=== PATIENT | female | born 1975 | race Caucasian/White ===

== ENCOUNTER 2018-11-11 12:19 | Outpatient (CLI) | payer MEDICARE, MEDICAID ==
[~2018-11-11] VITALS: Ht 170.2 cm; Wt 133.4 kg
[~2018-11-11 12:19] MED LIST: diphenhydrAMINE 25 MG CAP PO SCH
[2018-11-11 12:33] VITALS: BP 140/76
[2018-11-11 14:00] VITALS: BP 136/59
[2018-11-11] MEDS ORDERED: ACETAMINOPHEN 325 MG TAB PO ONE (14:00)
[2018-11-11 23:43] VITALS: BP 198/90
[2018-11-11] MEDS ORDERED: amLODIPine 5 MG TAB PO ONE (23:45)
== END 2018-11-12 00:10 | disposition home or self-care (01) ==
LOC: M OPCLI4PV 12:19 → M MSPAV 12:22 → M OPCLI4PV 11-12 00:10
PROVIDERS: ATTEND Internal Medicine Nephrology
DX: N18.6 End stage renal disease (principal); D63.1 Anemia in chronic kidney disease; Z88.3 Allergy status to other anti-infective agents; Z88.8 Allergy status to other drugs, medicaments and biological substances; Z91.048 Other nonmedicinal substance allergy status; Z91.018 Allergy to other foods
CPT/HCPCS: 36415; 36430; 86850; 86900; 86901; 86920; P9016

== ENCOUNTER → 2019-01-11 | Outpatient (REF) | payer MEDICARE, MEDICAID ==
[~2019-01-11] MED LIST changes: +CINA60TA3; +MELA3TAB; +PANT40TA3; +RENV2.4P; +RENV2TAB; +TRAZ-252; +VITA500045; +[UNRECOGNIZED DRUG - CODE]; -diphenhydrAMINE 25 MG CAP PO SCH
[2019-01-11 17:55] LABS: BASO # 0.1 10^3/uL (0.0-0.2); BASO % 0.8 % (0.0-1.0); EOS # 1.1 10^3/uL (0.0-0.50); EOS % 14.1 % (0.0-3.0); HEMATOCRIT 29.2 % (36.0-47.0); HEMOGLOBIN 9.2 g/dl (12.0-15.5); LYMPH # 2.5 10^3/uL (1.5-4.5); LYMPH % 31.1 % (24.0-44.0); MEAN CORPUSCULAR HEMOGLOBIN 30.4 pg (27.0-33.0); MEAN CORPUSCULAR HGB CONC 31.5 g/dl (32.0-36.5); MEAN CORPUSCULAR VOLUME 96.4 fl (80.0-96.0); MONO # 0.7 10^3/uL (0.0-0.8); MONO % 9.2 % (0.0-5.0); NEUTROPHILS # 3.6 10^3/uL (1.8-7.7); NEUTROPHILS % 44.5 % (36.0-66.0); PLATELET COUNT, AUTOMATED 318 10^3/uL (150-450); RED BLOOD COUNT 3.03 10^6/uL (4.00-5.40)
[2019-01-11 18:17] LABS: ALBUMIN 3.3 GM/DL (3.2-5.2); BILIRUBIN,TOTAL 0.3 MG/DL (0.2-1.0); CALCIUM LEVEL 8.7 MG/DL (8.5-10.1); CHOLESTEROL RISK RATIO 4.974 (<5); CREATININE FOR GFR 7.2 MG/DL (0.55-1.30); FREE T4 0.83 NG/DL (0.76-1.46); GLOMERULAR FILTRATION RATE 6.7 (>58); POTASSIUM SERUM 4.2 MEQ/L (3.5-5.1); THYROID STIMULATING HORMONE 2.57 uIU/ML (0.358-3.740); TOTAL PROTEIN 6.8 GM/DL (6.4-8.2)
[2019-01-11 18:19] LABS: TOTAL 25(OH) VITAMIN D 16.5 NG/ML (30.0-100.0)
[2019-01-11 19:30] LABS: HEMOGLOBIN A1c 4.9 %
[2019-01-15 00:07] LABS: Lyme Disease IgG/IgM Antibodie <0.91 ISR (0.00-0.90); Lyme Disease IgM Ab Quantitati <0.80 index (0.00-0.79)
== END ==
LOC: M LAB REF 17:05
PROVIDERS: ATTEND Family Medicine
DX: Z13.228 Encounter for screening for other metabolic disorders (principal); E07.9 Disorder of thyroid, unspecified; E78.00 Pure hypercholesterolemia, unspecified

== ENCOUNTER → 2019-01-22 | Outpatient (CLI) | payer MEDICARE, MEDICAID ==
[~2019-01-22] MED LIST changes: +BUPIVACAINE HCL 0.5% 10 ML VIAL As Ordered ONE; +ISOVUE-300 61% 50ML VIAL (Q9967) As Ordered ONE; +LIDOCAINE 2% MDV 20 ML VIAL As Ordered ONE; +MIDAZOLAM INJ 2 MG/2 ML VIAL (J2250) As Ordered ONE; +diphenhydrAMINE INJ 50MG/ML VIAL (J1200) As Ordered ONE; +fentaNYL 100 MCG/2 ML INJECTION (J3010) As Ordered ONE
[2019-01-22 10:07] VITALS: BP 118/60
--- NOTE | 2019-01-24 08:16 | REPIR ---
DATE OF PROCEDURE: 01/22/2019 PREOPERATIVE DIAGNOSES: End-stage renal disease. Dysfunctional left basilic vein transposition arteriovenous fistula with aneurysmal degeneration and increased venous pressure. POSTOPERATIVE DIAGNOSES: End-stage renal disease. Dysfunctional left basilic vein transposition arteriovenous fistula with aneurysmal degeneration and increased venous pressure. PROCEDURE: Left basilic transposition arteriovenous fistulogram. Retrograde left brachial artery angiogram. SURGEON: Dr. Kilo Headley. TEST DESK TROUBLE LOCATOR: Jayna Britt. ANESTHESIA: Local with 2 mL of 2% lidocaine mixed with 0.5% Marcaine. FLUORO TIME: 0.1 minutes. CONTRAST: 4 mL of Isovue-300 HEPARIN: None. COMPLICATION: None. DRAINS: None. SPECIMEN: None. IMPLANT: None. INDICATION: The patient is a 43-year-old female with end-stage renal disease who dialyzes through a left basilic vein transposition arteriovenous fistula who has had difficulty with cannulation aneurysmal generation and high venous pressures during hemodialysis. The patient will undergo a fistulogram with possible angioplasty stent and/or atherectomy. DESCRIPTION OF PROCEDURE: The patient was taken to the angiography suite, placed supine on the angiography table and then prepped and draped in a standard surgical fashion. The fistula was cannulated with a micropuncture needle after anesthetizing the overlying skin with lidocaine mixed with 0.5% Marcaine. Micropuncture wire was advanced to through the micropuncture needle which was upsized to a micropuncture sheath. A fistulogram and retrograde left brachial artery angiogram were performed showing no intervention was required. T he micropuncture sheath was removed and manual compression applied at the puncture site for hemostasis. Dressings were then applied. The patient tolerated the procedure well. All instrument, sponge, needle counts were correct at the case. There were no complications. Dr. Headley was present for and directed the entire case. The patient was transferred to the holding area and subsequently discharged in stable condition. RADIOLOGY SUPERVISION INTERPRETATION: The fistulogram showed the basilic vein to be widely patent over the puncture site to the axillary vein. The axillary vein, subclavian vein and innominate vein and superior vena cava are all widely patent and dilated. The retrograde left brachial artery angiogram showed the remainder of the basilic vein to be widely patent to the brachial artery. There was no stenosis at the arteriovenous anastomosis and a good flow of the brachial artery proximal and distal to the arteriovenous anastomosis. FINAL CONCLUSIONS: The patient underwent a fistulogram and retrograde left brachial artery angiogram showing no stenosis occlusion or intervention required. The basilic vein enlarged and aneurysmal and this may be contributing to the difficulty with hemodialysis and if the patient continues to have difficulty, there is no interventional procedures that would be available and the patient would require surgical revision of the fistula in order to make the fistula smaller with more rapid flow to the aneurysmal fistula.
== END ==
LOC: M IRPRO 08:53
PROVIDERS: ATTEND Surgery Vascular Surgery
DX: N18.6 End stage renal disease (principal); G43.909 Migraine, unspecified, not intractable, without status migrainosus; F32.9 Major depressive disorder, single episode, unspecified
CPT/HCPCS: 36901; C1894; Q9967

== ENCOUNTER → 2019-04-04 | Outpatient (CLI) | payer MEDICARE, MEDICAID ==
[~2019-04-04] MED LIST changes: -BUPIVACAINE HCL 0.5% 10 ML VIAL As Ordered ONE; -ISOVUE-300 61% 50ML VIAL (Q9967) As Ordered ONE; -LIDOCAINE 2% MDV 20 ML VIAL As Ordered ONE; -MELA3TAB; +MELA3TAB63; -MIDAZOLAM INJ 2 MG/2 ML VIAL (J2250) As Ordered ONE; +VELP5CHW PO; -diphenhydrAMINE INJ 50MG/ML VIAL (J1200) As Ordered ONE; -fentaNYL 100 MCG/2 ML INJECTION (J3010) As Ordered ONE
--- NOTE | 2019-04-04 17:23 | REP ---
BILATERAL UPPER EXTREMITY DUPLEX DOPPLER ARTERIAL AND VENOUS ULTRASOUND FOR AV FISTULA MAPPING: Real-time ultrasound evaluation and duplex Doppler interrogation of bilateral upper extremity arterial and venous systems performed to evaluate for possible AV fistula placement. On the right at the level of the distal humerus at the level of the brachial artery, there is an occluded nonfunctioning AV fistula. An occluded graft is seen at the level of the proximal right radial artery. At the level of the distal humerus an occluded graft is seen along the right cephalic vein. There may be some thrombus in the proximal to mid right cephalic vein. The right basilic vein at the upper humerus measures 6 mm and at the lower humerus 5 mm. The more distal basilic vein is below the level of the AV fistula. The right cephalic vein measures 4 mm at the upper humerus and 2 mm at the lower humerus with the remainder below the level of the AV fistula. Median cubital vein measures 2 mm. Right upper extremity arterial structures demonstrate normal flow velocities with triphasic waveforms. Right axillary artery measures 5 mm as does the brachial artery. The radial and ulnar arteries measure 3 mm. On the left, there is thrombus in the jugular vein. At the level of the distal humerus an occluded graft is seen along the cephalic vein. At the level of the distal left brachial artery distal to the patent AV fistula, there is an old occluded AV fistula. The AV fistula connecting the distal left brachial artery to the basilic vein is patent. There is significantly increased velocity at the anastomosis suggesting significant stenosis, with peak systolic velocity over 400 cm/s. Complex fluid collection surrounds the mid basilic vein, measuring 5.3 x 1.7 x 3.2 cm. Left cephalic vein measures 4 mm at the upper humerus and 5 mm at the lower humerus. The more distal aspect is below the failed AV fistula. Left upper extremity arterial structures demonstrate somewhat increased velocity in the axillary artery at 176 cm/s and in the brachial artery at 261 cm/s, with monophasic waveforms in both of these vessels. The left radial artery demonstrates monophasic waveform with diameter 3 mm, and the ulnar artery biphasic waveform with diameter 4 mm. Electronically Signed by Julito Newby MD 04/06/2019 11:01 A
== END ==
LOC: M RAD 08:40
PROVIDERS: ATTEND Physician Assistant
DX: N18.9 Chronic kidney disease, unspecified (principal)

== ENCOUNTER → 2019-04-09 | Outpatient (CLI) | payer MEDICARE, MEDICAID ==
[~2019-04-09] MED LIST changes: +ISOVUE-300 61% 50ML VIAL (Q9967) As Ordered ONE; +LIDOCAINE 1% MDV 20ML VIAL As Ordered ONE; +MIDAZOLAM INJ 2 MG/2 ML VIAL (J2250) As Ordered ONE; +fentaNYL 100 MCG/2 ML INJECTION (J3010) As Ordered ONE
[2019-04-09 16:30] VITALS: BP 111/56
--- NOTE | 2019-04-09 20:29 | ROOPDOC ---
[facility] Report Of Operation Report of Operation DATE OF PROCEDURE: 04/09/19 PREPROCEDURE DIAGNOSES: End-stage renal disease on hemodialysis with poorly functioning left upper extremity AV fistula with infiltrations and high venous pressures. POSTPROCEDURE DIAGNOSES: Same PROCEDURE: 1. Left upper extremity fistulogram and central venogram 2. Angioplasty left cephalic vein, subclavian vein, innominate vein with a 14 x 40 atlas balloon 3. Completion venograms SURGEON: Aiden Hallman MD ANESTHESIA: Local anesthesia lidocaine and 4 mL. Moderate intravenous conscious sedation was supervised by Dr. Hallman. The patient was independently monitored by a registered nurse assigned to the Department of radiology using automated blood pressure, EKG, pulse oximetry. The detailed sedation record is house permanently in the hospital information system. The following is a brief sedation record: Start time 13:54, stop time 14:45, fentanyl 75 g IV, Versed 1 mg IV. INDICATION FOR PROCEDURE: This is a very pleasant 43-year-old patient with end- stage renal disease currently dialyzing with the left upper extremity brachiocephalic AV fistula that is having increased venous pressures, frequent infiltrations, pain with cannulation, and increased bleeding times after dialysis. We discussed the risks benefits and alternatives to a fistulogram and central venogram with potential intervention. I did review Dr. Headley's previous imaging, and it appeared that the entire length of the cephalic vein and outflow were well matured with no focal areas of stenosis. We will see what we find on fistulogram today. Risks benefits and alternatives were explained and the patient was agreeable to proceed. Informed consent was obtained. INTERPRETATION: 1. There is excellent inflow into the AV fistula with a large aneurysmal segment proximal to the AV anastomosis. On initial fistulogram and central venogram, it appears that the fistula is between 12-16 mm throughout its extent with widely patent outflow to the central veins in the heart. 2. Despite initial imaging at multiple angles showing widely patent flow, due to the patient's complaints and recently experiences that dialysis, we felt it was worthwhile to try and see if angioplasty would be beneficial anywhere along the length of the fistula. We found multiple areas of 50-70% stenosis that were not visible on initial fistulogram. We angioplastied all along the innominate, subclavian, and cephalic vein with a 14 x 40 atlas balloon and completion venogram showed widely patent vessels post angioplasty without spasm, extravasation, or other complication. REPORT OF OPERATION: The patient was brought to the angiographic suite in stable condition. Her left upper extremities prepped and draped in a sterile fashion. A timeout was performed. Local anesthesia was administered to skin and subcutaneous tissue over the left brachiocephalic AV fistula. A microneedle was used to access the vein and a wire was passed through this access and the needle was removed. A micro-sheath was placed under fluoroscopic guidance using a Seldinger technique in the inner cannula and wire were removed. A guidewire was advanced through this access into the central system under fluoroscopic guidance. We then removed the micro-sheath and placed a 6 [place] sheath and flushed the sheath with saline. A fistulogram and central venogram were performed. Please see interpretation above. It was initially hard to tell that there was any outflow obstruction at all, as contrast seemed to move quickly and no obvious signs of stenosis were noted. However, given the patient's complaints of poor venous flows, inadequate circulation for dialysis, pulsatility, and difficulty with cannulation and infiltrations, we felt it was worthwhile to test the entire length of the fistula back to the central system with a large balloon. The patient's fistula appeared to be between 14 and 60 mm throughout its length, and therefore we selected a 14 mm atlas balloon and began in the innominate vein with serial angioplasties back to the aneurysmal segment near the AV anastomosis. Surprisingly, we found multiple areas of 50-70% stenosis, some of which were very resistant angioplasty but eventually with persistent repeat angioplasties with the atlas balloon we were able to release the stenoses sequentially. There is 1 at the innominate IVC junction, 1 at the subclavian innominate junction, one in the subclavian vein near the thoracic outlet, 1 at the cephalic subclavian junction, and several in the cephalic vein more distally. Each area was angioplastied 2-3 times for 2 minute inflations until we had widely patent flow from the arm to the central system. Before and after the case, there was an excellent thrill over the aneurysmal part of the fistula near the AV anastomosis, but it was more pulsatile more proximally up the arm, but after the procedure the entire fistula had an excellent thrill and the pulsatility was resolved. There was no extravasation spasm or other complications with angioplasty and completion venograms. We placed a Prolene suture at the access site and secured this with Steri-Strips. Sterile dressings were applied and the patient was taken to recovery in stable condition. ESTIMATED BLOOD LOSS: Approximately 5 mL. COMPLICATIONS: None. PLAN: It is okay to use the fistula for dialysis. We will need to see the patient back in a week to see how she is doing, and then again in 4-6 weeks to check her fistula. At that point, she may need a repeat angioplasty to improve her outflow she is having issues. We will see how she is doing. AIDEN HALLMAN MD Apr 09, 2019 14:55
== END ==
LOC: M IRPRO 09:00
PROVIDERS: ATTEND Surgery Vascular Surgery
DX: T82.898A Other specified complication of vascular prosthetic devices, implants and grafts, initial encounter (principal); N18.6 End stage renal disease; X58.XXXA Exposure to other specified factors, initial encounter; Y93.9 Activity, unspecified; Y92.9 Unspecified place or not applicable; Y99.9 Unspecified external cause status
CPT/HCPCS: 36902; 36907; 99152; 99153; C1725; C1769; C1894; J2250; J3010; Q9967

== ENCOUNTER → 2019-04-30 | Outpatient (CLI) | payer MEDICARE, MEDICAID ==
[~2019-04-30] MED LIST changes: -ISOVUE-300 61% 50ML VIAL (Q9967) As Ordered ONE; -LIDOCAINE 1% MDV 20ML VIAL As Ordered ONE; -MIDAZOLAM INJ 2 MG/2 ML VIAL (J2250) As Ordered ONE; -fentaNYL 100 MCG/2 ML INJECTION (J3010) As Ordered ONE
--- NOTE | 2019-04-30 09:47 | REP ---
MRI lumbar spine: New 04/30/2019. Indication: Low back pain. Comparison: None. Technique: New multiplanar short and long TR sequences of the lumbar spine were obtained without IV Gadolinium. Findings: Minimal anterolisthesis of L4-L5 is present. No worrisome marrow signal is present. New the visualized cord is normal. Disc desiccation and disc space narrowing are present at L3/L4, L4/L5 and L5/S1. No significant paraspinal soft tissue abnormalities are present. L1/L2 and L2/L3: Unremarkable. L3/L4: Mild diffuse disc bulge and bilateral facet arthropathy are present without significant spinal canal or neural foraminal narrowing. L4/L5: Significant bilateral facet arthropathy is present. Mild diffuse disc uncovering/bulge is present. Mild recess and neural foraminal narrowing is present bilaterally. L5/S1: There is a small left lateral disc protrusion and associated tiny annular fissure. Mild left recess / neural foraminal narrowing is present. Impression: Lower lumbar degenerative sequelae as described most pronounced on the left at L5/S1. Electronically Signed by Jose J Aj DO 04/30/2019 09:38 A
== END ==
LOC: M RAD 06:52
PROVIDERS: ATTEND Family Medicine
DX: M54.5 Low back pain (principal)

== ENCOUNTER → 2019-07-30 | Outpatient (CLI) | payer MEDICARE, MEDICAID ==
[~2019-07-30] MED LIST changes: +HEPARIN 1,000 UNITS/ML 10ML VIAL (FOR RADIOLOGY& DIALYSIS ONLY)(J1644-10) As Ordered ONE; +ISOVUE-300 61% 50ML VIAL (Q9967) As Ordered ONE; +LIDOCAINE 1% MDV 20ML VIAL As Ordered ONE; +MIDAZOLAM INJ 2 MG/2 ML VIAL (J2250) As Ordered ONE; +PAME25CA PO; +fentaNYL 100 MCG/2 ML INJECTION (J3010) As Ordered ONE
--- NOTE | 2019-07-30 17:26 | ROOPDOC ---
[facility] Report Of Operation Report of Operation DATE OF PROCEDURE: 07/30/19 PREPROCEDURE DIAGNOSES: End-stage renal disease with poor flow is left upper extremity AV fistula difficulty with cannulation POSTPROCEDURE DIAGNOSES: Same PROCEDURE: 1. Ultrasound-guided access left AV fistula 2. Left upper extremity fistulogram and central venogram 3. Angioplasty of the left axillary vein, subclavian vein with 12 x 80 [place] balloon 4. Completion venograms SURGEON: Aiden Hallman MD ANESTHESIA: Local anesthesia 5 mL lidocaine. Moderate intravenous conscious sedation was administered by Dr. Hallman. The patient was independently monitored by registered nurse assigned to the Department of radiology using automated blood pressure, EKG, and pulse oximetry. The detailed sedation record is primally stored in the hospital information system. The following is a brief sedation record: Start time 16:31, stop time 16:57, fentanyl 50 g IV, Versed 1 mg IV. INDICATION FOR PROCEDURE: This is a very pleasant 43-year-old patient who has had increased difficulty with cannulation dialysis and poor flows, and we dis cussed the risks benefits and alternatives to fistulogram potential intervention. The patient is agreeable to proceed. Informed consent was obtained. INTERPRETATION: 1. The AV anastomosis is widely patent with wide open flow into a largely aneurysmal vein in the upper forearm. There is a mild stenosis in the axillary vein, about 40%, and a moderate stenosis in the subclavian vein, about 60%. Both areas of stenosis are widely patent with no significant residual stenosis after angioplasty with a 12 x 40 [place] balloon with no extravasation noted. The central veins otherwise are widely patent. REPORT OF OPERATION: The patient was brought to the angiographic suite in stable condition and lay supine on the fluoroscopic table. Her left upper extremity was prepped and draped in a sterile fashion. A timeout was performed. Local anesthesia was administered to the skin and subcutaneous tissue and a microneedle was used to access the fistula under ultrasound guidance. A wire was passed through this access under ultrasound guidance to navigated through the aneurysmal segments of the fistula. The needle was removed and a micro-sheath was placed over the wire using a Seldinger technique. Through this access, Glidewire was advanced into the central system and the sheath was removed and a 6 Russian sheath was placed and flushed with saline. A fistulogram and central venogram were performed. Please see interpretation above. We then exchange the sheath for a 7 Russian sheath and flushed the sheath with saline. We advanced a 12 x 80 [place] balloon across the axillary vein stenosis and a three-minute inflations at high atmospheres was performed with good resolution of the stenosis and no significant residual stenosis. No extravasation was noted. We advanced the balloon sequentially through the proximal axillary and the subclavian artery and a 60% stenosis was noted in the subclavian artery and a three-minute inflations was done at this location with high atmospheres and following this there was no extravasation and good resolution of the stenosis with no significant residual stenosis. There was excellent flow from the AV anastomosis all the way through to the central system and an excellent thrill in the fistula. This concluded the procedure. A Prolene suture was placed in a [id number] pattern at the sheath site in the sheath was removed. The suture was secured with Steri-Strips and pressure was held for 5 minutes for good hemostasis sterile dressings were applied. The stitch will be removed before the patient leaves today. ESTIMATED BLOOD LOSS: Approximately 2 mL. COMPLICATIONS: None. PLAN: Our plan will be to see the patient back on an as-needed basis. It is okay to use the fistula for dialysis. We appreciate the opportunity to participate in the care of this patient. AIDEN HALLMAN MD Jul 30, 2019 17:26
[2019-07-30 17:35] VITALS: BP 138/69
== END ==
LOC: M IRPRO 14:15
PROVIDERS: ATTEND Surgery Vascular Surgery
DX: T82.590A Other mechanical complication of surgically created arteriovenous fistula, initial encounter (principal); N18.6 End stage renal disease; X58.XXXA Exposure to other specified factors, initial encounter; Y93.9 Activity, unspecified; Y92.9 Unspecified place or not applicable; Y99.9 Unspecified external cause status; Z99.2 Dependence on renal dialysis
CPT/HCPCS: 36902; 99152; 99153; C1725; C1769; C1894; J1644; J2250; J3010; Q9967

== ENCOUNTER → 2019-08-29 | Outpatient (CLI) | payer MEDICARE, MEDICAID ==
[~2019-08-29] MED LIST changes: -HEPARIN 1,000 UNITS/ML 10ML VIAL (FOR RADIOLOGY& DIALYSIS ONLY)(J1644-10) As Ordered ONE; -ISOVUE-300 61% 50ML VIAL (Q9967) As Ordered ONE; -LIDOCAINE 1% MDV 20ML VIAL As Ordered ONE; +METHACHOLINE KIT (J7674) INH ONE; -MIDAZOLAM INJ 2 MG/2 ML VIAL (J2250) As Ordered ONE; -fentaNYL 100 MCG/2 ML INJECTION (J3010) As Ordered ONE
--- NOTE | 2019-08-29 08:19 | PFTRPT ---
Site: [facility], [address] [place], [address] ID: [id number] Name: ENIO HARRINGTON Visit Date: 08/29/2019 Second ID: [id number] Referring Doctor: Niecy CARIAS, Juanita Alatorre Reviewing Doctor: Elijah Caceres MD Department Chairperson: Nasir BOLIVAR RRT Age: 43 : 1975 Sex: Female Race: Height: 65.50 Inches Weight: 303.00 Lbs BSA: 2.37 Order IDs: [id number] Requested Test(s): <RESP-PFT.METH CHAL> Diagnosis: R06.00 of albuterol for postbronchodilator. Review Status: Not Reviewed Pre-Bronch Post-Bronch Pred Actual %Pred Actual %Chng SPIROMETRY FVC (L) 3.86 3.40 88 3.22 -5 FEV1 (L) 3.13 2.89 92 2.80 -3 FEV1/FVC (%) 82 85 103 87 2 FEF 25% (L/sec) 5.58 7.06 126 6.06 -14 FEF 50% (L/sec) 4.16 5.21 125 4.53 -13 FEF 75% (L/sec) 1.63 1.33 81 1.09 -18 FEF 25-75% (L/sec) 3.16 3.79 119 3.32 -12 FEF Max (L/sec) 7.18 7.10 98 6.20 -12 FIVC (L) 3.28 3.04 -7 FIF 50% (L/sec) 4.48 3.95 88 3.15 -20 FIF Max (L/sec) 4.18 3.54 -15 Expiratory Time (sec) 6.97 7.12 2 Back Extrap Vol (L) 0.15 0.13 -10 Time To FEFmax (sec) 0.111 0.106 -4
== END ==
LOC: M CARPUL 07:24
PROVIDERS: ATTEND Internal Medicine Pulmonary Disease
DX: R06.00 Dyspnea, unspecified (principal)
CPT/HCPCS: 94070; 95070; J7674

== ENCOUNTER → 2019-10-01 | Outpatient (CLI) | payer MEDICARE, MEDICAID ==
[~2019-10-01] MED LIST changes: -METHACHOLINE KIT (J7674) INH ONE
== END ==
LOC: M LABSMTC 12:12
PROVIDERS: ATTEND Family Medicine
DX: Z11.59 Encounter for screening for other viral diseases (principal); Z20.828 Contact with and (suspected) exposure to other viral communicable diseases

== ENCOUNTER 2019-10-12 18:25 | Emergency (ER) | payer MEDICARE, MEDICAID ==
[~2019-10-12 18:25] MED LIST changes: -CINA60TA3; +CINA60TA3 PO
[2019-10-12] MEDS ORDERED: GABA-1171 (18:42)
[2019-10-12] MEDS ORDERED: CYCL5TAB (18:42)
[2019-10-12 19:11] LABS: HEMATOCRIT 37.4 % (36.0-47.0); HEMOGLOBIN 12.1 g/dl (12.0-15.5); MEAN CORPUSCULAR HEMOGLOBIN 31.8 pg (27.0-33.0); MEAN CORPUSCULAR HGB CONC 32.4 g/dl (32.0-36.5); MEAN CORPUSCULAR VOLUME 98.4 fl (80.0-96.0); PLATELET COUNT, AUTOMATED 465 10^3/uL (150-450); WHITE BLOOD COUNT 10.9 10^3/uL (4.0-10.0)
[2019-10-12 19:44] LABS: CALCIUM LEVEL 7.9 MG/DL (8.5-10.1); CREATININE FOR GFR 10.5 MG/DL (0.55-1.30); GLOMERULAR FILTRATION RATE 4.3 (>58); POTASSIUM SERUM 4.5 MEQ/L (3.5-5.1)
--- NOTE | 2019-10-12 19:45 | ECGEPIP ---
[facility] - ED Test Date: 2019-10-12 Pat Name: ENIO HARRINGTON Department: Room: - Gender: Female X Ray Technician: myla : 1975 Requested By: Ricky Zaidi Order Number: [id number] Reading MD: Ricky Zaidi Measurements Intervals [place] Rate: 66 P: 17 NE: 157 QRS: 12 QRSD: 110 T: 7 QT: 447 QTc: 472 Interpretive Statements SINUS RHYTHM INFERIOR MYOCARDIAL INFARCTION, PROBABLY OLD NONSPECIFIC ST T WAVE CHANGES NO PRIOR ECG FOR COMPARISON Electronically Signed on 10-12-2019 19:45:25 EDT by Ricky Zaidi
--- NOTE | 2019-10-12 20:17 | REP ---
Clinical: End-stage renal disease and hypotension . Comparison: None . Technique: PA and lateral. Findings: The mediastinum and cardiac silhouette are normal. The lung shepard are clear and without acute consolidation, effusion, or pneumothorax. The skeletal structures are intact and normal. Impression: 1. No acute cardiopulmonary process. Electronically Signed by Leonel Ortiz MD 10/12/2019 08:08 P
[2019-10-12 21:53] VITALS: BP 128/59
== END 2019-10-12 22:30 | disposition home or self-care (01) ==
LOC: EDBD 18:25 → M ED 18:25
DX: I95.1 Orthostatic hypotension (principal); N18.6 End stage renal disease; Z99.2 Dependence on renal dialysis; N80.9 Endometriosis, unspecified; D25.9 Leiomyoma of uterus, unspecified; F43.10 Post-traumatic stress disorder, unspecified; K52.9 Noninfective gastroenteritis and colitis, unspecified; Z98.84 Bariatric surgery status; Z90.5 Acquired absence of kidney; Z90.81 Acquired absence of spleen; Z90.49 Acquired absence of other specified parts of digestive tract; Z88.1 Allergy status to other antibiotic agents; Z88.8 Allergy status to other drugs, medicaments and biological substances; Z79.899 Other long term (current) drug therapy

== ENCOUNTER → 2019-10-24 | Outpatient (REF) | payer MEDICARE, MEDICAID ==
[~2019-10-24] MED LIST changes: +CYCL5TAB; +GABA-1171
[2019-10-24 13:40] LABS: BASO # 0.1 10^3/uL (0.0-0.2); BASO % 1.4 % (0.0-1.0); EOS % 9.9 % (0.0-3.0); HEMATOCRIT 43.3 % (36.0-47.0); HEMOGLOBIN 13.6 g/dl (12.0-15.5); LYMPH # 3.9 10^3/uL (1.5-5.0); LYMPH % 37.9 % (24.0-44.0); MEAN CORPUSCULAR HEMOGLOBIN 31.3 pg (27.0-33.0); MEAN CORPUSCULAR HGB CONC 31.4 g/dl (32.0-36.5); MEAN CORPUSCULAR VOLUME 99.5 fl (80.0-96.0); MONO # 0.9 10^3/uL (0.0-0.8); MONO % 8.4 % (0.0-5.0); NEUTROPHILS # 4.3 10^3/uL (1.5-8.5); NEUTROPHILS % 42.1 % (36.0-66.0); PLATELET COUNT, AUTOMATED 419 10^3/uL (150-450); RED BLOOD COUNT 4.35 10^6/uL (4.00-5.40); WHITE BLOOD COUNT 10.3 10^3/uL (4.0-10.0)
[2019-10-24 13:47] LABS: ALBUMIN 3.3 GM/DL (3.2-5.2); BILIRUBIN,TOTAL 0.3 MG/DL (0.2-1.0); CALCIUM LEVEL 8.6 MG/DL (8.5-10.1); CHOLESTEROL RISK RATIO 6.119 (<5); CREATININE FOR GFR 7.28 MG/DL (0.55-1.30); FREE T4 0.93 NG/DL (0.76-1.46); GLOMERULAR FILTRATION RATE 6.6 (>58); POTASSIUM SERUM 4.7 MEQ/L (3.5-5.1); THYROID STIMULATING HORMONE 2.23 uIU/ML (0.358-3.740); TOTAL PROTEIN 7.5 GM/DL (6.4-8.2)
[2019-10-24 13:50] LABS: TOTAL 25(OH) VITAMIN D 14.8 NG/ML (30.0-100.0)
== END ==
LOC: M LAB REF 12:01
PROVIDERS: ATTEND Nurse Practitioner Family
DX: M25.551 Pain in right hip (principal); E78.5 Hyperlipidemia, unspecified; M54.5 Low back pain; R06.00 Dyspnea, unspecified

== ENCOUNTER 2019-11-15 15:18 | Emergency (ER) | payer MEDICARE, MEDICAID ==
[~2019-11-15] VITALS: Ht 165.1 cm; Wt 137.1 kg
[~2019-11-15 15:18] MED LIST changes: -CYCL5TAB; +CYCL5TAB PO; -GABA-1171; +GABA-1171 PO; -MELA3TAB63; +MELA3TAB70; +PANT40TA29; -PANT40TA3
[2019-11-15] MEDS ORDERED: ATOR1TAB19 PO (16:24)
[2019-11-15] MEDS ORDERED: VITA50005 IV (16:24)
[2019-11-15 18:09] LABS: BASO # 0.1 10^3/uL (0.0-0.2); EOS # 0.8 10^3/uL (0.0-0.5); EOS % 8.6 % (0.0-3.0); HEMOGLOBIN 11.5 g/dl (12.0-15.5); LYMPH # 3.1 10^3/uL (1.5-5.0); LYMPH % 31.5 % (24.0-44.0); MEAN CORPUSCULAR HEMOGLOBIN 31.2 pg (27.0-33.0); MEAN CORPUSCULAR HGB CONC 31.9 g/dl (32.0-36.5); MEAN CORPUSCULAR VOLUME 97.6 fl (80.0-96.0); NEUTROPHILS # 4.7 10^3/uL (1.5-8.5); NEUTROPHILS % 48.6 % (36.0-66.0); PLATELET COUNT, AUTOMATED 292 10^3/uL (150-450); RED BLOOD COUNT 3.69 10^6/uL (4.00-5.40); WHITE BLOOD COUNT 9.7 10^3/uL (4.0-10.0)
[2019-11-15 18:22] VITALS: BP 106/56
--- NOTE | 2019-11-18 09:59 | REP ---
CHEST: REASON FOR EXAM: Hypotension. COMPARISON EXAM: 10/12/[address] Preliminary report given by Dr. Ortiz. The technique utilized in obtaining the radiograph has magnified the cardiac silhouette and accentuated the interstitial markings. FINDINGS: The superior mediastinal structures are midline. The cardiac silhouette is unremarkable in size, shape, and position. The diaphragmatic surfaces of the lungs are regular, and the costophrenic angles are clear. The pulmonary shepard are clear. The imaged osseous structures are intact. IMPRESSION: There is no acute cardiopulmonary disease. No change from the prior exam. Electronically Signed by Philippe Olguin DO 11/18/2019 10:56 A
[2019-12-12] MEDS ORDERED: TOPA50TA8 PO (11:48)
== END 2019-11-15 18:30 | disposition home or self-care (01) ==
LOC: M ED 15:18
DX: I95.1 Orthostatic hypotension (principal); K52.9 Noninfective gastroenteritis and colitis, unspecified; N18.6 End stage renal disease; Z79.899 Other long term (current) drug therapy; Z88.8 Allergy status to other drugs, medicaments and biological substances; Z99.2 Dependence on renal dialysis

== ENCOUNTER 2019-12-12 15:41 | Emergency (ER) | payer MEDICARE, MEDICAID ==
[~2019-12-12] VITALS: Ht 165.1 cm; Wt 132.0 kg
[~2019-12-12 15:41] MED LIST changes: +ATOR1TAB19 PO; +MELA3TAB63; -MELA3TAB70; +TOPA50TA8 PO; +VITA50005 IV
[2019-12-12 16:45] LABS: BASO # 0.1 10^3/uL (0.0-0.2); BASO % 0.9 % (0.0-1.0); EOS # 0.5 10^3/uL (0.0-0.5); EOS % 4.1 % (0.0-3.0); HEMATOCRIT 39.5 % (36.0-47.0); HEMOGLOBIN 12.3 g/dl (12.0-15.5); LYMPH # 2.8 10^3/uL (1.5-5.0); MEAN CORPUSCULAR HEMOGLOBIN 31.3 pg (27.0-33.0); MEAN CORPUSCULAR HGB CONC 31.1 g/dl (32.0-36.5); MEAN CORPUSCULAR VOLUME 100.5 fl (80.0-96.0); MONO # 1.3 10^3/uL (0.0-0.8); MONO % 11.1 % (0.0-5.0); NEUTROPHILS # 6.6 10^3/uL (1.5-8.5); NEUTROPHILS % 58.5 % (36.0-66.0); PLATELET COUNT, AUTOMATED 383 10^3/uL (150-450); RED BLOOD COUNT 3.93 10^6/uL (4.00-5.40); WHITE BLOOD COUNT 11.3 10^3/uL (4.0-10.0)
[2019-12-12] MEDS ORDERED: NS 500 ML IV ONE (16:45)
[2019-12-12 17:14] LABS: INR 1.18; PARTIAL THROMBOPLASTIN TIME 29.1 SECONDS (25.0-38.4); PROTHROMBIN TIME 14.7 SECONDS (11.8-14.0)
[2019-12-12 17:18] LABS: ALBUMIN 3.2 GM/DL (3.2-5.2); ALT/SGPT 14 U/L (12-78); BILIRUBIN,DIRECT 0.1 MG/DL (0.0-0.2); BILIRUBIN,TOTAL 0.4 MG/DL (0.2-1.0); BLOOD UREA NITROGEN 24 MG/DL (7-18); CALCIUM LEVEL 8.5 MG/DL (8.5-10.1); CARBON DIOXIDE LEVEL 30 MEQ/L (21-32); CHLORIDE LEVEL 100 MEQ/L (98-107); CK-MB VALUE MASS < 1.0 NG/ML (<3.6); CPK CREATINE PHOSPHOKINASE 65 U/L (26-192); CREATININE FOR GFR 7.29 MG/DL (0.55-1.30); FREE T4 1.15 NG/DL (0.76-1.46); GLOMERULAR FILTRATION RATE 6.6 (>58); GLUCOSE, FASTING 79 MG/DL (70-100); LIPASE 102 U/L (73-393); MAGNESIUM LEVEL 1.9 MG/DL (1.8-2.4); MB/CK RELATIVE INDEX 1.54 (< OR =4); POTASSIUM SERUM 3.8 MEQ/L (3.5-5.1); SODIUM LEVEL 139 MEQ/L (136-145); TOTAL PROTEIN 7.1 GM/DL (6.4-8.2); TROPONIN I < 0.02 NG/ML (< 0.10)
[2019-12-12 17:32] LABS: HCG, SERUM QUALITATIVE NEGATIVE (NEGATIVE)
--- NOTE | 2019-12-12 18:15 | REP ---
clinical: Near-syncopal episode . Comparison: 11/15/2019 . Findings: The mediastinum and cardiac silhouette are stable and within normal limits for portable technique. The lung shepard are clear without acute consolidation, effusion, or pneumothorax. Skeletal structures are intact. Impression: No acute cardiopulmonary process appreciated. Electronically Signed by Leonel Ortiz MD 12/12/2019 06:07 P
[2019-12-12 18:41] VITALS: BP 110/69
--- NOTE | 2019-12-12 19:02 | REPVR ---
PROCEDURE INFORMATION: Exam: CT Abdomen And Pelvis Without Contrast Exam date and time: 12/12/2019 6:15 PM Age: 43 years old Clinical indication: Abdominal pain; Generalized; Additional info: Gen abd pain TECHNIQUE: Imaging protocol: Computed tomography of the abdomen and pelvis without contrast. Radiation optimization: All CT scans at this facility use at least one of these dose optimization techniques: automated exposure control; mA and/or kV adjustment per patient size (includes targeted exams where dose is matched to clinical indication); or iterative reconstruction. COMPARISON: No relevant prior studies available. FINDINGS: Lungs: The lung bases are unremarkable. Mediastinal space: There is a hiatal hernia. Liver: There are no focal liver lesions present. Gallbladder and bile ducts: Probable cholecystectomy. Pancreas: The pancreas is normal. Spleen: Splenectomy. Adrenals: The adrenal glands are unremarkable. Kidneys and ureters: Neither of the kidneys are identified. Stomach and bowel: Evidence of gastric surgery. There is no evidence of intestinal obstruction. Appendix: No evidence of appendicitis. Intraperitoneal space: Unremarkable. No free air. No significant fluid collection. Vasculature: The aorta is unremarkable. Lymph nodes: Unremarkable. No enlarged lymph nodes. Bladder: The urinary bladder is empty and therefore not assessed. Reproductive: There is a lobulated margin of the uterus likely due to leiomyomata. Bones/joints: No significant skeletal findings. Soft tissues: There is a 1.1 cm nodular density in the subcutaneous soft tissues of the anterior abdominal wall to the left of midline series 201, image 64 and at this same level there is a similar appearing nodular density superficial to the peritoneum in the midline likely postsurgical. Just below this level there is an anterior abdominal wall hernia which contains adipose tissue. IMPRESSION: There appears to have been multiple prior surgical procedures without evidence of bowel obstruction or inflammation. The lobulated appearance of the uterus may be due to leiomyomata however there could also be an adjacent pelvic renal transplant since the [place] kidneys are not visualized. Evaluation is limited on this noncontrast study. Electronically signed by: Elza Hallman On 12/12/2019 19:02:08 PM
--- NOTE | 2019-12-13 00:49 | ECGEPIP ---
[facility] - ED Test Date: 2019-12-12 Pat Name: ENIO HARRINGTON Department: Room: - Gender: Female [place] Operator: Donavan AIKEN : 1975 Requested By: MAY Gunn Order Number: [id number] Reading MD: Jose Sandhu Measurements Intervals [place] Rate: 75 P: 12 NC: 154 QRS: 10 QRSD: 104 T: 6 QT: 433 QTc: 486 Interpretive Statements SINUS RHYTHM INFERIOR MYOCARDIAL INFARCTION, PROBABLY OLD Nonspecific ST-T wave abnormalities Baseline artifact Similar to tracing done 10-12-19 Electronically Signed on 12-13-2019 0:49:28 EDT by Jose Sandhu
== END 2019-12-12 19:43 | disposition home or self-care (01) ==
LOC: EDBD 15:41 → M ED 15:41
DX: R55 Syncope and collapse (principal); N18.6 End stage renal disease; F43.10 Post-traumatic stress disorder, unspecified; K52.9 Noninfective gastroenteritis and colitis, unspecified; Z99.2 Dependence on renal dialysis; Z88.1 Allergy status to other antibiotic agents; Z88.8 Allergy status to other drugs, medicaments and biological substances; Z91.048 Other nonmedicinal substance allergy status; Z98.84 Bariatric surgery status

== ENCOUNTER → 2019-12-17 | Outpatient (CLI) | payer MEDICARE, MEDICAID ==
[~2019-12-17] MED LIST changes: +ISOVUE-300 61% 50ML VIAL As Ordered ONE; +LIDOCAINE 1% MDV 20ML VIAL As Ordered ONE; +MIDAZOLAM INJ 2MG/2ML VIAL (J2250 PER 1MG) As Ordered ONE; -PANT40TA29; +PANT40TA3; +fentaNYL 100 MCG/2 ML INJECTION (J3010) As Ordered ONE
--- NOTE | 2019-12-17 12:57 | ROOPDOC ---
[facility] Report Of Operation Report of Operation DATE OF PROCEDURE: 12/17/19 PREPROCEDURE DIAGNOSES: End-stage renal disease on dialysis with poor flows left brachial basilic AV fistula POSTPROCEDURE DIAGNOSES: Same PROCEDURE: 1. Ultrasound examination of left arteriovenous anastomosis and ultrasound- guided access left brachial basilic fistula 2. Left upper extremity fistulogram and central venogram 3. Angioplasty of left basilic vein, axillary vein, and subclavian vein with 12 x 80 [place] balloon 4. Completion venograms SURGEON: Aiden Hallman MD ANESTHESIA: Local anesthesia 3 mL lidocaine. Moderate intravenous conscious sedation was administered by Dr. Hallman. The patient was independently monitored by a registered nurse assigned to the Department of radiology using automated blood pressure, EKG, and pulse oximetry. The detailed sedation record is permanently stored in the hospital information system. The following is a brief sedation record: Start time 11:57, stop time 12:29, Versed 0.5 mg IV, fentanyl 25 g IV. CONTRAST: 25 mL Isovue-300 INDICATION FOR PROCEDURE: This is a very pleasant 43-year-old patient with end- stage renal disease currently dialyzing with a left upper extremity brachial basilic AV fistula. She has very limited options for further access due to a long-standing history of failed access is in the bilateral upper extremities. We are trying to maintain patency in her existing access as long as possible. Recently, the patient has had poor flows and increased venous pressures with dialysis. Risks benefits and alternatives to a fistulogram potential intervention were explained to the patient and she is agreeable to proceed. Informed consent was obtained. INTERPRETATION: 1. Examination of the arteriovenous anastomosis with ultrasound reveals widely patent flow and a color flow image of this was saved, along with an image of the ultrasound-guided venous access. 2. On fistulogram, the AV anastomosis is also shown to be widely patent with no signs of obstruction in the inflow. There is also good arterial flow as well proximal and distal to the anastomosis. The basilic vein is aneurysmal in the areas of frequent access just proximal to the AV anastomosis, and then is fairly large throughout the outflow back to the heart. There is approximately 30% stenosis at the junction between the transposed basilic vein and its original anatomy, a 30% stenosis in the axillary vein, and a 30-40% stenosis in the subclavian vein. All of these are focal stenoses. 3. After angioplasty in the basilic vein, the axillary vein, and the subclavian vein, there is widely patent flow back to the heart with no signs of extravasation and no significant residual stenosis. There is an excellent thrill and the fistula. REPORT OF OPERATION: The patient was brought to the angiographic suite in stable condition. Her left upper extremity was prepped and draped in a sterile fashion. A timeout was performed. Local anesthesia was administered to skin and subcutaneous tissue over the basilic vein near the AV anastomosis. Ultrasound was first used to examine the AV anastomosis with color flow. The AV anastomosis was seen to be widely patent with no signs of inflow obstruction. We then utilized ultrasound to gain access to the basilic vein with a microneedle. A wire was passed through this access under fluoroscopic guidance and the needle was removed and a 4 [place] sheath was placed and flushed with saline. A fistulogram and central venogram were performed. Please see interpretation above. We then exchange the sheath over a Glidewire for a 7 [place] sheath and flushed the sheath was saline. We then angioplasty first the subclavian stenoses for three-minute inflations, and there was quite a waist on the balloon indicating this may have been a more significant stenosis then originally assessed. We then did a three-minute inflations across the stenoses in the axillary vein, and this also was a significant waist on the balloon, indicating there may have been a titer stenosis than we initially appreciated. Following this, we did a three-minute inflations across the proximal basilic vein and then did completion fistulogram. There was widely patent inflow through the basilic vein, through the axillary vein, and through the subclavian vein back to the central system. Flow was brisk. No significant residual stenosis was noted, and no embolization or extravasation were noted. There was an excellent thrill and the fistula. Local anesthesia was administered around the sheath. We then used a Prolene suture in a owdesi-mu-ayefa pattern to close the access site upon removal of the sheath. Steri-Strips and sterile dressings were applied and the patient was then allowed to awaken and taken to recovery in stable condition. She tolerated the procedure and the sedation well. ESTIMATED BLOOD LOSS: Approximately 2 mL. COMPLICATIONS: None. PLAN: It is okay to use the fistula for dialysis. It is okay to resume home diet medications. We will remove the suture at the access site prior to discharge. I discussed with the patient that some of her problems with flows may be related to needle positioning, and she agrees with this, saying that there are times where the nurses access her and everything flows very well for her entire treatment. Although she did have stenoses today, none of them were significant enough to cause flow limitations, so I believe some of the problem may just simply be due to how the needle slightly within her access. We will see her back on an as-needed basis. Nevertheless, after angioplasty today, we're hoping she will get better venous clearances. We appreciate the opportunity to participate in the care of this patient. AIDEN HALLMAN MD Dec 17, 2019 12:57
[2019-12-17 13:05] VITALS: BP 80/50
== END ==
LOC: M IRPRO 11:15
PROVIDERS: ATTEND Surgery Vascular Surgery
DX: T82.590A Other mechanical complication of surgically created arteriovenous fistula, initial encounter (principal); X58.XXXA Exposure to other specified factors, initial encounter; N18.6 End stage renal disease; Z99.2 Dependence on renal dialysis
CPT/HCPCS: 36902; 99152; 99153; C1725; C1769; C1894; J1644; J2250; J3010; Q9967

== ENCOUNTER → 2020-02-04 | Outpatient (CLI) | payer MEDICARE, MEDICAID ==
[~2020-02-04] MED LIST changes: -ISOVUE-300 61% 50ML VIAL As Ordered ONE; -LIDOCAINE 1% MDV 20ML VIAL As Ordered ONE; -MIDAZOLAM INJ 2MG/2ML VIAL (J2250 PER 1MG) As Ordered ONE; +PANT40TA29; -PANT40TA3; -fentaNYL 100 MCG/2 ML INJECTION (J3010) As Ordered ONE
--- NOTE | 2020-03-06 07:34 | REP ---
SESTAMIBI RADIONUCLIDE PARATHYROID SCINTIGRAPHY HISTORY: Benign neoplasm of the parathyroid. Patient has a history of parathyroidectomy in 2002, with transfer of a parathyroid gland to the soft tissues of the left forearm. TECHNIQUE: 27.5 mCi of Technetium-99m sestamibi is injected and 15 three hour delayed images of the neck and thorax are acquired. SPECT imaging could not be acquired due to patients size. A planar acquisition of the forearms was acquired with anterior and posterior images. FINDINGS: There was no abnormal soft tissue uptake in the soft tissues of the left forearm. Increased vascular uptake is seen on the right suggesting dialysis access grafts. 15-minute delayed images of the head, neck, and chest demonstrate uptake in the salivary glands. There is some uptake in the thyroid gland as well. At three hour delay, uptake shows no area of increased uptake to suggest parathyroid adenoma. Thyroid uptake has faded. IMPRESSION: Negative parathyroid nuclear scintigraphy. MTDD
== END ==
LOC: M RAD 09:26
PROVIDERS: ATTEND Internal Medicine Nephrology
DX: D35.1 Benign neoplasm of parathyroid gland (principal)
CPT/HCPCS: 78070; A9500

== ENCOUNTER → 2020-04-30 | Outpatient (REF) | payer MEDICARE, MEDICAID ==
[2020-04-30 13:01] LABS: BASO # 0.1 10^3/uL (0.0-0.2); BASO % 1.1 % (0.0-1.0); EOS # 0.7 10^3/uL (0.0-0.5); EOS % 8.9 % (0.0-3.0); HEMATOCRIT 36.6 % (36.0-47.0); HEMOGLOBIN 11.2 g/dl (12.0-15.5); LYMPH # 2.8 10^3/uL (1.5-5.0); LYMPH % 36.4 % (24.0-44.0); MEAN CORPUSCULAR HEMOGLOBIN 30.7 pg (27.0-33.0); MEAN CORPUSCULAR HGB CONC 30.6 g/dl (32.0-36.5); MEAN CORPUSCULAR VOLUME 100.3 fl (80.0-96.0); MONO # 0.9 10^3/uL (0.0-0.8); MONO % 11.6 % (0.0-5.0); NEUTROPHILS # 3.2 10^3/uL (1.5-8.5); NEUTROPHILS % 41.7 % (36.0-66.0); PLATELET COUNT, AUTOMATED 290 10^3/uL (150-450); RED BLOOD COUNT 3.65 10^6/uL (4.00-5.40); WHITE BLOOD COUNT 7.6 10^3/uL (4.0-10.0)
[2020-04-30 13:30] LABS: ALBUMIN 2.9 GM/DL (3.2-5.2); BILIRUBIN,TOTAL 0.3 MG/DL (0.2-1.0); CALCIUM LEVEL 9.1 MG/DL (8.5-10.1); CREATININE FOR GFR 6.17 MG/DL (0.55-1.30); FREE T4 0.99 NG/DL (0.76-1.46); GLOMERULAR FILTRATION RATE 7.9 (>58); POTASSIUM SERUM 4.3 MEQ/L (3.5-5.1); THYROID STIMULATING HORMONE 2.93 uIU/ML (0.358-3.740); TOTAL PROTEIN 6.5 GM/DL (6.4-8.2)
[2020-04-30 13:34] LABS: TOTAL 25(OH) VITAMIN D 14.9 NG/ML (30.0-100.0)
== END ==
LOC: M LAB REF 12:25
PROVIDERS: ATTEND Nurse Practitioner Family
DX: M54.5 Low back pain (principal); F41.8 Other specified anxiety disorders; I95.89 Other hypotension; Z13.9 Encounter for screening, unspecified; E78.5 Hyperlipidemia, unspecified; E66.9 Obesity, unspecified; Z78.9 Other specified health status; Z79.899 Other long term (current) drug therapy

== ENCOUNTER 2020-05-05 12:29 | Outpatient (CLI) | payer MEDICARE, MEDICAID ==
[~2020-05-05] VITALS: Ht 170.2 cm; Wt 137.4 kg
[2020-05-05] MEDS ORDERED: diphenhydrAMINE 50MG/ML VIAL (J1200) IV ONE (13:00)
[2020-05-05] MEDS ORDERED: NS 1,000 ML IV SCH (13:00)
[2020-05-05] MEDS ORDERED: diphenhydrAMINE 50MG/ML VIAL (J1200) IV PRN (13:00)
[2020-05-05] MEDS ORDERED: methylPREDNISolone 125MG 2ML VIAL IV PRN (13:00)
[2020-05-05] MEDS ORDERED: EPINEPHrine INJ 1 MG/ML 1ML AMP IM PRN (13:00)
[2020-05-05] MEDS ORDERED: FERRIC CARBOXYMALTOSE INJ 750 MG in NS 250 ML IV ONE (13:00)
[2020-05-05] MEDS ORDERED: ALBUTEROL SULFATE 2.5 MG/0.5 ML INH NEB SOLN INH PRN (13:00)
[2020-05-05 13:18] VITALS: BP 99/49
[2020-05-05 14:55] VITALS: BP 107/49
== END 2020-05-05 15:05 | disposition home or self-care (01) ==
LOC: M INFU 12:29
PROVIDERS: ATTEND Internal Medicine Nephrology
DX: D64.9 Anemia, unspecified (principal); N18.9 Chronic kidney disease, unspecified
CPT/HCPCS: 96365; 96375; J1200; J1439

== ENCOUNTER 2020-05-13 00:22 | Emergency (ER) | payer MEDICARE, MEDICAID ==
[~2020-05-13] VITALS: Ht 165.1 cm; Wt 140.4 kg
[~2020-05-13 00:22] MED LIST changes: -MELA3TAB63; +MELA3TAB70
--- NOTE | 2020-05-13 01:30 | REPVR ---
PROCEDURE INFORMATION: Exam: US Duplex Right Upper Extremity Veins, Limited Exam date and time: 05/13/2020 1:20 AM Age: 44 years old Clinical indication: Pain; Arm, upper and arm, lower; Right; Additional info: Swelling/pain TECHNIQUE: Imaging protocol: Real-time Duplex ultrasound of the Right Upper Extremity with 2-D baker scale, color Doppler flow and spectral waveform analysis with image documentation. Limited exam focused on the right upper extremity veins. COMPARISON: US VEIN MAPPING PRE AVF 04/04/2019 8:55 AM FINDINGS: Right deep veins: There is an occlusive deep vein thrombosis in the right axillary vein. The imaged portions of the right internal jugular vein and right subclavian vein are patent and demonstrate normal color Doppler flow and spectral waveforms. Right superficial veins: There are occlusive superficial vein thromboses in the right basilic vein and right cephalic vein. IMPRESSION: 1. Occlusive deep vein thrombosis in the right axillary vein. 2. Occlusive superficial vein thromboses in the right basilic vein and right cephalic vein. Electronically signed by: Lexx Holman On 05/13/2020 01:30:35 AM
[2020-05-13] MEDS ORDERED: APIXABAN 5 MG TAB (ELIQUIS) PO ONE (02:00)
[2020-05-13] MEDS ORDERED: ELIQ2.5T PO (02:03)
[2020-05-13 02:11] VITALS: BP 142/69
== END 2020-05-13 02:13 | disposition home or self-care (01) ==
LOC: M ED 00:22
DX: I82.A11 Acute embolism and thrombosis of right axillary vein (principal); I82.611 Acute embolism and thrombosis of superficial veins of right upper extremity; R51.9 Headache, unspecified; Z86.718 Personal history of other venous thrombosis and embolism; E03.9 Hypothyroidism, unspecified; Z90.5 Acquired absence of kidney; Z88.1 Allergy status to other antibiotic agents; Z88.8 Allergy status to other drugs, medicaments and biological substances; Z91.048 Other nonmedicinal substance allergy status; Z79.899 Other long term (current) drug therapy

== ENCOUNTER 2020-05-21 12:42 | Outpatient (CLI) | payer MEDICARE, MEDICAID ==
[~2020-05-21] VITALS: Ht 170.2 cm; Wt 137.4 kg
[~2020-05-21 12:42] MED LIST changes: +ALBUTEROL SULFATE 2.5 MG/0.5 ML INH NEB SOLN INH PRN; +ELIQ2.5T PO; +EPINEPHrine INJ 1 MG/ML 1ML AMP IM PRN; +FERRIC CARBOXYMALTOSE INJ 750 MG in NS 250 ML IV ONE; +NS 1,000 ML IV SCH; +diphenhydrAMINE 50MG/ML VIAL (J1200) IV ONE; +diphenhydrAMINE 50MG/ML VIAL (J1200) IV PRN; +methylPREDNISolone 125MG 2ML VIAL IV PRN
[2020-05-21 12:55] VITALS: BP 131/73
[2020-05-21] MEDS ORDERED: FERRIC CARBOXYMALTOSE INJ 750 MG in NS 250 ML IV ONE (13:00)
[2020-05-21] MEDS ORDERED: NS 1,000 ML IV SCH (13:00)
[2020-05-21] MEDS ORDERED: diphenhydrAMINE 50MG/ML VIAL (J1200) IV ONE (13:00)
[2020-05-21 14:50] VITALS: BP 97/40
[2020-05-21 15:15] VITALS: BP 130/60
== END 2020-05-21 15:15 | disposition home or self-care (01) ==
LOC: M INFU 12:42
PROVIDERS: ATTEND Internal Medicine Nephrology
DX: N18.9 Chronic kidney disease, unspecified (principal); D63.1 Anemia in chronic kidney disease
CPT/HCPCS: 96365; 96375; J1200; J1439

== ENCOUNTER 2020-08-12 15:10 | Emergency (ER) | payer MEDICARE, MEDICAID ==
[~2020-08-12] VITALS: Ht 165.1 cm; Wt 142.1 kg
[~2020-08-12 15:10] MED LIST changes: -ALBUTEROL SULFATE 2.5 MG/0.5 ML INH NEB SOLN INH PRN; -EPINEPHrine INJ 1 MG/ML 1ML AMP IM PRN; -FERRIC CARBOXYMALTOSE INJ 750 MG in NS 250 ML IV ONE; -NS 1,000 ML IV SCH; -diphenhydrAMINE 50MG/ML VIAL (J1200) IV ONE; -diphenhydrAMINE 50MG/ML VIAL (J1200) IV PRN; -methylPREDNISolone 125MG 2ML VIAL IV PRN
[2020-08-12 15:11] VITALS: BP 116/67
[2020-08-12] MEDS ORDERED: DIAL800T3 (15:20)
[2020-08-12] MEDS ORDERED: ORIL150T (15:20)
[2020-08-12] MEDS ORDERED: fentaNYL 100 MCG/2 ML INJECTION (J3010) IV ONE ×2 (16:45→18:15)
[2020-08-12] MEDS ORDERED: ONDANSETRON 4MG/2ML VIAL IV ONE (16:45)
[2020-08-12 17:19] LABS: BASO # 0.1 10^3/uL (0.0-0.2); BASO % 0.6 % (0.0-1.0); EOS # 0.9 10^3/uL (0.0-0.5); HEMATOCRIT 33.4 % (36.0-47.0); HEMOGLOBIN 10.4 g/dl (12.0-15.5); LYMPH # 3.4 10^3/uL (1.5-5.0); LYMPH % 30.8 % (24.0-44.0); MEAN CORPUSCULAR HEMOGLOBIN 30.8 pg (27.0-33.0); MEAN CORPUSCULAR HGB CONC 31.1 g/dl (32.0-36.5); MEAN CORPUSCULAR VOLUME 98.8 fl (80.0-96.0); MONO # 1.3 10^3/uL (0.0-0.8); MONO % 11.5 % (2.0-8.0); NEUTROPHILS # 5.4 10^3/uL (1.5-8.5); NEUTROPHILS % 48.6 % (36.0-66.0); PLATELET COUNT, AUTOMATED 315 10^3/uL (150-450); RED BLOOD COUNT 3.38 10^6/uL (4.00-5.40)
[2020-08-12 17:41] LABS: RSV AMPLIFICATION NEGATIVE (NEGATIVE)
[2020-08-12 17:44] LABS: ALBUMIN 2.8 GM/DL (3.2-5.2); ALT/SGPT 9 U/L (12-78); BILIRUBIN,DIRECT < 0.1 MG/DL (0.0-0.2); BILIRUBIN,TOTAL 0.2 MG/DL (0.2-1.0); BLOOD UREA NITROGEN 35 MG/DL (7-18); CALCIUM LEVEL 8.3 MG/DL (8.5-10.1); CARBON DIOXIDE LEVEL 29 MEQ/L (21-32); CHLORIDE LEVEL 99 MEQ/L (98-107); GLOMERULAR FILTRATION RATE 4.5 (>58); GLUCOSE, FASTING 72 MG/DL (70-100); LIPASE 66 U/L (73-393); POTASSIUM SERUM 3.9 MEQ/L (3.5-5.1); SODIUM LEVEL 138 MEQ/L (136-145); TOTAL PROTEIN 5.9 GM/DL (6.4-8.2)
[2020-08-12] MEDS ORDERED: ISOVUE-370 76% 100ML VIAL As Ordered ONE (17:50)
--- NOTE | 2020-08-12 18:35 | REPVR ---
PROCEDURE INFORMATION: Exam: CT Abdomen And Pelvis With Contrast Exam date and time: 08/12/2020 6:16 PM Age: 44 years old Clinical indication: Abdominal pain; Localized; Left; Prior surgery; Surgery date: 6+ months; Additional info: Luq/llq pain, mult abd surgeries TECHNIQUE: Imaging protocol: Computed tomography of the abdomen and pelvis with contrast. Radiation optimization: All CT scans at this facility use at least one of these dose optimization techniques: automated exposure control; mA and/or kV adjustment per patient size (includes targeted exams where dose is matched to clinical indication); or iterative reconstruction. Contrast material: ISOVUE 370; Contrast volume: 100 ml; Contrast route: INTRAVENOUS (IV); COMPARISON: CT ABD PELVIS W/O CONTRAST 12/12/2019 6:00 PM FINDINGS: Mediastinal space: A small hiatal hernia is present. Liver: Normal. No mass. Gallbladder and bile ducts: There has been a cholecystectomy. Pancreas: Normal. No ductal dilation. Spleen: Status post splenectomy. Adrenal glands: Normal. No mass. Kidneys and ureters: Neither kidney identified. Stomach and bowel: This patient is status post gastric bypass surgery. Appendix: No evidence of appendicitis. Intraperitoneal space: Unremarkable. No free air. No significant fluid collection. Vasculature: Unremarkable. No abdominal aortic aneurysm. Lymph nodes: Unremarkable. No enlarged lymph nodes. Urinary bladder: Unremarkable as visualized. Reproductive: Unremarkable as visualized. Bones/joints: Moderate central spinal stenosis L4-L5. Bulging annulus L5-S1. Slight anterolisthesis of L4 on L5. Soft tissues: Redemonstration of small nodular densities demonstrated in the left anterior abdominal wall measuring up to 1.2 cm. Redemonstration of a right and left paracentral anterior abdominal wall hernias containing fat. Clinical evaluation to exclude incarceration suggested. IMPRESSION: 1. There has been a cholecystectomy. 2. This patient is status post gastric bypass surgery. 3. A small hiatal hernia is present. 4. Status post splenectomy. 5. Neither kidney identified. 6. Redemonstration of a right and left paracentral anterior abdominal wall hernias containing fat. Clinical evaluation to exclude incarceration suggested. Electronically signed by: Gurvinder Carranza On 08/12/2020 18:35:46 PM
[2020-08-12] MEDS ORDERED: MORPHINE 4 MG/ML 1ML VIAL/SYRINGE (J2270) IV ONE (19:05)
== END 2020-08-12 19:44 | disposition home or self-care (01) ==
LOC: M ED 15:10
DX: K43.9 Ventral hernia without obstruction or gangrene (principal); N18.9 Chronic kidney disease, unspecified; Z88.8 Allergy status to other drugs, medicaments and biological substances; Z91.048 Other nonmedicinal substance allergy status; Z90.81 Acquired absence of spleen; Z99.2 Dependence on renal dialysis; Z98.84 Bariatric surgery status
CPT/HCPCS: 74177; 80047; 80053; 83605; 83690; 84702; 85025; 87631; 96374; 96375; 99282; J2270; J2405; J3010; Q9967

== ENCOUNTER 2020-09-11 21:36 | Emergency (ER) | payer MEDICARE, MEDICAID ==
[~2020-09-11] VITALS: Ht 167.6 cm; Wt 140.9 kg
[~2020-09-11 21:36] MED LIST changes: +DIAL800T3; +ORIL150T
[2020-09-11 22:16] LABS: BASO # 0.1 10^3/uL (0.0-0.2); BASO % 0.8 % (0.0-1.0); EOS # 0.7 10^3/uL (0.0-0.5); EOS % 7.7 % (0.0-3.0); HEMATOCRIT 34.2 % (36.0-47.0); HEMOGLOBIN 10.8 g/dl (12.0-15.5); LYMPH # 3.3 10^3/uL (1.5-5.0); LYMPH % 34.4 % (24.0-44.0); MEAN CORPUSCULAR HEMOGLOBIN 31.1 pg (27.0-33.0); MEAN CORPUSCULAR HGB CONC 31.6 g/dl (32.0-36.5); MEAN CORPUSCULAR VOLUME 98.6 fl (80.0-96.0); MONO # 0.7 10^3/uL (0.0-0.8); MONO % 7.7 % (2.0-8.0); NEUTROPHILS # 4.7 10^3/uL (1.5-8.5); PLATELET COUNT, AUTOMATED 362 10^3/uL (150-450); RED BLOOD COUNT 3.47 10^6/uL (4.00-5.40); WHITE BLOOD COUNT 9.6 10^3/uL (4.0-10.0)
[2020-09-11] MEDS ORDERED: NS 500 ML IV ONE (23:10)
--- NOTE | 2020-09-11 23:24 | REPVR ---
PROCEDURE INFORMATION: Exam: XR Chest Exam date and time: 09/11/2020 10:58 PM Age: 44 years old Clinical indication: Chest pain; Type not specified; Additional info: Near syncope TECHNIQUE: Imaging protocol: XR of the chest Views: 2 views. COMPARISON: CR PORTABLE CHEST X-RAY 12/12/2019 5:39 PM FINDINGS: Lungs: Unremarkable. No consolidation. Pleural spaces: Unremarkable. No pleural effusion. No pneumothorax. Heart/Mediastinum: Unremarkable. No cardiomegaly. Bones/joints: Status post anterior cervical fusion. Soft tissues: There are generous overlying soft tissues. IMPRESSION: Negative chest without change from 12/12/2019. Electronically signed by: Harry Méndez On 09/11/2020 23:24:38 PM
[2020-09-11 23:52] LABS: ALBUMIN 2.8 GM/DL (3.2-5.2); ALT/SGPT 12 U/L (12-78); BILIRUBIN,DIRECT 0.1 MG/DL (0.0-0.2); BILIRUBIN,TOTAL 0.5 MG/DL (0.2-1.0); BLOOD UREA NITROGEN 11 MG/DL (7-18); CALCIUM LEVEL 8.4 MG/DL (8.5-10.1); CARBON DIOXIDE LEVEL 34 MEQ/L (21-32); CHLORIDE LEVEL 99 MEQ/L (98-107); CK-MB VALUE MASS < 1.0 NG/ML (<3.6); CPK CREATINE PHOSPHOKINASE 57 U/L (26-192); FREE T4 1.07 NG/DL (0.76-1.46); GLOMERULAR FILTRATION RATE 16.3 (>58); GLUCOSE, FASTING 72 MG/DL (70-100); MB/CK RELATIVE INDEX 1.75 (< OR =4); POTASSIUM SERUM 3.5 MEQ/L (3.5-5.1); SODIUM LEVEL 138 MEQ/L (136-145); TOTAL PROTEIN 6.9 GM/DL (6.4-8.2); TROPONIN I < 0.02 NG/ML (< 0.10)
[2020-09-12 00:13] VITALS: BP 110/66
--- NOTE | 2020-09-12 06:29 | ECGEPIP ---
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
== END 2020-09-12 00:36 | disposition home or self-care (01) ==
LOC: M ED 21:36
DX: R55 Syncope and collapse (principal); N18.6 End stage renal disease; D64.9 Anemia, unspecified; Z99.2 Dependence on renal dialysis; Z88.8 Allergy status to other drugs, medicaments and biological substances

== ENCOUNTER → 2020-09-15 | Outpatient (CLI) | payer MEDICARE, MEDICAID ==
[~2020-09-15] MED LIST changes: +ISOVUE-300 61% 50ML VIAL As Ordered ONE; +LIDOCAINE 1% MDV 20ML VIAL As Ordered ONE; +MIDAZOLAM INJ 2MG/2ML VIAL (J2250 PER 1MG) As Ordered ONE; +fentaNYL 100 MCG/2 ML INJECTION (J3010) As Ordered ONE
--- NOTE | 2020-09-15 14:46 | ROOPDOC ---
[facility] Report Of Operation Report of Operation DATE OF PROCEDURE: 09/15/20 PREPROCEDURE DIAGNOSES: End-stage renal disease with difficulty cannulating left brachial basilic AV fistula POSTPROCEDURE DIAGNOSES: Same PROCEDURE: 1. Ultrasound-guided access left basilic vein 2. Left upper extremity fistulogram and central venogram 3. Angioplasty left basilic vein and subclavian vein [place] by 40 [place] balloon 4. Completion venogram left upper extremity SURGEON: Angélica Hallman MD ANESTHESIA: Local anesthesia for cc lidocaine. Moderate intravenous conscious sedation was administered by Dr. Hallman. The patient was independently monitored by a registered nurse assigned to the Department of radiology using automated blood pressure, EKG, and pulse oximetry. The detailed sedation record is permanently stored in the hospital information system. The following is a brief sedation record: Start time 14:16, stop time 14:31, Versed 0.5 mg IV, fentanyl 25 g IV. INDICATION FOR PROCEDURE: This is a very pleasant 44-year-old patient with end- stage renal disease currently dialyzing with a left brachial basilic AV fistula. She's had increasing trouble with the venous access cannulation of her fistula, with infiltrations. She's also had increased pulsatility and venous bleeding after dialysis. Risks benefits and alternatives to a left upper extremity fistulogram potential intervention were explained to the patient she is agreeable to proceed. Informed consent was obtained. INTERPRETATION: 1. The AV anastomosis was examined with ultrasound and noted to be widely patent. There is also widely patent inflow into the fistula from this AV anastomosis with no signs of stenosis. 2. The basilic vein is aneurysmal and areas of frequent access, no stenoses noted. There is some tortuosity where the basilic vein returns to its normal anatomic location and joints the axillary vein. Does not appear to be significantly stenotic, but some flow limitation is noted. The axillary vein is widely patent with excellent flow into the subclavian vein which has a mild stenosis at the thoracic outlet, then is otherwise widely patent with excellent flow through the innominate vein back to the heart. No central stenosis noted. 3. After angioplasty of the proximal basilic vein with a 12 x 40 [place] balloon, there is widely patent inflow, no flow limitation, no stenoses noted, and no extravasation. The thrill in the fistula improved after this angioplasty. 4. After angioplasty of the left subclavian vein at the thoracic outlet, there is widely patent flow with no significant residual stenosis, no embolization or extravasation noted. There is an excellent thrill and the fistula. REPORT OF OPERATION: The patient was brought to the angiographic suite in stable condition. Her left upper extremity was prepped and draped in a sterile fashion. A timeout was performed. Local anesthesia was administered to the skin and subcutaneous tissue over the basilic vein. Ultrasound was used to examine the AV anastomosis, please see interpretation above. We then used ultrasound to gain access to the vein with a microneedle. A wire was passed through this access and a 4 [place] sheath was placed and flushed with saline. A fistulogram and central venogram were performed, please see interpretation above. Sedation was administered without complication. A Glidewire was advanced into the central system under fluoroscopic guidance and the sheath was exchanged for a 7 [place] sheath. A 12 x 40 [place] balloon was used angioplasty first the subclavian vein at the thoracic outlet for three-minute inflations, then the basilic vein near its juncture with the axillary vein for three-minute inflations. Following this, both are widely patent, there is improved thrill in the fistula, no extravasation noted. We then anesthetize additional local anesthesia around the sheath site and a dtgzsu-ji-dkglm Prolene suture was placed at the sheath exit site and secured as the sheath was removed. Good hemostasis was noted and sterile dressings were applied. We utilized ultrasound to venancio the vein on the skin. A Tegaderm was placed to prevent the nguyen from being washed off. 4 hopeful this will make the venous access a bit easier for the dialysis nurses. The patient was then taken to recovery in stable condition. She tolerated the procedure and the sedation well. ESTIMATED BLOOD LOSS: Approximately 5 mL. COMPLICATIONS: None. PLAN: It is okay to use the AV fistula for dialysis. It is okay to resume home diet and medications. We appreciate the opportunity to participate in the care of this patient. ANGÉLICA HALLMAN MD Sep 15, 2020 14:46
[2020-09-15 15:15] VITALS: BP 114/57
== END ==
LOC: M IRPRO 13:21
PROVIDERS: ATTEND Surgery Vascular Surgery
DX: T82.590A Other mechanical complication of surgically created arteriovenous fistula, initial encounter (principal); N18.6 End stage renal disease; X58.XXXA Exposure to other specified factors, initial encounter; Z79.899 Other long term (current) drug therapy; Z98.84 Bariatric surgery status; Z99.2 Dependence on renal dialysis
CPT/HCPCS: 36902; 99152; C1725; C1769; C1894; J1644; J2250; J3010; Q9967

== ENCOUNTER 2020-09-18 21:21 | Emergency (ER) | payer MEDICARE, MEDICAID ==
[~2020-09-18] VITALS: Ht 167.6 cm; Wt 140.0 kg
[~2020-09-18 21:21] MED LIST changes: -ISOVUE-300 61% 50ML VIAL As Ordered ONE; -LIDOCAINE 1% MDV 20ML VIAL As Ordered ONE; -MIDAZOLAM INJ 2MG/2ML VIAL (J2250 PER 1MG) As Ordered ONE; -fentaNYL 100 MCG/2 ML INJECTION (J3010) As Ordered ONE
[2020-09-18 21:56] VITALS: BP 86/60
== END 2020-09-18 22:20 | disposition home or self-care (01) ==
LOC: M ED 21:21
DX: I95.9 Hypotension, unspecified (principal); N18.9 Chronic kidney disease, unspecified; Z99.2 Dependence on renal dialysis; Z90.5 Acquired absence of kidney; E78.5 Hyperlipidemia, unspecified; N80.9 Endometriosis, unspecified; Z88.8 Allergy status to other drugs, medicaments and biological substances; Z79.899 Other long term (current) drug therapy

== ENCOUNTER 2020-09-26 00:19 | Emergency (ER) | payer MEDICARE, MEDICAID ==
[~2020-09-26] VITALS: Ht 167.6 cm; Wt 143.9 kg
[2020-09-26 05:52] VITALS: BP_DIAS 60
[2020-09-26] MEDS ORDERED: ACETAMINOPHEN 500 MG TAB PO ONE (07:15)
[2020-09-26 07:41] LABS: BASO # 0.1 10^3/uL (0.0-0.2); BASO % 0.8 % (0.0-1.0); EOS % 9.8 % (0.0-3.0); HEMOGLOBIN 11.4 g/dl (12.0-15.5); MEAN CORPUSCULAR HEMOGLOBIN 32.6 pg (27.0-33.0); MEAN CORPUSCULAR HGB CONC 31.7 g/dl (32.0-36.5); MEAN CORPUSCULAR VOLUME 102.9 fl (80.0-96.0); MONO # 0.9 10^3/uL (0.0-0.8); NEUTROPHILS # 5.3 10^3/uL (1.5-8.5); PLATELET COUNT, AUTOMATED 368 10^3/uL (150-450); WHITE BLOOD COUNT 10.3 10^3/uL (4.0-10.0)
[2020-09-26 07:51] LABS: PROTHROMBIN TIME 13.4 SECONDS (12.5-14.3)
[2020-09-26 07:52] LABS: PARTIAL THROMBOPLASTIN TIME 27.4 SECONDS (24.2-38.5)
--- NOTE | 2020-09-26 08:16 | REP ---
INDICATION: R hip pain. COMPARISON: None. TECHNIQUE: AP and frogleg views of the right hip are provided. FINDINGS: Right proximal femur is intact. No right hip or hemipelvic fracture is appreciated. Right hip joint space is preserved. Periarticular soft tissues are unremarkable. There is some degenerative sclerosis about the SI joint. IMPRESSION: Mild sclerosis at the right SI joint. Otherwise negative right hip radiographs. No acute abnormality seen. <Electronically signed by Nicholas Pineda > 09/26/20 [id number]
[2020-09-26 08:17] LABS: CALCIUM LEVEL 8.6 MG/DL (8.5-10.1); CREATININE FOR GFR 10.2 MG/DL (0.55-1.30); GLOMERULAR FILTRATION RATE 4.4 (>58); POTASSIUM SERUM 4.6 MEQ/L (3.5-5.1)
--- NOTE | 2020-09-26 08:20 | REP ---
INDICATION: RLE calf pain, r/o DVT, h/o DVT. COMPARISON: None. TECHNIQUE: Right lower extremity duplex venous scanning. FINDINGS: The deep veins are anechoic and fully compressible from the groin to the popliteal fossa in the right lower extremity. Color flow imaging is homogeneous. Spectral Doppler interrogation demonstrates intact respiratory variation in flow and normal manual augmentation of flow. There is no evidence of deep vein thrombosis. There is mild diffuse soft tissue edema pattern. IMPRESSION: Negative right lower extremity duplex venous ultrasound. No evidence of deep vein thrombosis. <Electronically signed by Nicholas Pineda > 09/26/20 [id number]
[2020-09-26] MEDS ORDERED: MORPHINE SULFATE ORAL SOLN 10 MG/5 ML UD PO STA ×2 (09:12→10:27)
[2020-09-26] MEDS ORDERED: MORPHINE 4 MG/ML 1ML VIAL/SYRINGE (J2270) IV ONE (09:20)
--- NOTE | 2020-09-26 09:48 | REP ---
INDICATION: R lateral/distal calf pain. COMPARISON: Comparison is made with today's right lower extremity duplex venous ultrasound.. TECHNIQUE: Targeted soft tissue sonography right calf. Lateral calf pain. FINDINGS: Soft tissue sonography in the area of swelling in the lateral calf shows no abnormal fluid collection or mass. No focal abnormality. IMPRESSION: No evidence of mass or abscess. <Electronically signed by Nicholas Pineda > 09/26/20 0901
--- NOTE | 2020-09-26 10:10 | REP ---
INDICATION: R lateral LE pain. COMPARISON: None. TECHNIQUE: Four views of the right calf are presented. FINDINGS: Four views of the right tib fib demonstrate normal bones and joints. There is diffuse calf soft tissue edema in the subcutaneous fat layer. There is a dystrophic calcification in the anterior pretibial soft tissues of the distal calf on lateral radiograph. No other soft tissue calcification is seen.. No fracture or subluxation is seen. No opaque foreign body noted. IMPRESSION: No acute bony abnormality noted. Diffuse soft tissue swelling. Dystrophic soft tissue calcification.. <Electronically signed by Nicholas Pineda > 09/26/20 [id number]
[2020-09-26 11:24] VITALS: BP_SYST 108
== END 2020-09-26 11:36 | disposition home or self-care (01) ==
LOC: M ED 00:19
DX: S76.011A Strain of muscle, fascia and tendon of right hip, initial encounter (principal); S86.211A Strain of muscle(s) and tendon(s) of anterior muscle group at lower leg level, right leg, initial encounter; Y92.9 Unspecified place or not applicable; Y93.9 Activity, unspecified; Y99.9 Unspecified external cause status; M46.98 Unspecified inflammatory spondylopathy, sacral and sacrococcygeal region; E03.9 Hypothyroidism, unspecified; F43.10 Post-traumatic stress disorder, unspecified; N18.6 End stage renal disease; Z99.2 Dependence on renal dialysis; Z88.8 Allergy status to other drugs, medicaments and biological substances; Z91.048 Other nonmedicinal substance allergy status

== ENCOUNTER → 2020-09-29 | Outpatient (REF) | payer MEDICARE, MEDICAID ==
[2020-09-29 19:01] LABS: BASO # 0.1 10^3/uL (0.0-0.2); BASO % 0.8 % (0.0-1.0); EOS # 0.1 10^3/uL (0.0-0.5); EOS % 1.4 % (0.0-3.0); HEMATOCRIT 36.2 % (36.0-47.0); HEMOGLOBIN 11.4 g/dl (12.0-15.5); LYMPH # 2.6 10^3/uL (1.5-5.0); LYMPH % 30.4 % (24.0-44.0); MEAN CORPUSCULAR HEMOGLOBIN 32.2 pg (27.0-33.0); MEAN CORPUSCULAR HGB CONC 31.5 g/dl (32.0-36.5); MEAN CORPUSCULAR VOLUME 102.3 fl (80.0-96.0); MONO # 0.8 10^3/uL (0.0-0.8); MONO % 9.1 % (2.0-8.0); NEUTROPHILS # 4.9 10^3/uL (1.5-8.5); NEUTROPHILS % 57.9 % (36.0-66.0); PLATELET COUNT, AUTOMATED 415 10^3/uL (150-450); RED BLOOD COUNT 3.54 10^6/uL (4.00-5.40); WHITE BLOOD COUNT 8.5 10^3/uL (4.0-10.0)
[2020-09-29 20:22] LABS: BILIRUBIN,TOTAL 0.3 MG/DL (0.2-1.0); CALCIUM LEVEL 9.2 MG/DL (8.5-10.1); CHOLESTEROL RISK RATIO 5.702 (<5); CREATININE FOR GFR 8.79 MG/DL (0.55-1.30); GLOMERULAR FILTRATION RATE 5.3 (>58); POTASSIUM SERUM 4.7 MEQ/L (3.5-5.1); TOTAL PROTEIN 6.8 GM/DL (6.4-8.2)
[2020-09-29 20:24] LABS: TOTAL 25(OH) VITAMIN D 11.8 NG/ML (30.0-100.0)
== END ==
LOC: M LAB REF 17:20
PROVIDERS: ATTEND Nurse Practitioner Family
DX: E78.2 Mixed hyperlipidemia (principal); E66.9 Obesity, unspecified; E55.9 Vitamin D deficiency, unspecified; N18.6 End stage renal disease

== ENCOUNTER 2020-10-28 20:37 | Emergency (ER) | payer MEDICARE, MEDICAID ==
[~2020-10-28] VITALS: Ht 167.6 cm; Wt 143.2 kg
[2020-10-28 22:27] LABS: BASO # 0.1 10^3/uL (0.0-0.2); BASO % 0.5 % (0.0-1.0); EOS # 0.3 10^3/uL (0.0-0.5); EOS % 2.8 % (0.0-3.0); HEMATOCRIT 34.6 % (36.0-47.0); HEMOGLOBIN 11.6 g/dl (12.0-15.5); LYMPH # 2.7 10^3/uL (1.5-5.0); LYMPH % 23.2 % (24.0-44.0); MEAN CORPUSCULAR HEMOGLOBIN 33.2 pg (27.0-33.0); MEAN CORPUSCULAR HGB CONC 33.5 g/dl (32.0-36.5); MEAN CORPUSCULAR VOLUME 99.1 fl (80.0-96.0); MONO # 1.5 10^3/uL (0.0-0.8); NEUTROPHILS % 60.1 % (36.0-66.0); PLATELET COUNT, AUTOMATED 430 10^3/uL (150-450); RED BLOOD COUNT 3.49 10^6/uL (4.00-5.40)
[2020-10-28 22:54] LABS: WHITE BLOOD COUNT 11.6 10^3/uL (4.0-10.0)
[2020-10-28 23:09] LABS: ALBUMIN 2.5 GM/DL (3.2-5.2); ALT/SGPT 9 U/L (12-78); BILIRUBIN,DIRECT < 0.1 MG/DL (0.0-0.2); BILIRUBIN,TOTAL 0.5 MG/DL (0.2-1.0); BLOOD UREA NITROGEN 34 MG/DL (7-18); CALCIUM LEVEL 8.1 MG/DL (8.5-10.1); CARBON DIOXIDE LEVEL 31 MEQ/L (21-32); CHLORIDE LEVEL 99 MEQ/L (98-107); CK-MB VALUE MASS < 1.0 NG/ML (<3.6); CPK CREATINE PHOSPHOKINASE 91 U/L (26-192); GLOMERULAR FILTRATION RATE 7.1 (>58); GLUCOSE, FASTING 69 MG/DL (70-100); LIPASE 50 U/L (73-393); POTASSIUM SERUM 4.4 MEQ/L (3.5-5.1); SODIUM LEVEL 137 MEQ/L (136-145); TOTAL PROTEIN 6.3 GM/DL (6.4-8.2); TROPONIN I < 0.02 NG/ML (< 0.10)
[2020-10-29 00:17] VITALS: BP 82/50
--- NOTE | 2020-10-29 05:36 | ECGEPIP ---
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
== END 2020-10-29 00:25 | disposition home or self-care (01) ==
LOC: M ED 20:37
DX: I95.9 Hypotension, unspecified (principal); N18.6 End stage renal disease; Z99.2 Dependence on renal dialysis; Z88.8 Allergy status to other drugs, medicaments and biological substances; Z79.899 Other long term (current) drug therapy

== ENCOUNTER 2020-11-09 20:48 | Emergency (ER) | payer MEDICARE, MEDICAID ==
[~2020-11-09] VITALS: Ht 167.6 cm; Wt 140.0 kg
[2020-11-09 21:54] LABS: BASO # 0.1 10^3/uL (0.0-0.2); BASO % 0.8 % (0.0-1.0); EOS # 0.5 10^3/uL (0.0-0.5); EOS % 4.6 % (0.0-3.0); HEMATOCRIT 36.8 % (36.0-47.0); HEMOGLOBIN 12.1 g/dl (12.0-15.5); LYMPH % 26.2 % (24.0-44.0); MEAN CORPUSCULAR HEMOGLOBIN 32.4 pg (27.0-33.0); MEAN CORPUSCULAR HGB CONC 32.9 g/dl (32.0-36.5); MEAN CORPUSCULAR VOLUME 98.7 fl (80.0-96.0); MONO % 8.3 % (2.0-8.0); NEUTROPHILS # 6.8 10^3/uL (1.5-8.5); NEUTROPHILS % 59.7 % (36.0-66.0); PLATELET COUNT, AUTOMATED 419 10^3/uL (150-450); RED BLOOD COUNT 3.73 10^6/uL (4.00-5.40); WHITE BLOOD COUNT 11.4 10^3/uL (4.0-10.0)
[2020-11-09 22:17] LABS: HCG, SERUM QUALITATIVE NEGATIVE (NEGATIVE)
[2020-11-09 22:29] LABS: ALBUMIN 2.7 GM/DL (3.2-5.2); ALT/SGPT 8 U/L (12-78); BILIRUBIN,DIRECT < 0.1 MG/DL (0.0-0.2); BILIRUBIN,TOTAL 0.3 MG/DL (0.2-1.0); BLOOD UREA NITROGEN 23 MG/DL (7-18); CALCIUM LEVEL 8.8 MG/DL (8.5-10.1); CARBON DIOXIDE LEVEL 31 MEQ/L (21-32); CHLORIDE LEVEL 97 MEQ/L (98-107); CK-MB VALUE MASS < 1.0 NG/ML (<3.6); CPK CREATINE PHOSPHOKINASE 55 U/L (26-192); CREATININE FOR GFR 5.03 MG/DL (0.55-1.30); GLUCOSE, FASTING 59 MG/DL (70-100); MB/CK RELATIVE INDEX 1.82 (< OR =4); POTASSIUM SERUM 3.9 MEQ/L (3.5-5.1); SODIUM LEVEL 138 MEQ/L (136-145); TOTAL PROTEIN 6.8 GM/DL (6.4-8.2); TROPONIN I < 0.02 NG/ML (< 0.10)
[2020-11-09 22:33] LABS: RSV AMPLIFICATION NEGATIVE (NEGATIVE)
[2020-11-09] MEDS ORDERED: NS 500 ML IV ONE (22:50)
[2020-11-09] MEDS ORDERED: ACETAMINOPHEN *IV* 1,000 MG in IV 1 EA IV ONE (22:55)
--- NOTE | 2020-11-09 23:20 | REPVR ---
PROCEDURE INFORMATION: Exam: XR Chest Exam date and time: 11/09/2020 10:54 PM Age: 44 years old Clinical indication: Pain; Other: Not specified; Additional info: Chest pain TECHNIQUE: Imaging protocol: XR of the chest. Views: 1 view. COMPARISON: CR Chest, 2 view PA, Lat 09/11/2020 10:44 PM FINDINGS: Lungs: Degree of lung inflation is normal. No evidence of pulmonary edema. No focal consolidation or parenchymal lung mass. Pleural spaces: No pleural effusion or pneumothorax. Heart/Mediastinum: Cardiac silhouette appears normal. No adenopathy or hilar mass. Bones/joints: Osseous structures show no concerning abnormality. IMPRESSION: No acute or focal cardiopulmonary process. Electronically signed by: Franky Elias On 11/09/2020 23:20:45 PM
[2020-11-09 23:48] VITALS: BP 94/58
--- NOTE | 2020-11-11 20:30 | ECGEPIP ---
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
== END 2020-11-10 00:20 | disposition home or self-care (01) ==
LOC: M ED 20:48
DX: R07.89 Other chest pain (principal); N18.6 End stage renal disease; Z99.2 Dependence on renal dialysis; Z88.8 Allergy status to other drugs, medicaments and biological substances; Z79.899 Other long term (current) drug therapy
CPT/HCPCS: 71045; 80048; 80076; 82550; 82553; 84443; 84484; 84703; 85025; 87631; 93005; 93041; 94760; 96361; 96374; 99285; J0131

== ENCOUNTER → 2020-12-10 | Outpatient (CLI) | payer MEDICARE, MEDICAID ==
[~2020-12-10] MED LIST changes: +ERGO500029 IV; -VITA50005 IV
--- NOTE | 2020-12-10 15:06 | REP ---
INDICATION: PAIN COMPARISON: None. TECHNIQUE: AP, lateral, bilateral oblique views right wrist. FINDINGS: The carpal bones, surrounding osseous structures, soft tissues, and joint spaces are normal. There is no evidence for acute fracture or dislocation. No subcutaneous emphysema or radiodense foreign body. IMPRESSION: Normal wrist series. No acute fracture or dislocation. <Electronically signed by Leonel Ortiz > 12/10/20 1587
== END ==
LOC: M WUC 14:41
PROVIDERS: ATTEND Physician Assistant
DX: M25.531 Pain in right wrist (principal)

== ENCOUNTER → 2021-01-01 | Outpatient (CLI) | payer MEDICARE, MEDICAID ==
[~2021-01-01] MED LIST changes: +OMEP-218 PO; +RENV2TAB PO
== END ==
LOC: M LABSMTC 10:43
PROVIDERS: ATTEND Anesthesiology
DX: Z01.812 Encounter for preprocedural laboratory examination (principal); Z20.822 Contact with and (suspected) exposure to COVID-19

== ENCOUNTER 2021-01-06 10:10 | Day surgery (SDC) | payer MEDICARE, MEDICAID ==
[~2021-01-06] VITALS: Ht 167.6 cm; Wt 144.7 kg
[~2021-01-06 10:10] MED LIST changes: +NS 1,000 ML IV ONE
[2021-01-06] MEDS ORDERED: LIDOCAINE 2% 100MG/5ML SDV (FOR ANES.) As Ordered ONE (11:12)
[2021-01-06] MEDS ORDERED: propofoL 200 MG/20 ML VIAL As Ordered ONE (11:12)
[2021-01-06] MEDS ORDERED: fentaNYL 100 MCG/2 ML INJECTION (J3010) As Ordered ONE (11:12)
--- NOTE | 2021-01-06 11:37 | ROOR ---
Patient Name: Fatoumata Galindo Procedure Date: 01/06/2021 11:19 AM Date of : 1975 Age: 45 Room: [facility] Gender: Female Note Status: Finalized Procedure: Upper Endoscopy + Biopsies Indications: Epigastric abdominal pain, Heartburn, Diarrhea, Nausea with vomiting Providers: Dougie Mcintosh MD Referring MD: Madeline Leyva NP Requesting Provider: Medicines: Monitored Anesthesia Care Complications: No immediate complications. Procedure: Pre-Anesthesia Assessment: - The heart rate, respiratory rate, oxygen saturations, blood pressure, adequacy of pulmonary ventilation, and response to care were monitored throughout the procedure. The Endoscope was introduced through the mouth, and advanced to the second part of duodenum. The upper GI endoscopy was accomplished without difficulty. The patient tolerated the procedure well. Findings: The Z-line was irregular and was found 35 cm from the incisors. Mildly severe esophagitis with no bleeding was found 35 cm from the incisors. Biopsies were taken with a cold forceps for histology. Two superficial esophageal ulcers with no bleeding and no stigmata of recent bleeding were found 35 cm from the incisors. Biopsies were taken with a cold forceps for histology. No other significant abnormalities were identified in a careful examination of the stomach. Biopsies were taken with a cold forceps in the gastric antrum for Helicobacter pylori testing. The exam of the duodenum was otherwise normal. Biopsies for histology were taken with a cold forceps in the first portion of the duodenum for evaluation of celiac disease. The exam was otherwise without abnormality. A large hiatal hernia was present. Impression: - Z-line irregular, 35 cm from the incisors. - Mildly severe reflux esophagitis. Rule out Madison's esophagus. Biopsied. - Non-bleeding esophageal ulcers. Biopsied. - The examination was otherwise normal. - Large hiatal hernia. - Biopsies were taken with a cold forceps for Helicobacter pylori testing. - Biopsies were taken with a cold forceps for evaluation of celiac disease. - The examination was otherwise normal. Recommendation: - Patient has a contact number available for emergencies. The signs and symptoms of potential delayed complications were discussed with the patient. Return to normal activities tomorrow. Written discharge instructions were provided to the patient. - Resume previous diet. - Discharge patient to home. - Follow an antireflux regimen. - Continue present medications. - Await pathology results. - Telephone GI clinic for pathology results in 1 week. - Use Prilosec (omeprazole) 20 mg PO BID. - Use sucralfate tablets 1 gram PO BID. - The findings and recommendations were discussed with the patient's family. Procedure Code(s): --- Professional --- 80484, Esophagogastroduodenoscopy, flexible, transoral; with biopsy, single or multiple Diagnosis Code(s): --- Professional --- K22.8, Other specified diseases of esophagus K21.0, Gastro-esophageal reflux disease with esophagitis K22.10, Ulcer of esophagus without bleeding R10.13, Epigastric pain R12, Heartburn R19.7, Diarrhea, unspecified R11.2, Nausea with vomiting, unspecified CPT copyright 2019 [employer]. All rights reserved. The codes documented in this report are preliminary and upon future [employer] advisor review may be revised to meet current compliance requirements. Dougie Mcintosh MD Dougie Mcintosh MD 01/06/2021 11:37:31 AM Electronically signed by Dougie Mcintosh MD Number of Addenda: 0 Note Initiated On: 01/06/2021 11:19 AM Estimated Blood Loss: Estimated blood loss: none.
--- NOTE | 2021-01-06 11:59 | ROOR ---
Patient Name: Fatoumata Galindo Procedure Date: 01/06/2021 11:22 AM Date of : 1975 Age: 45 Room: [facility] Gender: Female Note Status: Finalized Procedure: Total Colonoscopy to Cecum + Bx. To r/o Microscopic Colitis Indications: Lower abdominal pain, Clinically significant diarrhea of unexplained origin Providers: Dougie Mcintosh MD Referring MD: Madeline Leyva NP Requesting Provider: Medicines: Monitored Anesthesia Care Complications: No immediate complications. Procedure: Pre-Anesthesia Assessment: - The heart rate, respiratory rate, oxygen saturations, blood pressure, adequacy of pulmonary ventilation, and response to care were monitored throughout the procedure. The Colonoscope was introduced through the anus and advanced to the cecum, identified by appendiceal orifice and ileocecal valve. The colonoscopy was performed without difficulty. The patient tolerated the procedure well. The quality of the bowel preparation was fair. Findings: The perianal and digital rectal examinations were normal. Non-bleeding internal hemorrhoids were found during retroflexion. The hemorrhoids were small and Grade I (internal hemorrhoids that do not prolapse). No other significant abnormalities were identified in a careful examination of the remainder of the colon. Biopsies for histology were taken with a cold forceps from the ascending colon, transverse colon and descending colon for evaluation of microscopic colitis. The exam was otherwise without abnormality. A large amount of stool was found in the entire colon. The exam was otherwise without abnormality. Impression: - Preparation of the colon was fair. - Non-bleeding internal hemorrhoids. - The examination was otherwise normal. - Stool in the entire examined colon. - The examination was otherwise normal. - Biopsies were taken with a cold forceps from the ascending colon, transverse colon and descending colon for evaluation of microscopic colitis. - The exam was otherwise normal to the cecum. Recommendation: - Patient has a contact number available for emergencies. The signs and symptoms of potential delayed complications were discussed with the patient. Return to normal activities tomorrow. Written discharge instructions were provided to the patient. - High fiber diet. - Discharge patient to home. - Continue present medications. - Await pathology results. - Telephone GI clinic for pathology results in 1 week. - Repeat colonoscopy in 10 years for screening purposes. - Return to referring physician. - The findings and recommendations were discussed with the patient's family. Procedure Code(s): --- Professional --- 53523, Colonoscopy, flexible; with biopsy, single or multiple Diagnosis Code(s): --- Professional --- K64.0, First degree hemorrhoids R10.30, Lower abdominal pain, unspecified R19.7, Diarrhea, unspecified CPT copyright 2019 [employer]. All rights reserved. The codes documented in this report are preliminary and upon smash piecer review may be revised to meet current compliance requirements. Dougie Mcintosh MD Dougie Mcintosh MD 01/06/2021 11:59:21 AM Electronically signed by Dougie Mcintosh MD Number of Addenda: 0 Note Initiated On: 01/06/2021 11:22 AM Estimated Blood Loss: Estimated blood loss: none.
[2021-01-06] MEDS ORDERED: PHENYLephrine 500MCG 5ML (100MCG/ML) SYRINGE As Ordered ONE (12:08)
[2021-01-06 12:40] VITALS: BP 97/52
== END 2021-01-06 15:42 | disposition home or self-care (01) ==
LOC: M OPP 10:10
PROVIDERS: ATTEND Internal Medicine Gastroenterology
DX: K64.0 First degree hemorrhoids (principal); R19.7 Diarrhea, unspecified; R10.30 Lower abdominal pain, unspecified; K22.8 Other specified diseases of esophagus; K21.00 Gastro-esophageal reflux disease with esophagitis, without bleeding; K22.10 Ulcer of esophagus without bleeding; K44.9 Diaphragmatic hernia without obstruction or gangrene; R12 Heartburn; R11.2 Nausea with vomiting, unspecified; D63.1 Anemia in chronic kidney disease; N18.6 End stage renal disease; Z79.899 Other long term (current) drug therapy; Z88.8 Allergy status to other drugs, medicaments and biological substances; Z91.048 Other nonmedicinal substance allergy status; Z86.718 Personal history of other venous thrombosis and embolism
CPT/HCPCS: 43239; 45380; 88305; J2370; J3010

== ENCOUNTER → 2021-02-25 | Outpatient (CLI) | payer MEDICARE, MEDICAID ==
[~2021-02-25] MED LIST changes: -NS 1,000 ML IV ONE
--- NOTE | 2021-02-25 15:47 | REP ---
INDICATION: MALFUNCTIONING AV FISTULA COMPARISON: None. TECHNIQUE: Real-time sonographic evaluation FINDINGS: Distal to the left brachial artery 2 cm proximal to the arteriovenous fistula the AP dimension is 6.6 mm and the peak systolic velocity is 287 centimeters/second. The peak systolic velocity of the brachial artery at the arteriovenous fistula anastomosis is 460 centimeters/second and has an AP dimension of 7 mm. The basilic vein just distal to the arteriovenous fistula measures 3.6 cm. Approximately 4 cm proximal to the arteriovenous fistula there is a 3.6 x 1.5 x 1.7 cm sized abnormal echogenic focus within a dilated portion of the AV fistula which is immobile during the exam. This is consistent with a thrombus. The basilic vein 2 mm proximal to the AV fistula measures 2.3 cm The basilic vein 7 cm proximal to the AV fistula measures 1.9 cm The basilic vein 2 cm proximal to the AV fistula measures 1.6 cm. The brachial artery 2 cm distal to the AV fistula measures 7.9 mm and has a maximal velocity of 2.59 centimeters/second. IMPRESSION: Findings as described above. There is evidence of a thrombus as described above. <Electronically signed by Philippe Olguin > 02/25/21 [id number]
== END ==
LOC: M RAD 12:32
PROVIDERS: ATTEND Surgery Vascular Surgery
DX: T82.590A Other mechanical complication of surgically created arteriovenous fistula, initial encounter (principal); Y84.8 Other medical procedures as the cause of abnormal reaction of the patient, or of later complication, without mention of misadventure at the time of the procedure

== ENCOUNTER → 2021-03-23 | Outpatient (CLI) | payer MEDICARE, MEDICAID ==
[~2021-03-23] MED LIST changes: +ISOVUE-300 61% 50ML VIAL As Ordered ONE; +LIDOCAINE 1% MDV 20ML VIAL As Ordered ONE; +MIDAZOLAM INJ 2MG/2ML VIAL (J2250 PER 1MG) As Ordered ONE; +NS 1,000 ML IV SCH; +ceFAZolin 2 GM/D5W 50 ML IV BAG (J0690 PER 500MG) As Ordered ONE; +ceFAZolin SOD 2 GM in IV 1 EA IV ONE; +fentaNYL 100 MCG/2 ML INJECTION (J3010) As Ordered ONE
[2021-03-23 13:35] LABS: HEMATOCRIT 35.8 % (36.0-47.0); HEMOGLOBIN 11.5 g/dl (12.0-15.5); MEAN CORPUSCULAR HGB CONC 32.1 g/dl (32.0-36.5); MEAN CORPUSCULAR VOLUME 96.5 fl (80.0-96.0); PLATELET COUNT, AUTOMATED 344 10^3/uL (150-450); RED BLOOD COUNT 3.71 10^6/uL (4.00-5.40); WHITE BLOOD COUNT 9.9 10^3/uL (4.0-10.0)
[2021-03-23 13:49] LABS: PROTHROMBIN TIME 13.7 SECONDS (12.7-14.5)
[2021-03-23 13:50] LABS: PARTIAL THROMBOPLASTIN TIME 27.3 SECONDS (25.9-37.0)
[2021-03-23 14:01] LABS: CALCIUM LEVEL 9.4 MG/DL (8.5-10.1); CREATININE FOR GFR 5.88 MG/DL (0.55-1.30); GLOMERULAR FILTRATION RATE 8.3 (>58); POTASSIUM SERUM 3.7 MEQ/L (3.5-5.1)
--- NOTE | 2021-03-23 14:23 | ROOPDOC ---
[facility] Report Of Operation Report of Operation DATE OF PROCEDURE: 03/23/21 PREPROCEDURE DIAGNOSES: End-stage renal disease, on hemodialysis through a left arm brachiobasilic AV fistula, malfunctioning of the AV fistula. POSTPROCEDURE DIAGNOSES: End-stage renal disease, on hemodialysis through a widely patent left arm brachiobasilic AV fistula, aneurysmal dilatation of the AV fistula PROCEDURE PERFORMED: Left arm fistulogram and central venogram-with ultrasound- guided access of the AV fistula SURGEON: Shruthi Lopez MD DIVER ASSISTANT: None ANESTHESIA: Local ESTIMATED BLOOD LOSS: Approximately 2 mL. Contrast: 24 mL [id number] COMPLICATIONS: None FINDINGS: Widely patent left arm AV fistula, without any significant stenosis. Patent central veins. There is a large aneurysmal dilatation, of the AV fistula, a few centimeters after the arterial anastomosis, without any evidence of thrombus. Patent arterial anastomosis. SPECIMENS REMOVED: None PROCEDURE NOTE: Indication for the procedure: The patient is a 45-year-old lady, who is being on hemodialysis, for more than 23 years. Left arm AV fistula has been used for hemodialysis for the past 11 years. She has aneurysmal degeneration, of the AV fistula, the peripheral aspect of the AV fistula, few centimeters from the arterial anastomosis. She had revision of the AV fistula aneurysm twice in the past. A few weeks ago the dialysis team had difficulty accessing the fistula, along with retrieval of clots. Duplex imaging of the fistula revealed a large nonocclusive thrombus, in the aneurysmal portion of the AV fistula. However since the past few treatments, no clots were being retrieved through the fistula, however her arterial line pressures were noted to be very high, during treatments. Hence the above-mentioned procedure is being performed She had a diagnostic fistulogram by Dr. Headley on 01/22/2019, which also did not reveal any significant stenosis. At the time the impression was that, she might require revision of the aneurysm, if the dialysis team has difficulty accessing the AV fistula. She also had another fistulogram on 09/15/2020, by Dr. Hallman, who however performed a balloon angioplasty with a 12 mm balloon, at the junction of the basilic vein and axillary vein, for tortuosity in the fistula, however without significant stenosis. Informed consent was obtained for the procedure, from the patient, after explaining risks and complications of the procedure, which include but not limited to bleeding, infection, failure to treat, ischemic complications to the arm, injury to the venous and arterial structures etc. DESCRIPTION OF PROCEDURE: The patient was currently identified and placed supine on the angiogram table. The left arm was cleaned and draped in a sterile fashion. A timeout was performed. After administering local anesthesia, under ultrasound guidance, the left arm AV fistula was accessed, near the arterial anastomosis, with the 21-gauge micropuncture needle, and exchanged to 5 [place]an micro sheath. The sheath was then exchanged to a 6 [place] sheath. Fistulogram was performed, through the sheath. This revealed widely patent fistula, with no significant stenosis. There was no thrombus noted in the aneurysmal portion of the AV fistula. The sheath was removed, and the sheath access site was secured with a pursestring suture. The patient tolerated the procedure well. She was transferred to the recovery room in a hemodynamically stable condition. Plan: Consider revision of the aneurysmal portion of the AV fistula, and if she continues to have problems with the fistula during hemodialysis Shruthi Lopez MD Mar 23, 2021 14:23
[2021-03-23 14:50] VITALS: BP 145/63
== END ==
LOC: M IRPRO 11:30
PROVIDERS: ATTEND Surgery Vascular Surgery
DX: T82.590A Other mechanical complication of surgically created arteriovenous fistula, initial encounter (principal); N18.6 End stage renal disease; I72.1 Aneurysm of artery of upper extremity; E66.01 Morbid (severe) obesity due to excess calories; Z68.43 Body mass index [BMI] 50.0-59.9, adult; Z88.8 Allergy status to other drugs, medicaments and biological substances; Z99.2 Dependence on renal dialysis
CPT/HCPCS: 36901; 80048; 85027; 85610; 85730; 86850; 86900; 86901; C1769; C1894; J0690; J2250; J3010; Q9967

== ENCOUNTER → 2021-06-02 | Outpatient (CLI) | payer MEDICARE, MEDICAID ==
[~2021-06-02] MED LIST changes: +ERGO500029; -ERGO500029 IV; -ISOVUE-300 61% 50ML VIAL As Ordered ONE; -LIDOCAINE 1% MDV 20ML VIAL As Ordered ONE; -MIDAZOLAM INJ 2MG/2ML VIAL (J2250 PER 1MG) As Ordered ONE; -NS 1,000 ML IV SCH; +OMEP-173 PO; -OMEP-218 PO; -ceFAZolin 2 GM/D5W 50 ML IV BAG (J0690 PER 500MG) As Ordered ONE; -ceFAZolin SOD 2 GM in IV 1 EA IV ONE; -fentaNYL 100 MCG/2 ML INJECTION (J3010) As Ordered ONE
== END ==
LOC: M WUC 12:57
PROVIDERS: ATTEND Physician Assistant
DX: M25.562 Pain in left knee (principal)

== ENCOUNTER 2021-06-23 13:10 | Emergency (ER) | payer MEDICARE, MEDICAID ==
[~2021-06-23] VITALS: Ht 167.6 cm; Wt 138.6 kg
[~2021-06-23 13:10] MED LIST changes: -OMEP-173 PO; +OMEP-218 PO
[2021-06-23 18:33] VITALS: BP 129/61
== END 2021-06-23 19:09 | disposition home or self-care (01) ==
LOC: M ED 13:10
DX: S89.92XA Unspecified injury of left lower leg, initial encounter (principal); W00.0XXA Fall on same level due to ice and snow, initial encounter; Y92.410 Unspecified street and highway as the place of occurrence of the external cause; Y93.9 Activity, unspecified; Y99.9 Unspecified external cause status; I12.9 Hypertensive chronic kidney disease with stage 1 through stage 4 chronic kidney disease, or unspecified chronic kidney disease; E78.5 Hyperlipidemia, unspecified; E03.9 Hypothyroidism, unspecified; N18.9 Chronic kidney disease, unspecified; Z99.2 Dependence on renal dialysis; F41.9 Anxiety disorder, unspecified; F32.9 Major depressive disorder, single episode, unspecified; Z88.8 Allergy status to other drugs, medicaments and biological substances; Z79.899 Other long term (current) drug therapy

== ENCOUNTER 2021-07-21 20:22 | Emergency (ER) | payer MEDICARE, MEDICAID ==
[~2021-07-21] VITALS: Ht 167.6 cm; Wt 138.6 kg
[~2021-07-21 20:22] MED LIST changes: +OMEP-173 PO; -OMEP-218 PO
[2021-07-21 20:33] VITALS: BP 86/51
== END 2021-07-21 21:59 | disposition left against medical advice (07) ==
LOC: M ED 20:22
DX: Z53.21 Procedure and treatment not carried out due to patient leaving prior to being seen by health care provider (principal)

== ENCOUNTER 2021-09-09 07:22 | Outpatient (CLI) | payer MEDICARE, MEDICAID ==
[~2021-09-09] VITALS: Ht 200.7 cm; Wt 144.1 kg
[~2021-09-09 07:22] MED LIST changes: +ALBUTEROL SULFATE 2.5 MG/0.5 ML INH NEB SOLN INH PRN; +EPINEPHrine INJ 1 MG/ML 1ML AMP IM PRN; +diphenhydrAMINE 50MG/ML VIAL (J1200) IV PRN; +methylPREDNISolone 125MG 2ML VIAL IV PRN
[2021-09-09 07:53] VITALS: BP 104/47
[2021-09-09] MEDS ORDERED: diphenhydrAMINE 50MG/ML VIAL (J1200) IV ONE (08:00)
[2021-09-09] MEDS ORDERED: NS 1,000 ML IV SCH (08:00)
[2021-09-09] MEDS ORDERED: FERRIC CARBOXYMALTOSE INJ 750 MG, VIAL MATE ADAPTER 1 EACH in NS 250 ML IV ONE (08:00)
[2021-09-09 09:29] VITALS: BP 108/58
== END 2021-09-09 09:30 | disposition home or self-care (01) ==
LOC: M INFU 07:22
PROVIDERS: ATTEND Internal Medicine Nephrology
DX: N18.9 Chronic kidney disease, unspecified (principal); D63.1 Anemia in chronic kidney disease
CPT/HCPCS: 96365; 96375; J1200; J1439

== ENCOUNTER 2021-10-25 11:03 | Emergency (ER) | payer MEDICARE, MEDICAID ==
[~2021-10-25 11:03] MED LIST changes: -ALBUTEROL SULFATE 2.5 MG/0.5 ML INH NEB SOLN INH PRN; -EPINEPHrine INJ 1 MG/ML 1ML AMP IM PRN; -diphenhydrAMINE 50MG/ML VIAL (J1200) IV PRN; -methylPREDNISolone 125MG 2ML VIAL IV PRN
[2021-10-25] MEDS ORDERED: MELO15TA28 PO (11:51)
[2021-10-25 12:33] LABS: BASO # 0.1 10^3/uL (0.0-0.2); EOS # 1.2 10^3/uL (0.0-0.5); EOS % 10.8 % (0.0-3.0); HEMATOCRIT 30.4 % (36.0-47.0); HEMOGLOBIN 9.7 g/dl (12.0-15.5); LYMPH # 2.6 10^3/uL (1.5-5.0); LYMPH % 23.5 % (24.0-44.0); MEAN CORPUSCULAR HEMOGLOBIN 32.8 pg (27.0-33.0); MEAN CORPUSCULAR HGB CONC 31.9 g/dl (32.0-36.5); MEAN CORPUSCULAR VOLUME 102.7 fl (80.0-96.0); MONO # 1.2 10^3/uL (0.0-0.8); MONO % 11.1 % (2.0-8.0); NEUTROPHILS # 5.9 10^3/uL (1.5-8.5); NEUTROPHILS % 53.2 % (36.0-66.0); PLATELET COUNT, AUTOMATED 418 10^3/uL (150-450); RED BLOOD COUNT 2.96 10^6/uL (4.00-5.40); WHITE BLOOD COUNT 11.1 10^3/uL (4.0-10.0)
[2021-10-25 12:58] LABS: CK-MB VALUE MASS < 1.0 NG/ML (<3.6); CPK CREATINE PHOSPHOKINASE 64 U/L (26-192); MB/CK RELATIVE INDEX 1.56 (< OR =4)
[2021-10-25] MEDS ORDERED: NS 500 ML IV ONE (13:00)
[2021-10-25 13:04] LABS: ALBUMIN 2.6 GM/DL (3.2-5.2); ALT/SGPT 10 U/L (12-78); BILIRUBIN,TOTAL 0.3 MG/DL (0.2-1.0); BLOOD UREA NITROGEN 30 MG/DL (7-18); CALCIUM LEVEL 10.1 MG/DL (8.5-10.1); CARBON DIOXIDE LEVEL 29 MEQ/L (21-32); CHLORIDE LEVEL 101 MEQ/L (98-107); CREATININE FOR GFR 8.34 MG/DL (0.55-1.30); GLOMERULAR FILTRATION RATE 5.6 (>58); GLUCOSE, FASTING 80 MG/DL (70-100); POTASSIUM SERUM 3.9 MEQ/L (3.5-5.1); SODIUM LEVEL 141 MEQ/L (136-145); TOTAL PROTEIN 6.2 GM/DL (6.4-8.2)
[2021-10-25 13:12] LABS: HCG, SERUM QUALITATIVE NEGATIVE (NEGATIVE)
[2021-10-25 13:42] LABS: MAGNESIUM LEVEL 2.1 MG/DL (1.8-2.4); PHOSPHORUS LEVEL 8.2 MG/DL (2.5-4.9)
[2021-10-25 13:48] LABS: CK-MB VALUE MASS < 1.0 NG/ML (<3.6); CPK CREATINE PHOSPHOKINASE 57 U/L (26-192); MB/CK RELATIVE INDEX 1.75 (< OR =4)
[2021-10-25 16:09] VITALS: BP 130/59
== END 2021-10-25 16:13 | disposition home or self-care (01) ==
LOC: M ED 11:03
DX: I95.1 Orthostatic hypotension (principal); R94.31 Abnormal electrocardiogram [ECG] [EKG]; D64.9 Anemia, unspecified; I12.0 Hypertensive chronic kidney disease with stage 5 chronic kidney disease or end stage renal disease; E78.5 Hyperlipidemia, unspecified; N80.9 Endometriosis, unspecified; Z79.899 Other long term (current) drug therapy; Z88.8 Allergy status to other drugs, medicaments and biological substances; Z91.048 Other nonmedicinal substance allergy status; Z87.42 Personal history of other diseases of the female genital tract; Z90.49 Acquired absence of other specified parts of digestive tract; Z98.890 Other specified postprocedural states

== ENCOUNTER 2021-11-25 16:41 | Emergency (ER) | payer MEDICARE, MEDICAID ==
[~2021-11-25] VITALS: Ht 167.6 cm; Wt 138.6 kg
[~2021-11-25 16:41] MED LIST changes: +MELO15TA28 PO
[2021-11-25] MEDS ORDERED: NORCO, ANEXSIA 5/325MG TABLET (HYDROcodone/ACETAMINOPHEN) PO ONE (17:25)
[2021-11-25] MEDS ORDERED: HYDR-4966 PO (17:41)
[2021-11-25 17:53] VITALS: BP 147/66
[2021-11-25] MEDS ORDERED: HYDR-3713 PO (17:56)
== END 2021-11-25 18:06 | disposition home or self-care (01) ==
LOC: M ED 16:41
DX: R55 Syncope and collapse (principal); I10 Essential (primary) hypertension; N18.6 End stage renal disease; Z99.2 Dependence on renal dialysis; E66.01 Morbid (severe) obesity due to excess calories; Z90.49 Acquired absence of other specified parts of digestive tract; Z98.890 Other specified postprocedural states; Z88.8 Allergy status to other drugs, medicaments and biological substances; Z91.048 Other nonmedicinal substance allergy status; Z79.899 Other long term (current) drug therapy

== ENCOUNTER 2021-12-03 12:12 | Inpatient (IN) | payer MEDICARE, MEDICAID ==
[~2021-12-03] VITALS: Ht 167.6 cm; Wt 138.6 kg
[~2021-12-03 12:12] MED LIST changes: +HYDR-3713 PO; +HYDR-4966 PO
[2021-12-03] MEDS ORDERED: ONDANSETRON 4MG/2ML VIAL IV ONE (12:35)
[2021-12-03 13:07] LABS: BASO # 0.1 10^3/uL (0.0-0.2); BASO % 0.9 % (0.0-1.0); EOS # 0.7 10^3/uL (0.0-0.5); EOS % 6.4 % (0.0-3.0); HEMATOCRIT 31.5 % (36.0-47.0); HEMOGLOBIN 10.4 g/dl (12.0-15.5); LYMPH % 25.8 % (24.0-44.0); MEAN CORPUSCULAR HEMOGLOBIN 32.7 pg (27.0-33.0); MEAN CORPUSCULAR VOLUME 99.1 fl (80.0-96.0); NEUTROPHILS # 6.6 10^3/uL (1.5-8.5); NEUTROPHILS % 57.6 % (36.0-66.0); PLATELET COUNT, AUTOMATED 400 10^3/uL (150-450); RED BLOOD COUNT 3.18 10^6/uL (4.00-5.40); WHITE BLOOD COUNT 11.5 10^3/uL (4.0-10.0)
[2021-12-03 13:52] LABS: CALCIUM LEVEL 8.9 MG/DL (8.5-10.1); CREATININE FOR GFR 10.2 MG/DL (0.55-1.30); FREE T4 1.05 NG/DL (0.76-1.46); GLOMERULAR FILTRATION RATE 4.4 (>58); MAGNESIUM LEVEL 2.1 MG/DL (1.8-2.4); THYROID STIMULATING HORMONE 3.29 uIU/ML (0.358-3.740)
[2021-12-03] MEDS ORDERED: NS 500 ML IV ONE ×2 (14:05→15:50)
[2021-12-03 16:30] LABS: HEMOGLOBIN A1c 4.5 %
[2021-12-03 16:52] LABS: RSV AMPLIFICATION NEGATIVE (NEGATIVE)
[2021-12-03] MEDS ORDERED: ATOR40TA75 PO (17:45)
[2021-12-03] MEDS ORDERED: HOME MED LIST COMPLETE! XX SCH (17:45)
[2021-12-03] MEDS: DOCUSATE SODIUM 100MG CAPSULE PO SCH (21:00)
[2021-12-04] MEDS ORDERED: HEPARIN SOD (PORCINE) 5000UNITS/ML 1ML VIAL/SYRINGE SC SCH (06:00)
[2021-12-04 06:06] LABS: BASO # 0.1 10^3/uL (0.0-0.2); EOS # 0.8 10^3/uL (0.0-0.5); EOS % 8.5 % (0.0-3.0); HEMATOCRIT 29.1 % (36.0-47.0); HEMOGLOBIN 9.4 g/dl (12.0-15.5); LYMPH # 2.7 10^3/uL (1.5-5.0); LYMPH % 30.1 % (24.0-44.0); MEAN CORPUSCULAR HEMOGLOBIN 32.2 pg (27.0-33.0); MEAN CORPUSCULAR HGB CONC 32.3 g/dl (32.0-36.5); MEAN CORPUSCULAR VOLUME 99.7 fl (80.0-96.0); MONO % 11.4 % (2.0-8.0); NEUTROPHILS # 4.4 10^3/uL (1.5-8.5); NEUTROPHILS % 48.7 % (36.0-66.0); PLATELET COUNT, AUTOMATED 375 10^3/uL (150-450); RED BLOOD COUNT 2.92 10^6/uL (4.00-5.40); WHITE BLOOD COUNT 9.1 10^3/uL (4.0-10.0)
[2021-12-04 06:19] LABS: CALCIUM LEVEL 9.4 MG/DL (8.5-10.1); POTASSIUM SERUM 4.3 MEQ/L (3.5-5.1)
[2021-12-04 08:00] VITALS: BP 105/56
[2021-12-04] MEDS ORDERED: (RENVELA) SEVELAMER **CARBONate** 800 MG TAB PO SCH (08:00)
[2021-12-04] MEDS ORDERED: SUCROFERRIC OXYHYDROXIDE 500MG CHEW TAB (VELPHORO) PO SCH (08:00)
[2021-12-04] MEDS ORDERED: LIDOCAINE 1% SDV 5ML VIAL SC PRN (08:30)
[2021-12-04] MEDS ORDERED: SODIUM CHLORIDE 0.9% 1000ML IV PRN (08:30)
[2021-12-04] MEDS: DOCUSATE SODIUM 100MG CAPSULE PO SCH (08:33)
[2021-12-04] MEDS ORDERED: ATORVASTATIN 20 MG TAB PO SCH (09:00)
[2021-12-04] MEDS ORDERED: MELOXICAM (MOBIC) 7.5 MG TAB PO SCH (21:00)
[2021-12-04] MEDS ORDERED: OMEPRAZOLE 20MG CAP PO SCH (21:00)
== END 2021-12-04 13:25 | disposition home or self-care (01) | DRG 314 ==
LOC: EDBD 12:12 → M ED 12:12 → M ED INP 17:23 → ENRESERV 12-04 10:04
PROVIDERS: ADMIT Internal Medicine Nephrology; ATTEND Internal Medicine Nephrology
DX: I95.89 Other hypotension (principal); N18.6 End stage renal disease; Z68.42 Body mass index [BMI] 45.0-49.9, adult; N25.81 Secondary hyperparathyroidism of renal origin; Z99.2 Dependence on renal dialysis; Z90.5 Acquired absence of kidney; E66.01 Morbid (severe) obesity due to excess calories; G43.909 Migraine, unspecified, not intractable, without status migrainosus; F32.A Depression, unspecified; E83.39 Other disorders of phosphorus metabolism; D64.9 Anemia, unspecified; K64.8 Other hemorrhoids; K21.9 Gastro-esophageal reflux disease without esophagitis; Z90.49 Acquired absence of other specified parts of digestive tract; Z98.84 Bariatric surgery status; G63 Polyneuropathy in diseases classified elsewhere; Z79.1 Long term (current) use of non-steroidal anti-inflammatories (NSAID); Z79.899 Other long term (current) drug therapy; Z88.8 Allergy status to other drugs, medicaments and biological substances; Z91.048 Other nonmedicinal substance allergy status

== ENCOUNTER 2021-12-06 13:24 | Outpatient (RCR) | payer MEDICARE, MEDICAID ==
[~2021-12-06 13:24] MED LIST changes: +ATOR40TA75 PO
== END 2021-12-09 ==
LOC: M PT 13:24
PROVIDERS: ATTEND Nurse Practitioner Family
DX: I89.0 Lymphedema, not elsewhere classified (principal)

== ENCOUNTER 2021-12-21 17:03 | Observation (INO) | payer MEDICARE, MEDICAID ==
[~2021-12-21] VITALS: Ht 167.6 cm; Wt 138.0 kg
[2021-12-21] MEDS ORDERED: NS 500 ML IV ONE (18:20)
[2021-12-21 18:37] LABS: BASO # 0.1 10^3/uL (0.0-0.2); BASO % 1.2 % (0.0-1.0); EOS # 0.5 10^3/uL (0.0-0.5); EOS % 6.1 % (0.0-3.0); HEMATOCRIT 36.3 % (36.0-47.0); HEMOGLOBIN 11.8 g/dl (12.0-15.5); LYMPH # 2.1 10^3/uL (1.5-5.0); LYMPH % 28.4 % (24.0-44.0); MEAN CORPUSCULAR HEMOGLOBIN 31.7 pg (27.0-33.0); MEAN CORPUSCULAR HGB CONC 32.5 g/dl (32.0-36.5); MEAN CORPUSCULAR VOLUME 97.6 fl (80.0-96.0); MONO # 0.9 10^3/uL (0.0-0.8); MONO % 11.7 % (2.0-8.0); NEUTROPHILS # 3.9 10^3/uL (1.5-8.5); NEUTROPHILS % 52.2 % (36.0-66.0); PLATELET COUNT, AUTOMATED 360 10^3/uL (150-450); RED BLOOD COUNT 3.72 10^6/uL (4.00-5.40); WHITE BLOOD COUNT 7.5 10^3/uL (4.0-10.0)
[2021-12-21 18:48] LABS: CALCIUM LEVEL 9.6 MG/DL (8.5-10.1); CREATININE FOR GFR 5.1 MG/DL (0.55-1.30); FREE T4 1.3 NG/DL (0.76-1.46); GLOMERULAR FILTRATION RATE 9.8 (>58); POTASSIUM SERUM 3.3 MEQ/L (3.5-5.1); THYROID STIMULATING HORMONE 3.02 uIU/ML (0.358-3.740)
[2021-12-21] MEDS ORDERED: POTASSIUM CHLORIDE 10MEQ SR TABLET PO ONE (19:20)
[2021-12-21] MEDS ORDERED: ACETAMINOPHEN TAB 650MG DOSE (2X325MG) PO PRN (21:15)
[2021-12-21 21:22] LABS: RSV AMPLIFICATION NEGATIVE (NEGATIVE)
[2021-12-21] MEDS ORDERED: HOME MED LIST COMPLETE! XX SCH (22:30)
[2021-12-22] MEDS ORDERED: MIDO5TA PO (09:18)
[2021-12-22 10:40] VITALS: BP 113/56
== END 2021-12-22 11:42 | disposition home or self-care (01) ==
LOC: EDBD 17:03 → M ED 17:03 → M ED INP 21:12
PROVIDERS: ADMIT Internal Medicine; ATTEND Internal Medicine
DX: I95.3 Hypotension of hemodialysis (principal); I95.1 Orthostatic hypotension; N80.9 Endometriosis, unspecified; R10.9 Unspecified abdominal pain; N18.6 End stage renal disease; Z99.2 Dependence on renal dialysis; N92.0 Excessive and frequent menstruation with regular cycle; E87.6 Hypokalemia; R94.31 Abnormal electrocardiogram [ECG] [EKG]; E66.9 Obesity, unspecified; G43.909 Migraine, unspecified, not intractable, without status migrainosus; F32.A Depression, unspecified; Z79.899 Other long term (current) drug therapy; Z88.8 Allergy status to other drugs, medicaments and biological substances; Z91.048 Other nonmedicinal substance allergy status
CPT/HCPCS: 36415; 71045; 80048; 84132; 84439; 84443; 84484; 85025; 87631; 93005; 93041; 94760; 96360; 99285; G0378

== ENCOUNTER 2022-01-04 16:39 | Emergency (ER) | payer MEDICARE, MEDICAID ==
[~2022-01-04] VITALS: Ht 167.6 cm; Wt 138.6 kg
[~2022-01-04 16:39] MED LIST changes: +MIDO5TA PO
[2022-01-04 17:03] VITALS: BP 109/55
== END 2022-01-04 21:05 | disposition home or self-care (01) ==
LOC: EDBD 16:39 → M ED 16:39
DX: M25.561 Pain in right knee (principal); N18.4 Chronic kidney disease, stage 4 (severe); E03.9 Hypothyroidism, unspecified; E78.5 Hyperlipidemia, unspecified; N80.9 Endometriosis, unspecified; M41.9 Scoliosis, unspecified; Z99.2 Dependence on renal dialysis; Z88.8 Allergy status to other drugs, medicaments and biological substances; Z91.048 Other nonmedicinal substance allergy status; Z79.899 Other long term (current) drug therapy

== ENCOUNTER 2022-02-03 03:05 | Inpatient (IN) | payer MEDICARE, MEDICAID ==
[~2022-02-03] VITALS: Ht 170.2 cm; Wt 153.2 kg
[2022-02-03 04:26] LABS: BASO # 0.1 10^3/uL (0.0-0.2); BASO % 1.3 % (0.0-1.0); EOS # 0.2 10^3/uL (0.0-0.5); EOS % 2.6 % (0.0-3.0); HEMATOCRIT 26.1 % (36.0-47.0); HEMOGLOBIN 8.5 g/dl (12.0-15.5); LYMPH # 2.3 10^3/uL (1.5-5.0); LYMPH % 37.2 % (24.0-44.0); MEAN CORPUSCULAR HEMOGLOBIN 30.7 pg (27.0-33.0); MEAN CORPUSCULAR HGB CONC 32.6 g/dl (32.0-36.5); MEAN CORPUSCULAR VOLUME 94.2 fl (80.0-96.0); MONO # 0.7 10^3/uL (0.0-0.8); MONO % 12.1 % (2.0-8.0); NEUTROPHILS # 2.8 10^3/uL (1.5-8.5); NEUTROPHILS % 46.6 % (36.0-66.0); PLATELET COUNT, AUTOMATED 397 10^3/uL (150-450); RED BLOOD COUNT 2.77 10^6/uL (4.00-5.40); WHITE BLOOD COUNT 6.1 10^3/uL (4.0-10.0)
[2022-02-03 04:53] LABS: CK-MB VALUE MASS 1.2 NG/ML (<3.6); MB/CK RELATIVE INDEX 2.22 (< OR =4)
[2022-02-03 04:56] LABS: RSV AMPLIFICATION NEGATIVE (NEGATIVE)
[2022-02-03 04:58] LABS: ALBUMIN 2.7 GM/DL (3.2-5.2); BILIRUBIN,DIRECT 0.1 MG/DL (0.0-0.2); BILIRUBIN,TOTAL 0.4 MG/DL (0.2-1.0); CALCIUM LEVEL 8.7 MG/DL (8.5-10.1); CREATININE FOR GFR 16.8 MG/DL (0.55-1.30); GLOMERULAR FILTRATION RATE 2.5 (>58); TOTAL PROTEIN 6.6 GM/DL (6.4-8.2)
[2022-02-03] MEDS ORDERED: PATIROMER SORBITEX CALCIUM 8.4 GM POWDER PACKET (VELTASSA) PO ONE (05:15)
[2022-02-03] MEDS ORDERED: MOM 30ML SUSPENSION UDC PO PRN (06:10)
[2022-02-03] MEDS ORDERED: HOME MED LIST COMPLETE! XX SCH (06:30)
[2022-02-03] MEDS: cefTRIAXone SOD 1 GM in D5W MINI-BAG PLUS 50 ML IV SCH (06:42)
[2022-02-03 06:48] LABS: CK-MB VALUE MASS < 1.0 NG/ML (<3.6); CPK CREATINE PHOSPHOKINASE 51 U/L (26-192); MB/CK RELATIVE INDEX 1.96 (< OR =4)
[2022-02-03] MEDS: DOXYCYCLINE HYCLATE 100 MG in D5W MINI-BAG PLUS 100 ML IV SCH ×2 (08:57→20:47)
[2022-02-03] MEDS: DOCUSATE SODIUM 100MG CAPSULE PO SCH ×2 (09:00→20:47)
[2022-02-03] MEDS: ATORVASTATIN 20 MG TAB PO SCH (09:00)
[2022-02-03 10:30] VITALS: BP 132/61
[2022-02-03] MEDS ORDERED: SODIUM CHLORIDE 0.9% 1000ML IV PRN (11:45)
[2022-02-03] MEDS ORDERED: LIDOCAINE 1% SDV 5ML VIAL SC PRN (11:45)
[2022-02-03 12:02] VITALS: BP 115/63
[2022-02-03] MEDS: (RENVELA) SEVELAMER **CARBONate** 800 MG TAB PO SCH ×2 (12:30→17:47)
[2022-02-03] MEDS: SUCROFERRIC OXYHYDROXIDE 500MG CHEW TAB (VELPHORO) PO SCH ×2 (12:30→17:47)
[2022-02-03] MEDS: ACETAMINOPHEN TAB 650MG DOSE (2X325MG) PO PRN (13:44)
[2022-02-03] MEDS: HEPARIN SOD (PORCINE) 5000UNITS/ML 1ML VIAL/SYRINGE SC SCH ×2 (14:00→20:47)
[2022-02-03 16:48] VITALS: BP 110/68
[2022-02-03 20:00] VITALS: BP 105/52
[2022-02-03] MEDS: OMEPRAZOLE 20MG CAP PO SCH (20:47)
[2022-02-04] VITALS (9 sets, daily range): BP systolic 93–180; BP diastolic 42–78
[2022-02-04] MEDS: cefTRIAXone SOD 1 GM in D5W MINI-BAG PLUS 50 ML IV SCH (06:39)
[2022-02-04] MEDS: HEPARIN SOD (PORCINE) 5000UNITS/ML 1ML VIAL/SYRINGE SC SCH ×3 (06:40→23:31)
[2022-02-04 07:01] LABS: HEMATOCRIT 27.6 % (36.0-47.0); HEMOGLOBIN 8.6 g/dl (12.0-15.5); MEAN CORPUSCULAR HEMOGLOBIN 29.5 pg (27.0-33.0); MEAN CORPUSCULAR HGB CONC 31.2 g/dl (32.0-36.5); MEAN CORPUSCULAR VOLUME 94.5 fl (80.0-96.0); PLATELET COUNT, AUTOMATED 419 10^3/uL (150-450); RED BLOOD COUNT 2.92 10^6/uL (4.00-5.40); WHITE BLOOD COUNT 7.1 10^3/uL (4.0-10.0)
[2022-02-04 07:37] LABS: CALCIUM LEVEL 9.7 MG/DL (8.5-10.1); CREATININE FOR GFR 8.78 MG/DL (0.55-1.30); GLOMERULAR FILTRATION RATE 5.2 (>58); MAGNESIUM LEVEL 2.1 MG/DL (1.8-2.4); PHOSPHORUS LEVEL 5.9 MG/DL (2.5-4.9); POTASSIUM SERUM 4.9 MEQ/L (3.5-5.1)
[2022-02-04] MEDS: ATORVASTATIN 20 MG TAB PO SCH (08:33)
[2022-02-04] MEDS: (RENVELA) SEVELAMER **CARBONate** 800 MG TAB PO SCH ×3 (08:33→18:43)
[2022-02-04] MEDS: DOCUSATE SODIUM 100MG CAPSULE PO SCH ×2 (08:33→20:18)
[2022-02-04] MEDS: SUCROFERRIC OXYHYDROXIDE 500MG CHEW TAB (VELPHORO) PO SCH ×3 (08:33→18:43)
[2022-02-04] MEDS: DOXYCYCLINE HYCLATE 100 MG in D5W MINI-BAG PLUS 100 ML IV SCH (08:33)
[2022-02-04] MEDS ORDERED: LIDOCAINE 1% SDV 5ML VIAL SC PRN (09:35)
[2022-02-04] MEDS ORDERED: SODIUM CHLORIDE 0.9% 1000ML IV PRN (09:35)
[2022-02-04] MEDS ORDERED: DARBEPOETIN 100 MCG/0.5 ML *DIALYSIS* SYRINGE (J0882) IV SCH (09:35)
[2022-02-04] MEDS: DOXYCYCLINE HYCLATE 100MG TABLET PO SCH (20:18)
[2022-02-04] MEDS: OMEPRAZOLE 20MG CAP PO SCH (20:18)
[2022-02-05] VITALS (7 sets, daily range): BP systolic 108–140; BP diastolic 56–86
[2022-02-05 05:57] LABS: HEMATOCRIT 28.3 % (36.0-47.0); HEMOGLOBIN 8.9 g/dl (12.0-15.5); MEAN CORPUSCULAR HEMOGLOBIN 30.4 pg (27.0-33.0); MEAN CORPUSCULAR HGB CONC 31.4 g/dl (32.0-36.5); MEAN CORPUSCULAR VOLUME 96.6 fl (80.0-96.0); PLATELET COUNT, AUTOMATED 401 10^3/uL (150-450); RED BLOOD COUNT 2.93 10^6/uL (4.00-5.40); WHITE BLOOD COUNT 8.4 10^3/uL (4.0-10.0)
[2022-02-05] MEDS: DOCUSATE SODIUM 100MG CAPSULE PO SCH ×2 (06:12→20:42)
[2022-02-05] MEDS: ATORVASTATIN 20 MG TAB PO SCH (06:12)
[2022-02-05] MEDS: HEPARIN SOD (PORCINE) 5000UNITS/ML 1ML VIAL/SYRINGE SC SCH ×3 (06:12→21:19)
[2022-02-05] MEDS: cefTRIAXone SOD 1 GM in D5W MINI-BAG PLUS 50 ML IV SCH (06:12)
[2022-02-05] MEDS: DOXYCYCLINE HYCLATE 100MG TABLET PO SCH ×2 (06:13→20:42)
[2022-02-05 06:37] LABS: CALCIUM LEVEL 9.9 MG/DL (8.5-10.1); CREATININE FOR GFR 5.38 MG/DL (0.55-1.30); GLOMERULAR FILTRATION RATE 9.2 (>58); PHOSPHORUS LEVEL 4.1 MG/DL (2.5-4.9); POTASSIUM SERUM 4.1 MEQ/L (3.5-5.1)
[2022-02-05] MEDS: (RENVELA) SEVELAMER **CARBONate** 800 MG TAB PO SCH ×3 (08:43→17:20)
[2022-02-05] MEDS: SUCROFERRIC OXYHYDROXIDE 500MG CHEW TAB (VELPHORO) PO SCH ×3 (08:44→17:19)
[2022-02-05] MEDS: METOPROLOL TART 25 MG TABLET PO SCH ×2 (08:50→21:00)
[2022-02-05] MEDS ORDERED: BENZONATATE 100MG CAPSULE PO ONE (20:00)
[2022-02-05] MEDS: OMEPRAZOLE 20MG CAP PO SCH (20:42)
[2022-02-05] MEDS ORDERED: AMIODARONE 200 MG TAB (PACERONE) PO ONE (23:00)
[2022-02-06] VITALS (7 sets, daily range): BP systolic 95–128; BP diastolic 47–67
[2022-02-06 04:40] LABS: CALCIUM LEVEL 10.1 MG/DL (8.5-10.1); CREATININE FOR GFR 7.2 MG/DL (0.55-1.30); GLOMERULAR FILTRATION RATE 6.6 (>58); PHOSPHORUS LEVEL 5.2 MG/DL (2.5-4.9); POTASSIUM SERUM 4.7 MEQ/L (3.5-5.1)
[2022-02-06] MEDS: HEPARIN SOD (PORCINE) 5000UNITS/ML 1ML VIAL/SYRINGE SC SCH ×3 (06:33→20:44)
[2022-02-06] MEDS: cefTRIAXone SOD 1 GM in D5W MINI-BAG PLUS 50 ML IV SCH (06:38)
[2022-02-06] MEDS: (RENVELA) SEVELAMER **CARBONate** 800 MG TAB PO SCH ×3 (09:35→17:09)
[2022-02-06] MEDS: DOCUSATE SODIUM 100MG CAPSULE PO SCH ×2 (09:36→20:43)
[2022-02-06] MEDS: DOXYCYCLINE HYCLATE 100MG TABLET PO SCH ×2 (09:36→20:44)
[2022-02-06] MEDS: SUCROFERRIC OXYHYDROXIDE 500MG CHEW TAB (VELPHORO) PO SCH ×3 (09:36→17:09)
[2022-02-06] MEDS: ATORVASTATIN 20 MG TAB PO SCH (09:36)
[2022-02-06] MEDS: METOPROLOL TART 25 MG TABLET PO SCH (09:36)
[2022-02-06] MEDS ORDERED: AMIODARONE HCL 360 MG in IV 1 EA IV SCH (10:30)
[2022-02-06] MEDS: AMIODARONE HCL 360 MG in IV 1 EA IV SCH (16:35)
[2022-02-06] MEDS: OMEPRAZOLE 20MG CAP PO SCH (20:44)
[2022-02-07] VITALS (8 sets, daily range): BP systolic 98–117; BP diastolic 51–62
[2022-02-07] MEDS: AMIODARONE HCL 360 MG in IV 1 EA IV SCH (04:19)
[2022-02-07] MEDS: HEPARIN SOD (PORCINE) 5000UNITS/ML 1ML VIAL/SYRINGE SC SCH ×3 (05:44→20:01)
[2022-02-07] MEDS ORDERED: LIDOCAINE 1% SDV 5ML VIAL SC PRN (06:25)
[2022-02-07] MEDS ORDERED: SODIUM CHLORIDE 0.9% 1000ML IV PRN (06:25)
[2022-02-07] MEDS: ATORVASTATIN 20 MG TAB PO SCH (06:33)
[2022-02-07] MEDS: DOCUSATE SODIUM 100MG CAPSULE PO SCH ×2 (06:33→20:01)
[2022-02-07] MEDS: DOXYCYCLINE HYCLATE 100MG TABLET PO SCH ×2 (06:34→20:01)
[2022-02-07] MEDS: (RENVELA) SEVELAMER **CARBONate** 800 MG TAB PO SCH ×3 (06:34→17:49)
[2022-02-07] MEDS: SUCROFERRIC OXYHYDROXIDE 500MG CHEW TAB (VELPHORO) PO SCH ×3 (06:34→17:49)
[2022-02-07 06:39] LABS: HEMOGLOBIN 8.6 g/dl (12.0-15.5); MEAN CORPUSCULAR HEMOGLOBIN 30.3 pg (27.0-33.0); MEAN CORPUSCULAR HGB CONC 31.9 g/dl (32.0-36.5); MEAN CORPUSCULAR VOLUME 95.1 fl (80.0-96.0); PLATELET COUNT, AUTOMATED 434 10^3/uL (150-450); RED BLOOD COUNT 2.84 10^6/uL (4.00-5.40); WHITE BLOOD COUNT 9.4 10^3/uL (4.0-10.0)
[2022-02-07 07:23] LABS: CALCIUM LEVEL 9.8 MG/DL (8.5-10.1); CREATININE FOR GFR 8.87 MG/DL (0.55-1.30); GLOMERULAR FILTRATION RATE 5.2 (>58); MAGNESIUM LEVEL 2.1 MG/DL (1.8-2.4); PHOSPHORUS LEVEL 5.8 MG/DL (2.5-4.9); POTASSIUM SERUM 4.6 MEQ/L (3.5-5.1)
[2022-02-07] MEDS: cefTRIAXone SOD 1 GM in D5W MINI-BAG PLUS 50 ML IV SCH (10:37)
[2022-02-07] MEDS ORDERED: guaiFENesin SYRUP 200MG 10ML UDC PO PRN (10:40)
[2022-02-07] MEDS ORDERED: CEFU50TA PO (17:42)
[2022-02-07] MEDS ORDERED: DOXY100T PO (17:42)
[2022-02-07] MEDS: OMEPRAZOLE 20MG CAP PO SCH (20:01)
[2022-02-07] MEDS: ACETAMINOPHEN TAB 650MG DOSE (2X325MG) PO PRN (20:01)
[2022-02-08 04:16] VITALS: BP 117/72
[2022-02-08] MEDS: HEPARIN SOD (PORCINE) 5000UNITS/ML 1ML VIAL/SYRINGE SC SCH (06:16)
[2022-02-08 06:56] LABS: BASO # 0.1 10^3/uL (0.0-0.2); BASO % 1.1 % (0.0-1.0); EOS # 0.9 10^3/uL (0.0-0.5); EOS % 9.7 % (0.0-3.0); HEMATOCRIT 28.6 % (36.0-47.0); HEMOGLOBIN 9.3 g/dl (12.0-15.5); LYMPH # 2.8 10^3/uL (1.5-5.0); LYMPH % 32.1 % (24.0-44.0); MEAN CORPUSCULAR HEMOGLOBIN 30.9 pg (27.0-33.0); MEAN CORPUSCULAR HGB CONC 32.5 g/dl (32.0-36.5); MONO # 1.2 10^3/uL (0.0-0.8); MONO % 13.3 % (2.0-8.0); NEUTROPHILS # 3.8 10^3/uL (1.5-8.5); NEUTROPHILS % 43.5 % (36.0-66.0); PLATELET COUNT, AUTOMATED 385 10^3/uL (150-450); RED BLOOD COUNT 3.01 10^6/uL (4.00-5.40); WHITE BLOOD COUNT 8.8 10^3/uL (4.0-10.0)
[2022-02-08 07:38] LABS: CALCIUM LEVEL 10.6 MG/DL (8.5-10.1); CREATININE FOR GFR 6.46 MG/DL (0.55-1.30); GLOMERULAR FILTRATION RATE 7.4 (>58); MAGNESIUM LEVEL 2.2 MG/DL (1.8-2.4); PHOSPHORUS LEVEL 4.5 MG/DL (2.5-4.9); POTASSIUM SERUM 4.9 MEQ/L (3.5-5.1)
[2022-02-08] MEDS: ATORVASTATIN 20 MG TAB PO SCH (07:44)
[2022-02-08] MEDS: DOXYCYCLINE HYCLATE 100MG TABLET PO SCH (07:44)
[2022-02-08] MEDS: DOCUSATE SODIUM 100MG CAPSULE PO SCH (07:44)
[2022-02-08] MEDS: (RENVELA) SEVELAMER **CARBONate** 800 MG TAB PO SCH ×2 (07:45→07:48)
[2022-02-08] MEDS: SUCROFERRIC OXYHYDROXIDE 500MG CHEW TAB (VELPHORO) PO SCH ×2 (07:45→07:49)
[2022-02-08 08:19] VITALS: BP 116/58
[2022-02-08] MEDS: cefTRIAXone SOD 1 GM in D5W MINI-BAG PLUS 50 ML IV SCH (09:12)
[2022-02-08 12:01] VITALS: BP 116/73
== END 2022-02-08 13:06 | disposition short-term general hospital (02) | DRG 682 ==
LOC: M ED 03:05 → M ED INP 06:09 → M PCU 10:29
PROVIDERS: ADMIT Family Medicine; ATTEND Internal Medicine
PROC: 5A1D70Z Performance of Urinary Filtration, Intermittent, Less than 6 Hours Per Day (ICD-10-PCS; principal; 2022-02-03)
DX: N18.6 End stage renal disease (principal); J18.9 Pneumonia, unspecified organism; Z68.42 Body mass index [BMI] 45.0-49.9, adult; I47.2 Ventricular tachycardia; E21.1 Secondary hyperparathyroidism, not elsewhere classified; E66.01 Morbid (severe) obesity due to excess calories; F32.A Depression, unspecified; G43.909 Migraine, unspecified, not intractable, without status migrainosus; D64.9 Anemia, unspecified; K21.9 Gastro-esophageal reflux disease without esophagitis; E78.5 Hyperlipidemia, unspecified; E87.5 Hyperkalemia; I95.3 Hypotension of hemodialysis; I50.9 Heart failure, unspecified; I89.0 Lymphedema, not elsewhere classified; E87.70 Fluid overload, unspecified; Z91.15 Patient's noncompliance with renal dialysis; Z90.5 Acquired absence of kidney; Z99.2 Dependence on renal dialysis; Z90.49 Acquired absence of other specified parts of digestive tract; Z79.1 Long term (current) use of non-steroidal anti-inflammatories (NSAID); Z88.8 Allergy status to other drugs, medicaments and biological substances; Z79.899 Other long term (current) drug therapy; Z91.048 Other nonmedicinal substance allergy status

== ENCOUNTER 2022-02-15 16:49 | Inpatient (IN) | payer MEDICARE, MEDICAID ==
[~2022-02-15] VITALS: Ht 170.2 cm; Wt 143.9 kg
[~2022-02-15 16:49] MED LIST changes: +CEFU50TA PO; +DOXY100T PO
[2022-02-15 18:12] LABS: BASO # 0.1 10^3/uL (0.0-0.2); BASO % 1.2 % (0.0-1.0); EOS # 0.9 10^3/uL (0.0-0.5); EOS % 9.1 % (0.0-3.0); HEMATOCRIT 29.5 % (36.0-47.0); HEMOGLOBIN 9.7 g/dl (12.0-15.5); LYMPH # 3.2 10^3/uL (1.5-5.0); LYMPH % 33.2 % (24.0-44.0); MEAN CORPUSCULAR HEMOGLOBIN 30.3 pg (27.0-33.0); MEAN CORPUSCULAR HGB CONC 32.9 g/dl (32.0-36.5); MEAN CORPUSCULAR VOLUME 92.2 fl (80.0-96.0); MONO # 1.3 10^3/uL (0.0-0.8); MONO % 12.9 % (2.0-8.0); NEUTROPHILS # 4.2 10^3/uL (1.5-8.5); NEUTROPHILS % 43.3 % (36.0-66.0); PLATELET COUNT, AUTOMATED 346 10^3/uL (150-450); WHITE BLOOD COUNT 9.7 10^3/uL (4.0-10.0)
[2022-02-15 18:26] LABS: INR 1.12; PROTHROMBIN TIME 14.8 SECONDS (12.7-14.5)
[2022-02-15 18:27] LABS: PARTIAL THROMBOPLASTIN TIME 37.7 SECONDS (25.9-37.0)
[2022-02-15 18:43] LABS: ALBUMIN 2.4 GM/DL (3.2-5.2); BILIRUBIN,DIRECT 0.2 MG/DL (0.0-0.2); BILIRUBIN,TOTAL 0.6 MG/DL (0.2-1.0); CREATININE FOR GFR 5.58 MG/DL (0.55-1.30); GLOMERULAR FILTRATION RATE 8.8 (>58); POTASSIUM SERUM 3.5 MEQ/L (3.5-5.1); THYROID STIMULATING HORMONE 8.54 uIU/ML (0.358-3.740); TOTAL PROTEIN 6.3 GM/DL (6.4-8.2)
[2022-02-15 18:51] LABS: CK-MB VALUE MASS 1.2 NG/ML (<3.6); MB/CK RELATIVE INDEX 2.67 (< OR =4)
[2022-02-15] MEDS ORDERED: ISOVUE-370 76% 100ML VIAL As Ordered ONE (19:07)
[2022-02-15 19:29] LABS: MB/CK RELATIVE INDEX 2.27 (< OR =4)
[2022-02-15] MEDS ORDERED: LIDOCAINE 2% MDV 20ML VIAL SC ONE (21:35)
[2022-02-15] MEDS ORDERED: LIDOCAINE 1% SDV 30ML VIAL SC SCH (21:35)
[2022-02-16] MEDS ORDERED: MORPHINE 2 MG/ML 1ML VIAL IV ONE (00:50)
[2022-02-16] MEDS ORDERED: HEPARIN DRIP 25,000 UNITS in IV 1 EA IV SCH ×2 (02:10→04:30)
[2022-02-16] MEDS ORDERED: PANT-23 PO (03:50)
[2022-02-16] MEDS ORDERED: METO25TA4 PO (03:50)
[2022-02-16] MEDS ORDERED: IBUP-1720 PO (03:51)
[2022-02-16] MEDS ORDERED: HOME MED LIST COMPLETE! XX SCH (03:55)
[2022-02-16] MEDS ORDERED: HEPARIN SOD (PORCINE) 5000UNITS/ML 1ML VIAL/SYRINGE IV PRN (04:30)
[2022-02-16] MEDS ORDERED: ACETAMINOPHEN TAB 650MG DOSE (2X325MG) PO PRN (04:30)
[2022-02-16] MEDS ORDERED: HYDROMORPHONE HCL 0.5 MG/ 0.5 ML SYRINGE (J1170 PER 1) IV PRN (04:30)
[2022-02-16 06:44] LABS: HEMOGLOBIN 8.9 g/dl (12.0-15.5); MEAN CORPUSCULAR HEMOGLOBIN 31.1 pg (27.0-33.0); MEAN CORPUSCULAR VOLUME 94.4 fl (80.0-96.0); PLATELET COUNT, AUTOMATED 336 10^3/uL (150-450); RED BLOOD COUNT 2.86 10^6/uL (4.00-5.40); WHITE BLOOD COUNT 8.2 10^3/uL (4.0-10.0)
[2022-02-16 07:11] LABS: CALCIUM LEVEL 9.1 MG/DL (8.5-10.1); CREATININE FOR GFR 6.67 MG/DL (0.55-1.30); GLOMERULAR FILTRATION RATE 7.2 (>58)
[2022-02-16 08:00] LABS: CK-MB VALUE MASS < 1.0 NG/ML (<3.6); CPK CREATINE PHOSPHOKINASE 36 U/L (26-192); MB/CK RELATIVE INDEX 2.78 (< OR =4)
[2022-02-16] MEDS: PANTOPRAZOLE 40MG TAB (PROTONIX) PO SCH (08:21)
[2022-02-16] MEDS: METOPROLOL TART 25 MG TABLET PO SCH ×2 (08:22→21:03)
[2022-02-16] MEDS: SUCROFERRIC OXYHYDROXIDE 500MG CHEW TAB (VELPHORO) PO SCH ×3 (10:30→18:06)
[2022-02-16] MEDS: (RENVELA) SEVELAMER **CARBONate** 800 MG TAB PO SCH ×3 (10:31→18:06)
[2022-02-16 12:29] VITALS: BP 94/46
[2022-02-16 16:29] VITALS: BP 93/44
[2022-02-16 20:00] VITALS: BP 95/47
[2022-02-16] MEDS: SENOKOT S TAB PO SCH (21:03)
[2022-02-16] MEDS: ATORVASTATIN 20 MG TAB PO SCH (21:03)
[2022-02-16] MEDS: APIXABAN 5 MG TAB (ELIQUIS) PO SCH (21:03)
[2022-02-16 21:56] VITALS: BP 107/56
[2022-02-17] VITALS (8 sets, daily range): BP systolic 77–132; BP diastolic 42–60
[2022-02-17] MEDS ORDERED: MIDODRINE 5 MG TAB PO ONE (02:00)
[2022-02-17] MEDS ORDERED: LIDOCAINE 1% SDV 5ML VIAL SC PRN (06:00)
[2022-02-17] MEDS ORDERED: SODIUM CHLORIDE 0.9% 1000ML IV PRN (06:00)
[2022-02-17] MEDS: SENOKOT S TAB PO SCH ×2 (06:22→21:07)
[2022-02-17] MEDS: PANTOPRAZOLE 40MG TAB (PROTONIX) PO SCH (06:22)
[2022-02-17] MEDS: APIXABAN 5 MG TAB (ELIQUIS) PO SCH ×2 (06:22→21:07)
[2022-02-17] MEDS: METOPROLOL TART 25 MG TABLET PO SCH (06:23)
[2022-02-17] MEDS: (RENVELA) SEVELAMER **CARBONate** 800 MG TAB PO SCH ×4 (06:50→18:23)
[2022-02-17] MEDS: SUCROFERRIC OXYHYDROXIDE 500MG CHEW TAB (VELPHORO) PO SCH ×3 (06:50→17:41)
[2022-02-17 07:38] LABS: BASO # 0.1 10^3/uL (0.0-0.2); EOS # 1.1 10^3/uL (0.0-0.5); EOS % 11.5 % (0.0-3.0); HEMATOCRIT 29.1 % (36.0-47.0); LYMPH # 3.1 10^3/uL (1.5-5.0); LYMPH % 32.4 % (24.0-44.0); MEAN CORPUSCULAR HEMOGLOBIN 29.8 pg (27.0-33.0); MEAN CORPUSCULAR HGB CONC 30.9 g/dl (32.0-36.5); MEAN CORPUSCULAR VOLUME 96.4 fl (80.0-96.0); MONO # 1.4 10^3/uL (0.0-0.8); MONO % 14.9 % (2.0-8.0); NEUTROPHILS # 3.8 10^3/uL (1.5-8.5); PLATELET COUNT, AUTOMATED 380 10^3/uL (150-450); RED BLOOD COUNT 3.02 10^6/uL (4.00-5.40); WHITE BLOOD COUNT 9.6 10^3/uL (4.0-10.0)
[2022-02-17 08:22] LABS: CALCIUM LEVEL 9.3 MG/DL (8.5-10.1); CREATININE FOR GFR 8.58 MG/DL (0.55-1.30); GLOMERULAR FILTRATION RATE 5.4 (>58); MAGNESIUM LEVEL 2.1 MG/DL (1.8-2.4); POTASSIUM SERUM 4.1 MEQ/L (3.5-5.1)
[2022-02-17] MEDS: METOPROLOL TART 12.5 MG PER 1/2 TAB PO SCH ×2 (13:15→21:07)
[2022-02-17] MEDS: ATORVASTATIN 20 MG TAB PO SCH (21:07)
[2022-02-17] MEDS: PERCOCET 5MG/325MG TAB PO PRN (21:11)
[2022-02-17] MEDS ORDERED: METOCLOPRAMIDE INJ 10MG/2ML VIAL (J2765 PER 1) IV ONE (22:00)
[2022-02-18 04:00] VITALS: BP 123/58
[2022-02-18] MEDS: PERCOCET 5MG/325MG TAB PO PRN (05:13)
[2022-02-18 08:00] VITALS: BP 96/42
[2022-02-18] MEDS: (RENVELA) SEVELAMER **CARBONate** 800 MG TAB PO SCH (08:00)
[2022-02-18] MEDS: SUCROFERRIC OXYHYDROXIDE 500MG CHEW TAB (VELPHORO) PO SCH (08:00)
[2022-02-18 08:30] LABS: HEMATOCRIT 26.9 % (36.0-47.0); HEMOGLOBIN 8.4 g/dl (12.0-15.5); MEAN CORPUSCULAR HEMOGLOBIN 30.3 pg (27.0-33.0); MEAN CORPUSCULAR HGB CONC 31.2 g/dl (32.0-36.5); MEAN CORPUSCULAR VOLUME 97.1 fl (80.0-96.0); PLATELET COUNT, AUTOMATED 375 10^3/uL (150-450); RED BLOOD COUNT 2.77 10^6/uL (4.00-5.40); WHITE BLOOD COUNT 9.7 10^3/uL (4.0-10.0)
[2022-02-18 09:00] VITALS: BP 96/42
[2022-02-18] MEDS: METOPROLOL TART 12.5 MG PER 1/2 TAB PO SCH ×2 (09:00→09:40)
[2022-02-18 09:09] LABS: CALCIUM LEVEL 9.5 MG/DL (8.5-10.1); CREATININE FOR GFR 5.76 MG/DL (0.55-1.30); GLOMERULAR FILTRATION RATE 8.5 (>58); MAGNESIUM LEVEL 2.2 MG/DL (1.8-2.4); POTASSIUM SERUM 4.1 MEQ/L (3.5-5.1)
[2022-02-18] MEDS: SENOKOT S TAB PO SCH (09:40)
[2022-02-18] MEDS: APIXABAN 5 MG TAB (ELIQUIS) PO SCH (09:40)
[2022-02-18] MEDS: PANTOPRAZOLE 40MG TAB (PROTONIX) PO SCH (09:40)
[2022-02-18] MEDS ORDERED: METO1TAB87 PO (10:58)
[2022-02-18] MEDS ORDERED: ELIQ5TAB PO (11:00)
[2022-02-19] MEDS ORDERED: ELIQ5TAB PO (17:13)
== END 2022-02-18 15:14 | disposition home or self-care (01) | DRG 175 ==
LOC: M ED 16:49 → M ED INP 02-16 05:58 → ENRESERV 02-16 11:02 → M PCU 02-16 12:12 → OBSVTOIN 02-17 13:42
PROVIDERS: ADMIT Internal Medicine; ATTEND Internal Medicine
PROC: 5A1D70Z Performance of Urinary Filtration, Intermittent, Less than 6 Hours Per Day (ICD-10-PCS; principal; 2022-02-17)
DX: I26.94 Multiple subsegmental thrombotic pulmonary emboli without acute cor pulmonale (principal); N18.6 End stage renal disease; Z68.42 Body mass index [BMI] 45.0-49.9, adult; I24.8 Other forms of acute ischemic heart disease; I12.0 Hypertensive chronic kidney disease with stage 5 chronic kidney disease or end stage renal disease; D68.59 Other primary thrombophilia; E21.1 Secondary hyperparathyroidism, not elsewhere classified; K21.9 Gastro-esophageal reflux disease without esophagitis; M54.30 Sciatica, unspecified side; E66.01 Morbid (severe) obesity due to excess calories; F32.A Depression, unspecified; D64.9 Anemia, unspecified; I27.20 Pulmonary hypertension, unspecified; E78.5 Hyperlipidemia, unspecified; I95.89 Other hypotension; G43.909 Migraine, unspecified, not intractable, without status migrainosus; E83.39 Other disorders of phosphorus metabolism; Z90.49 Acquired absence of other specified parts of digestive tract; Z98.84 Bariatric surgery status; Z88.8 Allergy status to other drugs, medicaments and biological substances; Z99.2 Dependence on renal dialysis; Z86.718 Personal history of other venous thrombosis and embolism; Z79.899 Other long term (current) drug therapy; Z91.048 Other nonmedicinal substance allergy status; Z90.5 Acquired absence of kidney

== ENCOUNTER 2022-02-19 14:11 | Emergency (ER) | payer MEDICARE, MEDICAID ==
[~2022-02-19] VITALS: Ht 170.2 cm; Wt 142.0 kg
[~2022-02-19 14:11] MED LIST changes: +ELIQ5TAB PO; +IBUP-1720 PO; +METO1TAB87 PO; +METO25TA4 PO; +PANT-23 PO
[2022-02-19 15:33] VITALS: O2SAT 93
[2022-02-19] MEDS ORDERED: ELIQ5TAB PO (17:13)
[2022-02-19 17:27] VITALS: BP 114/69
== END 2022-02-19 18:18 | disposition home or self-care (01) ==
LOC: EDBD 14:11 → M ED 14:11
DX: I26.99 Other pulmonary embolism without acute cor pulmonale (principal); N18.6 End stage renal disease; Z99.2 Dependence on renal dialysis; I95.9 Hypotension, unspecified; F32.A Depression, unspecified; G43.909 Migraine, unspecified, not intractable, without status migrainosus; K21.9 Gastro-esophageal reflux disease without esophagitis; N13.70 Vesicoureteral-reflux, unspecified; Z79.899 Other long term (current) drug therapy; Z79.01 Long term (current) use of anticoagulants

== ENCOUNTER 2022-04-05 14:35 | Outpatient (CLI) | payer MEDICARE, MEDICAID ==
[~2022-04-05] VITALS: Ht 170.2 cm; Wt 144.3 kg
[2022-04-05 14:10] VITALS: BP 104/51
[~2022-04-05 14:35] MED LIST changes: +ACETAMINOPHEN TAB 650MG DOSE (2X325MG) PO ONE; +ALBUTEROL SULFATE 2.5 MG/0.5 ML INH NEB SOLN INH PRN; +EPINEPHrine INJ 1 MG/ML 1ML AMP IM PRN; +FERRIC CARBOXYMALTOSE INJ 750 MG in NS 250 ML (>50kg) IV ONE; +NS 1,000 ML IV SCH; +diphenhydrAMINE 50MG/ML VIAL (J1200) IV PRN; +methylPREDNISolone 125MG 2ML VIAL IV PRN
[2022-04-05 15:20] VITALS: BP 98/50
== END 2022-04-05 15:30 | disposition home or self-care (01) ==
LOC: M INFU 14:35
PROVIDERS: ATTEND Internal Medicine Nephrology
DX: D64.9 Anemia, unspecified (principal); Z88.8 Allergy status to other drugs, medicaments and biological substances
CPT/HCPCS: 96365; J1439

== ENCOUNTER 2022-04-15 09:29 | Inpatient (IN) | payer MEDICARE, MEDICAID ==
[~2022-04-15] VITALS: Ht 170.2 cm; Wt 137.5 kg
[~2022-04-15 09:29] MED LIST changes: -ACETAMINOPHEN TAB 650MG DOSE (2X325MG) PO ONE; -ALBUTEROL SULFATE 2.5 MG/0.5 ML INH NEB SOLN INH PRN; -EPINEPHrine INJ 1 MG/ML 1ML AMP IM PRN; -FERRIC CARBOXYMALTOSE INJ 750 MG in NS 250 ML (>50kg) IV ONE; -NS 1,000 ML IV SCH; -diphenhydrAMINE 50MG/ML VIAL (J1200) IV PRN; -methylPREDNISolone 125MG 2ML VIAL IV PRN
[2022-04-15 10:21] LABS: VENOUS BASE EXCESS 4.5 (-2.0-2.0); VENOUS HCO3 29.5 MEQ/L (23.0-27.0); VENOUS O2 SATURATION 87.3 % (60.0-80.0); VENOUS PARTIAL PRESSURE CO2 46.7 mmHg (38.0-50.0); VENOUS PARTIAL PRESSURE O2 55.6 mmHg (30.0-50.0); VENOUS PH 7.419 UNITS (7.330-7.430); VENOUS STANDARD HCO3 28.3 MEQ/L
[2022-04-15 10:31] LABS: BASO # 0.1 10^3/uL (0.0-0.2); EOS # 0.6 10^3/uL (0.0-0.5); EOS % 6.6 % (0.0-3.0); HEMATOCRIT 26.4 % (36.0-47.0); HEMOGLOBIN 8.4 g/dl (12.0-15.5); LYMPH # 2.7 10^3/uL (1.5-5.0); LYMPH % 29.7 % (24.0-44.0); MEAN CORPUSCULAR HEMOGLOBIN 31.5 pg (27.0-33.0); MEAN CORPUSCULAR HGB CONC 31.8 g/dl (32.0-36.5); MEAN CORPUSCULAR VOLUME 98.9 fl (80.0-96.0); MONO # 1.2 10^3/uL (0.0-0.8); NEUTROPHILS # 4.4 10^3/uL (1.5-8.5); NEUTROPHILS % 48.8 % (36.0-66.0); PLATELET COUNT, AUTOMATED 407 10^3/uL (150-450); RED BLOOD COUNT 2.67 10^6/uL (4.00-5.40)
[2022-04-15 11:04] LABS: INR 1.11; PROTHROMBIN TIME 14.5 SECONDS (12.5-14.5)
[2022-04-15 11:14] LABS: CK-MB VALUE MASS < 1.0 NG/ML (<3.6); CPK CREATINE PHOSPHOKINASE 41 U/L (26-192); MB/CK RELATIVE INDEX 2.44 (< OR =4)
[2022-04-15] MEDS ORDERED: ISOVUE-370 76% 100ML VIAL As Ordered ONE (11:22)
[2022-04-15 11:23] LABS: ALBUMIN 2.7 GM/DL (3.2-5.2); BILIRUBIN,DIRECT 0.1 MG/DL (0.0-0.2); BILIRUBIN,TOTAL 0.5 MG/DL (0.2-1.0); CALCIUM LEVEL 8.8 MG/DL (8.5-10.1); CREATININE FOR GFR 11.1 MG/DL (0.55-1.30); POTASSIUM SERUM 3.9 MEQ/L (3.5-5.1); THYROID STIMULATING HORMONE 4.14 uIU/ML (0.358-3.740); TOTAL PROTEIN 6.6 GM/DL (6.4-8.2)
[2022-04-15 14:19] LABS: CK-MB VALUE MASS < 1.0 NG/ML (<3.6); CPK CREATINE PHOSPHOKINASE 37 U/L (26-192)
[2022-04-15] MEDS ORDERED: LIDOCAINE 1% SDV 5ML VIAL SC PRN (15:40)
[2022-04-15] MEDS ORDERED: SODIUM CHLORIDE 0.9% 1000ML IV PRN (15:40)
[2022-04-15] MEDS ORDERED: GABA-1171 PO (17:09)
[2022-04-15] MEDS ORDERED: OMEP-173 PO (17:09)
[2022-04-15] MEDS ORDERED: METO1TAB87 PO (17:09)
[2022-04-15] MEDS ORDERED: ELIQ5TAB PO (17:09)
[2022-04-15] MEDS ORDERED: HOME MED LIST COMPLETE! XX SCH (17:10)
[2022-04-15 20:53] VITALS: BP 123/63
[2022-04-15] MEDS: guaiFENesin ER 600 MG TAB PO SCH (21:47)
[2022-04-16 05:57] VITALS: BP 101/58
[2022-04-16 07:02] LABS: HEMATOCRIT 25.3 % (36.0-47.0); MEAN CORPUSCULAR HEMOGLOBIN 31.1 pg (27.0-33.0); MEAN CORPUSCULAR HGB CONC 31.6 g/dl (32.0-36.5); MEAN CORPUSCULAR VOLUME 98.4 fl (80.0-96.0); PLATELET COUNT, AUTOMATED 330 10^3/uL (150-450); RED BLOOD COUNT 2.57 10^6/uL (4.00-5.40); WHITE BLOOD COUNT 7.7 10^3/uL (4.0-10.0)
[2022-04-16 07:29] LABS: CALCIUM LEVEL 9.1 MG/DL (8.5-10.1); CREATININE FOR GFR 7.98 MG/DL (0.55-1.30); GLOMERULAR FILTRATION RATE 5.8 (>58); POTASSIUM SERUM 3.9 MEQ/L (3.5-5.1)
[2022-04-16] MEDS: guaiFENesin ER 600 MG TAB PO SCH ×2 (09:17→20:37)
[2022-04-16] MEDS ORDERED: INFLUENZA QUADRIVALENT PF VACCINE 0.5ML SYRINGE IM.IMMUN ONE (12:00)
[2022-04-16 14:00] VITALS: BP 122/64
[2022-04-16 20:37] VITALS: BP 104/64
[2022-04-17] MEDS: ACETAMINOPHEN TAB 650MG DOSE (2X325MG) PO PRN ×2 (03:21→20:20)
[2022-04-17 06:00] VITALS: BP 138/83
[2022-04-17] MEDS: guaiFENesin ER 600 MG TAB PO SCH ×2 (09:15→20:20)
[2022-04-18] MEDS: guaiFENesin ER 600 MG TAB PO SCH ×2 (05:43→21:17)
[2022-04-18] MEDS: ACETAMINOPHEN TAB 650MG DOSE (2X325MG) PO PRN (05:44)
[2022-04-18 06:00] VITALS: BP 113/64
[2022-04-18] MEDS ORDERED: LIDOCAINE 1% SDV 5ML VIAL SC PRN (06:50)
[2022-04-18] MEDS ORDERED: SODIUM CHLORIDE 0.9% 1000ML IV PRN (06:50)
[2022-04-18 07:40] LABS: HEMATOCRIT 26.7 % (36.0-47.0); HEMOGLOBIN 8.5 g/dl (12.0-15.5); MEAN CORPUSCULAR HEMOGLOBIN 31.1 pg (27.0-33.0); MEAN CORPUSCULAR HGB CONC 31.8 g/dl (32.0-36.5); MEAN CORPUSCULAR VOLUME 97.8 fl (80.0-96.0); PLATELET COUNT, AUTOMATED 377 10^3/uL (150-450); RED BLOOD COUNT 2.73 10^6/uL (4.00-5.40); WHITE BLOOD COUNT 8.5 10^3/uL (4.0-10.0)
[2022-04-18 08:35] LABS: CALCIUM LEVEL 9.6 MG/DL (8.5-10.1); CREATININE FOR GFR 11.2 MG/DL (0.55-1.30); GLOMERULAR FILTRATION RATE 3.9 (>58); MAGNESIUM LEVEL 2.3 MG/DL (1.8-2.4); PHOSPHORUS LEVEL 7.3 MG/DL (2.5-4.9)
[2022-04-18] MEDS ORDERED: SUCROFERRIC OXYHYDROXIDE 500MG CHEW TAB (VELPHORO) PO SCH (18:00)
[2022-04-18] MEDS ORDERED: (RENVELA) SEVELAMER **CARBONate** 800 MG TAB PO SCH (18:00)
[2022-04-18] MEDS ORDERED: ATORVASTATIN 20 MG TAB PO SCH (21:00)
[2022-04-18] MEDS: APIXABAN 5 MG TAB (ELIQUIS) PO SCH (21:16)
[2022-04-18] MEDS: GABAPENTIN 100 MG CAP PO SCH (21:17)
[2022-04-18] MEDS: METOPROLOL TART 25 MG TABLET PO SCH (21:19)
[2022-04-18] MEDS: PERCOCET 5MG/325MG TAB PO PRN (21:25)
[2022-04-19 05:39] VITALS: BP 107/64
[2022-04-19] MEDS: (RENVELA) SEVELAMER **CARBONate** 800 MG TAB PO SCH ×2 (08:00→11:52)
[2022-04-19] MEDS: SUCROFERRIC OXYHYDROXIDE 500MG CHEW TAB (VELPHORO) PO SCH ×2 (08:00→11:52)
[2022-04-19] MEDS: guaiFENesin ER 600 MG TAB PO SCH (08:31)
[2022-04-19] MEDS: GABAPENTIN 100 MG CAP PO SCH (08:31)
[2022-04-19] MEDS: APIXABAN 5 MG TAB (ELIQUIS) PO SCH (08:32)
[2022-04-19 08:37] VITALS: BP 107/64
[2022-04-19] MEDS: METOPROLOL TART 25 MG TABLET PO SCH (08:37)
[2022-04-19] MEDS ORDERED: PANTOPRAZOLE 40MG TAB (PROTONIX) PO SCH (09:00)
[2022-04-19] MEDS ORDERED: (RENVELA) SEVELAMER **CARBONate** 800 MG TAB PO SCH (09:00)
[2022-04-19] MEDS ORDERED: OMEPRAZOLE 20MG CAP PO SCH (09:00)
[2022-04-19] MEDS: PERCOCET 5MG/325MG TAB PO PRN (10:23)
[2022-04-19] MEDS ORDERED: VELP5CHW PO (11:45)
[2022-04-19] MEDS ORDERED: RENV2TAB PO (11:45)
[2022-04-19] MEDS ORDERED: ACET1TAB55 PO (11:45)
[2022-04-19] MEDS ORDERED: OXYC-517 PO (11:53)
[2022-04-19] MEDS ORDERED: DICL1GEL3 TOP (11:53)
[2022-04-19] MEDS ORDERED: LIDO1PAD TOP (11:53)
[2022-04-19] MEDS ORDERED: FERRIC CARBOXYMALTOSE INJ 750 MG, VIAL MATE ADAPTER 1 EACH in NS 250 ML IV ONE (12:00)
== END 2022-04-19 16:50 | disposition home health service (06) | DRG 640 ==
LOC: EDBD 09:29 → M ED 09:29 → M ED INP 09:30 → ENRESERV 19:07 → M MS5PR 20:33 → OBSVTOIN 04-18 16:56
PROVIDERS: ADMIT Internal Medicine; ATTEND Student in an Organized Health Care Education/Training Program
PROC: 5A1D70Z Performance of Urinary Filtration, Intermittent, Less than 6 Hours Per Day (ICD-10-PCS; principal; 2022-04-18)
DX: E87.70 Fluid overload, unspecified (principal); N18.6 End stage renal disease; Z68.42 Body mass index [BMI] 45.0-49.9, adult; I12.0 Hypertensive chronic kidney disease with stage 5 chronic kidney disease or end stage renal disease; E89.2 Postprocedural hypoparathyroidism; Z91.15 Patient's noncompliance with renal dialysis; Z99.2 Dependence on renal dialysis; E66.01 Morbid (severe) obesity due to excess calories; G43.909 Migraine, unspecified, not intractable, without status migrainosus; F32.A Depression, unspecified; E83.39 Other disorders of phosphorus metabolism; D64.9 Anemia, unspecified; K64.9 Unspecified hemorrhoids; I95.89 Other hypotension; I89.0 Lymphedema, not elsewhere classified; M25.552 Pain in left hip; R19.7 Diarrhea, unspecified; R21 Rash and other nonspecific skin eruption; K21.9 Gastro-esophageal reflux disease without esophagitis; Z90.5 Acquired absence of kidney; Z90.49 Acquired absence of other specified parts of digestive tract; Z90.81 Acquired absence of spleen; Z98.84 Bariatric surgery status; Z79.01 Long term (current) use of anticoagulants; Z79.899 Other long term (current) drug therapy; Z88.8 Allergy status to other drugs, medicaments and biological substances; Z91.048 Other nonmedicinal substance allergy status; Z86.711 Personal history of pulmonary embolism; Z86.16 Personal history of COVID-19

== ENCOUNTER 2022-04-22 16:58 | Emergency (ER) | payer MEDICARE, MEDICAID ==
[~2022-04-22 16:58] MED LIST changes: +ACET1TAB55 PO; +DICL1GEL3 TOP; +LIDO1PAD TOP; +OXYC-517 PO
[2022-04-22 17:56] LABS: BASO # 0.1 10^3/uL (0.0-0.2); BASO % 0.9 % (0.0-1.0); EOS # 0.5 10^3/uL (0.0-0.5); EOS % 5.9 % (0.0-3.0); HEMOGLOBIN 8.8 g/dl (12.0-15.5); LYMPH # 1.9 10^3/uL (1.5-5.0); LYMPH % 22.4 % (24.0-44.0); MEAN CORPUSCULAR HEMOGLOBIN 31.7 pg (27.0-33.0); MEAN CORPUSCULAR HGB CONC 31.4 g/dl (32.0-36.5); MEAN CORPUSCULAR VOLUME 100.7 fl (80.0-96.0); MONO # 1.1 10^3/uL (0.0-0.8); MONO % 12.3 % (2.0-8.0); NEUTROPHILS % 58.2 % (36.0-66.0); PLATELET COUNT, AUTOMATED 347 10^3/uL (150-450); RED BLOOD COUNT 2.78 10^6/uL (4.00-5.40); WHITE BLOOD COUNT 8.6 10^3/uL (4.0-10.0)
[2022-04-22 18:15] LABS: CK-MB VALUE MASS < 1.0 NG/ML (<3.6); CPK CREATINE PHOSPHOKINASE 35 U/L (26-192); MB/CK RELATIVE INDEX 2.86 (< OR =4); RSV AMPLIFICATION NEGATIVE (NEGATIVE)
[2022-04-22 18:34] LABS: CALCIUM LEVEL 9.8 MG/DL (8.5-10.1); CREATININE FOR GFR 8.17 MG/DL (0.55-1.30); GLOMERULAR FILTRATION RATE 5.7 (>58); POTASSIUM SERUM 3.7 MEQ/L (3.5-5.1)
[2022-04-22 19:17] LABS: CK-MB VALUE MASS < 1.0 NG/ML (<3.6); CPK CREATINE PHOSPHOKINASE 29 U/L (26-192); MB/CK RELATIVE INDEX 3.45 (< OR =4)
[2022-04-22 22:00] VITALS: BP 124/56
== END 2022-04-22 22:51 | disposition home or self-care (01) ==
LOC: M ED 16:58
DX: R07.89 Other chest pain (principal); N18.6 End stage renal disease; Z99.2 Dependence on renal dialysis; Z86.718 Personal history of other venous thrombosis and embolism; K21.9 Gastro-esophageal reflux disease without esophagitis; F32.A Depression, unspecified; Z90.49 Acquired absence of other specified parts of digestive tract; Z98.84 Bariatric surgery status; I12.0 Hypertensive chronic kidney disease with stage 5 chronic kidney disease or end stage renal disease; I51.7 Cardiomegaly; D64.9 Anemia, unspecified; Z90.5 Acquired absence of kidney; Z91.048 Other nonmedicinal substance allergy status; Z88.8 Allergy status to other drugs, medicaments and biological substances; R94.31 Abnormal electrocardiogram [ECG] [EKG]; Z79.01 Long term (current) use of anticoagulants; Z79.899 Other long term (current) drug therapy

== ENCOUNTER 2022-05-06 18:19 | Emergency (ER) | payer MEDICARE, MEDICAID ==
[~2022-05-06] VITALS: Ht 170.2 cm; Wt 141.6 kg
[2022-05-06] MEDS ORDERED: ASPIRIN 81 MG CHEW TABLET PO ONE (19:35)
[2022-05-06] MEDS ORDERED: NITROGLYCERIN 0.4 MG SUBL TABLET SL PRN (19:35)
[2022-05-06 20:12] VITALS: BP 159/74
[2022-05-06 20:14] LABS: BASO # 0.1 10^3/uL (0.0-0.2); BASO % 0.7 % (0.0-1.0); EOS # 0.6 10^3/uL (0.0-0.5); EOS % 6.9 % (0.0-3.0); HEMATOCRIT 28.9 % (36.0-47.0); HEMOGLOBIN 9.2 g/dl (12.0-15.5); LYMPH # 1.7 10^3/uL (1.5-5.0); LYMPH % 18.6 % (24.0-44.0); MEAN CORPUSCULAR HEMOGLOBIN 32.3 pg (27.0-33.0); MEAN CORPUSCULAR HGB CONC 31.8 g/dl (32.0-36.5); MEAN CORPUSCULAR VOLUME 101.4 fl (80.0-96.0); MONO # 0.7 10^3/uL (0.0-0.8); MONO % 8.3 % (2.0-8.0); NEUTROPHILS # 5.8 10^3/uL (1.5-8.5); NEUTROPHILS % 65.2 % (36.0-66.0); PLATELET COUNT, AUTOMATED 345 10^3/uL (150-450); RED BLOOD COUNT 2.85 10^6/uL (4.00-5.40); WHITE BLOOD COUNT 8.9 10^3/uL (4.0-10.0)
[2022-05-06 20:25] LABS: INR 1.02; PROTHROMBIN TIME 13.6 SECONDS (12.5-14.5)
[2022-05-06 20:47] LABS: ALBUMIN 2.9 G/DL (3.2-5.2); ALT/SGPT < 9 U/L (7.0-40); BILIRUBIN,DIRECT 0.2 MG/DL (<0.4); BILIRUBIN,TOTAL 0.4 MG/DL (0.3-1.2); BLOOD UREA NITROGEN 16 MG/DL (9-23); CALCIUM LEVEL 9.6 MG/DL (8.5-10.1); CARBON DIOXIDE LEVEL 33 MMOL/L (20-31); CHLORIDE LEVEL 95 MMOL/L (98-107); CK-MB VALUE MASS < 1.0 NG/ML (<3.6); CPK CREATINE PHOSPHOKINASE 31 U/L (34-145); CREATININE FOR GFR 6.25 MG/DL (0.55-1.30); FREE T4 0.94 NG/DL (0.89-1.76); GLOMERULAR FILTRATION RATE 7.7 (>58); GLUCOSE, FASTING 75 MG/DL (60-100); LIPASE 19 U/L (12-53); MB/CK RELATIVE INDEX 3.22 (< OR =4); POTASSIUM SERUM 3.4 MMOL/L (3.5-5.1); SODIUM LEVEL 139 MMOL/L (136-145); TOTAL PROTEIN 6.7 G/DL (5.7-8.2)
[2022-05-06 21:47] LABS: CK-MB VALUE MASS < 1.0 NG/ML (<3.6); CPK CREATINE PHOSPHOKINASE 28 U/L (34-145); MB/CK RELATIVE INDEX 3.57 (< OR =4)
[2022-05-06 21:59] LABS: D-DIMER QUANT 1515.43 ng/ml (<500)
[2022-05-06] MEDS ORDERED: ISOVUE-370 76% 100ML VIAL As Ordered ONE (23:00)
[2022-05-07 01:49] VITALS: BP 148/68
== END 2022-05-07 01:53 | disposition home or self-care (01) ==
LOC: M ED 18:19
DX: R07.89 Other chest pain (principal); I27.82 Chronic pulmonary embolism; I10 Essential (primary) hypertension; E78.5 Hyperlipidemia, unspecified; K21.9 Gastro-esophageal reflux disease without esophagitis; Z86.711 Personal history of pulmonary embolism; Z98.84 Bariatric surgery status; Z79.01 Long term (current) use of anticoagulants; Z79.899 Other long term (current) drug therapy; Z91.89 Other specified personal risk factors, not elsewhere classified; Z88.8 Allergy status to other drugs, medicaments and biological substances
CPT/HCPCS: 71045; 71275; 80048; 80076; 82550; 82553; 83690; 83880; 84439; 84443; 84484; 85025; 85379; 85610; 87486; 87581; 87633; 87798; 93005; 93041; 94760; 99285; Q9967

== ENCOUNTER 2022-06-16 04:50 | Emergency (ER) | payer MEDICARE, MEDICAID ==
[~2022-06-16] VITALS: Ht 170.2 cm; Wt 138.6 kg
[2022-06-16 11:49] LABS: BASO # 0.1 10^3/uL (0.0-0.2); BASO % 1.6 % (0.0-1.0); EOS # 0.5 10^3/uL (0.0-0.5); EOS % 7.7 % (0.0-3.0); HEMATOCRIT 32.4 % (36.0-47.0); HEMOGLOBIN 10.6 g/dl (12.0-15.5); LYMPH # 2.1 10^3/uL (1.5-5.0); LYMPH % 34.7 % (24.0-44.0); MEAN CORPUSCULAR HEMOGLOBIN 33.7 pg (27.0-33.0); MEAN CORPUSCULAR HGB CONC 32.7 g/dl (32.0-36.5); MEAN CORPUSCULAR VOLUME 102.9 fl (80.0-96.0); MONO # 0.7 10^3/uL (0.0-0.8); MONO % 10.8 % (2.0-8.0); NEUTROPHILS # 2.8 10^3/uL (1.5-8.5); PLATELET COUNT, AUTOMATED 305 10^3/uL (150-450); RED BLOOD COUNT 3.15 10^6/uL (4.00-5.40); WHITE BLOOD COUNT 6.1 10^3/uL (4.0-10.0)
[2022-06-16 11:57] LABS: ERYTHROCYTE SEDIMENTATION RATE 41 mm/hr (0-20)
[2022-06-16 12:15] LABS: BILIRUBIN,DIRECT 0.2 MG/DL (<0.4)
[2022-06-16 12:25] LABS: RSV AMPLIFICATION NEGATIVE (NEGATIVE)
[2022-06-16 12:55] LABS: ALBUMIN 3.2 G/DL (3.2-5.2); ALKALINE PHOSPHATASE 90 U/L (46-116); ALT/SGPT < 9 U/L (7.0-40); AST/SGOT < 8 U/L (<34); BILIRUBIN,TOTAL 0.3 MG/DL (0.3-1.2); CK-MB VALUE MASS < 1.0 NG/ML (<3.6); CPK CREATINE PHOSPHOKINASE 46 U/L (34-145); LIPASE 28 U/L (12-53); MB/CK RELATIVE INDEX 2.17 (< OR =4); TOTAL PROTEIN 7.3 G/DL (5.7-8.2)
[2022-06-16] MEDS ORDERED: PERCOCET 5MG/325MG TAB PO ONE (14:15)
[2022-06-16] MEDS ORDERED: ERYTHROMYCIN OPHTH OINT OU ONE (14:15)
[2022-06-16] MEDS ORDERED: PERC5TAB12 PO (15:31)
[2022-06-16] MEDS ORDERED: MUPI30CR TOP (15:32)
[2022-06-16] MEDS ORDERED: ERYTOIN8 OP (15:37)
[2022-06-16 15:40] VITALS: BP 122/69
== END 2022-06-16 15:56 | disposition home or self-care (01) ==
LOC: M ED 04:50
DX: M54.9 Dorsalgia, unspecified (principal); I44.0 Atrioventricular block, first degree; I45.81 Long QT syndrome; N18.6 End stage renal disease; M25.562 Pain in left knee; I12.0 Hypertensive chronic kidney disease with stage 5 chronic kidney disease or end stage renal disease; E83.51 Hypocalcemia; R74.02 Elevation of levels of lactic acid dehydrogenase [LDH]; Z91.048 Other nonmedicinal substance allergy status; Z88.8 Allergy status to other drugs, medicaments and biological substances; Z79.1 Long term (current) use of non-steroidal anti-inflammatories (NSAID); Z79.01 Long term (current) use of anticoagulants; Z79.899 Other long term (current) drug therapy; Z99.2 Dependence on renal dialysis; Z91.15 Patient's noncompliance with renal dialysis

== ENCOUNTER → 2022-07-08 | Outpatient (CLI) | payer MEDICARE, MEDICAID ==
[~2022-07-08] MED LIST changes: +ERYTOIN8 OP; +MUPI30CR TOP; +PERC5TAB12 PO
== END ==
LOC: M SOG 08:17
PROVIDERS: ATTEND Orthopaedic Surgery
DX: M54.50 Low back pain, unspecified (principal); Z53.8 Procedure and treatment not carried out for other reasons

== ENCOUNTER → 2022-07-21 | Outpatient (CLI) | payer MEDICARE, MEDICAID | LOC: M SOG 08:39 | PROVIDERS: ATTEND Orthopaedic Surgery | DX: M54.50 Low back pain, unspecified (principal) ==

== ENCOUNTER 2022-08-31 21:53 | Emergency (ER) | payer MEDICARE, MEDICAID ==
[~2022-08-31] VITALS: Ht 167.6 cm; Wt 143.3 kg
[2022-08-31] MEDS ORDERED: MORPHINE 2 MG/ML 1ML VIAL IV ONE (23:35)
[2022-09-01 01:15] VITALS: BP 131/64
== END 2022-09-01 02:43 | disposition home or self-care (01) ==
LOC: M ED 21:53 → EDBD 21:53 → M ED 09-01 02:43
DX: S70.02XA Contusion of left hip, initial encounter (principal); W01.0XXA Fall on same level from slipping, tripping and stumbling without subsequent striking against object, initial encounter; Y92.009 Unspecified place in unspecified non-institutional (private) residence as the place of occurrence of the external cause; Y93.01 Activity, walking, marching and hiking; Y99.8 Other external cause status; I10 Essential (primary) hypertension; E78.5 Hyperlipidemia, unspecified; K21.9 Gastro-esophageal reflux disease without esophagitis; N17.9 Acute kidney failure, unspecified; Z99.2 Dependence on renal dialysis
CPT/HCPCS: 70450; 71045; 72125; 72128; 72131; 73030; 73502; 96374; 99284; J2270

== ENCOUNTER → 2022-09-15 | Outpatient (CLI) | payer MEDICARE, MEDICAID ==
[~2022-09-15] MED LIST changes: +ACET650T61 PO
== END ==
LOC: M PLARAD 14:32
PROVIDERS: ATTEND Orthopaedic Surgery
DX: M25.562 Pain in left knee (principal); M22.42 Chondromalacia patellae, left knee; M71.22 Synovial cyst of popliteal space [Baker], left knee; M25.462 Effusion, left knee

== ENCOUNTER 2022-09-19 14:34 | Inpatient (IN) | payer MEDICARE, MEDICAID ==
[~2022-09-19] VITALS: Ht 170.2 cm; Wt 158.7 kg
[~2022-09-19 14:34] MED LIST changes: -ACET650T61 PO
[2022-09-19] MEDS ORDERED: PANTOPRAZOLE 40MG VIAL IV ONE (15:20)
[2022-09-19 15:36] LABS: BASO # 0.2 10^3/uL (0.0-0.2); BASO % 2.3 % (0.0-1.0); EOS # 0.4 10^3/uL (0.0-0.5); EOS % 6.2 % (0.0-3.0); HEMATOCRIT 32.1 % (36.0-47.0); HEMOGLOBIN 10.3 g/dl (12.0-15.5); LYMPH # 2.1 10^3/uL (1.5-5.0); LYMPH % 32.5 % (24.0-44.0); MEAN CORPUSCULAR HEMOGLOBIN 32.8 pg (27.0-33.0); MEAN CORPUSCULAR HGB CONC 32.1 g/dl (32.0-36.5); MEAN CORPUSCULAR VOLUME 102.2 fl (80.0-96.0); MONO # 0.7 10^3/uL (0.0-0.8); MONO % 10.3 % (2.0-8.0); NEUTROPHILS # 3.1 10^3/uL (1.5-8.5); NEUTROPHILS % 48.1 % (36.0-66.0); PLATELET COUNT, AUTOMATED 335 10^3/uL (150-450); RED BLOOD COUNT 3.14 10^6/uL (4.00-5.40); WHITE BLOOD COUNT 6.4 10^3/uL (4.0-10.0)
[2022-09-19 15:44] LABS: ALBUMIN 3.2 G/DL (3.2-5.2); BILIRUBIN,DIRECT 0.2 MG/DL (<0.4); BILIRUBIN,TOTAL 0.4 MG/DL (0.3-1.2); CALCIUM LEVEL 9.4 MG/DL (8.5-10.1); CK-MB VALUE MASS 2.7 NG/ML (<3.6); CREATININE FOR GFR 14.55 MG/DL (0.55-1.30); GLOMERULAR FILTRATION RATE 2.9 (>58); MB/CK RELATIVE INDEX 1.11 (< OR =4); POTASSIUM SERUM 7.2 MMOL/L (3.5-5.1); TOTAL PROTEIN 6.9 G/DL (5.7-8.2)
[2022-09-19] MEDS ORDERED: CALCIUM GLUCONATE 1,000MG/10ML VIAL (100MG/ML) IV ONE (15:45)
[2022-09-19 15:50] LABS: INR 1.3; PROTHROMBIN TIME 16.4 SECONDS (12.5-14.5)
[2022-09-19 15:51] LABS: PARTIAL THROMBOPLASTIN TIME 32.9 SECONDS (24.8-34.2)
[2022-09-19] MEDS ORDERED: PATIROMER SORBITEX CALCIUM 8.4 GM POWDER PACKET (VELTASSA) PO ONE (16:45)
[2022-09-19] MEDS ORDERED: HEPARIN SOD (PORCINE) 5000UNITS/ML 1ML VIAL/SYRINGE SC SCH ×2 (17:15→22:00)
[2022-09-19] MEDS ORDERED: HEPARIN 1,000UNITS/ML 10ML VIAL (FOR RADIOLOGY & DIALYSIS ONLY) XX SCH (17:30)
[2022-09-19] MEDS ORDERED: LIDOCAINE 1% SDV 5ML VIAL SC PRN (17:30)
[2022-09-19] MEDS ORDERED: SODIUM CHLORIDE 0.9% 1000ML IV PRN (17:30)
[2022-09-19] MEDS ORDERED: HEPARIN 1,000UNITS/ML 10ML VIAL (FOR RADIOLOGY & DIALYSIS ONLY) IV PRN (17:30)
[2022-09-19 18:04] LABS: RSV AMPLIFICATION NEGATIVE (NEGATIVE)
[2022-09-19 18:18] LABS: PERCENT SATURATION 5.6 % (13.2-45.0)
[2022-09-19 18:20] LABS: FERRITIN 28.7 NG/ML (7.3-270.7)
[2022-09-19 18:22] LABS: FOLATE 5.62 NG/ML (>5.4)
[2022-09-19] MEDS ORDERED: ACET650T61 PO (18:35)
[2022-09-19] MEDS ORDERED: HOME MED LIST COMPLETE! XX SCH (18:40)
[2022-09-19] MEDS ORDERED: ISOVUE-370 76% 100ML VIAL As Ordered ONE (19:02)
[2022-09-19 20:00] LABS: HEMATOCRIT 29.9 % (36.0-47.0); HEMOGLOBIN 9.8 g/dl (12.0-15.5)
[2022-09-19 20:19] LABS: CALCIUM LEVEL 9.1 MG/DL (8.5-10.1); CREATININE FOR GFR 10.35 MG/DL (0.55-1.30); GLOMERULAR FILTRATION RATE 4.3 (>58)
[2022-09-19 21:40] VITALS: BP 106/60
[2022-09-19] MEDS: GASTROGRAFIN SOLUTION 30ML PO SCH (22:05)
[2022-09-19] MEDS: GABAPENTIN 100 MG CAP PO SCH (22:05)
[2022-09-19] MEDS: ATORVASTATIN 20 MG TAB PO SCH (22:05)
[2022-09-20 00:30] VITALS: BP 125/59
[2022-09-20] MEDS: GASTROGRAFIN SOLUTION 30ML PO SCH (00:43)
[2022-09-20 03:48] LABS: HEMATOCRIT 29.8 % (36.0-47.0); HEMOGLOBIN 9.6 g/dl (12.0-15.5); MEAN CORPUSCULAR HEMOGLOBIN 32.5 pg (27.0-33.0); MEAN CORPUSCULAR HGB CONC 32.2 g/dl (32.0-36.5); PLATELET COUNT, AUTOMATED 282 10^3/uL (150-450); RED BLOOD COUNT 2.95 10^6/uL (4.00-5.40); WHITE BLOOD COUNT 5.5 10^3/uL (4.0-10.0)
[2022-09-20 04:08] LABS: CALCIUM LEVEL 9.6 MG/DL (8.5-10.1); CREATININE FOR GFR 9.86 MG/DL (0.55-1.30); GLOMERULAR FILTRATION RATE 4.6 (>58); MAGNESIUM LEVEL 1.6 MG/DL (1.8-2.4); PHOSPHORUS LEVEL 7.3 MG/DL (2.5-4.9); POTASSIUM SERUM 4.9 MMOL/L (3.5-5.1)
[2022-09-20] MEDS ORDERED: DEXTROSE 50% 50ML SYRINGE As Ordered ONE (05:05)
[2022-09-20] MEDS ORDERED: DEXTROSE 50% 50ML SYRINGE IV STA ×2 (05:06→05:34)
[2022-09-20 05:38] VITALS: BP 121/76
[2022-09-20] MEDS: METOPROLOL TART 25 MG TABLET PO SCH (06:39)
[2022-09-20] MEDS: GABAPENTIN 100 MG CAP PO SCH ×2 (06:43→20:54)
[2022-09-20] MEDS ORDERED: LIDOCAINE 1% SDV 5ML VIAL SC PRN (07:25)
[2022-09-20] MEDS ORDERED: HEPARIN 1,000UNITS/ML 10ML VIAL (FOR RADIOLOGY & DIALYSIS ONLY) XX SCH (07:25)
[2022-09-20] MEDS ORDERED: HEPARIN 1,000UNITS/ML 10ML VIAL (FOR RADIOLOGY & DIALYSIS ONLY) IV PRN (07:25)
[2022-09-20] MEDS ORDERED: SODIUM CHLORIDE 0.9% 1000ML IV PRN (07:25)
[2022-09-20] MEDS ORDERED: GLUCOSE 4GM CHEW TABLET PO PRN (07:55)
[2022-09-20] MEDS ORDERED: GLUCAGON INJ 1MG VIAL SC PRN (07:55)
[2022-09-20 08:06] VITALS: BP 100/57
[2022-09-20] MEDS: DEXTROSE 50% 50ML SYRINGE IV PRN ×2 (08:11→18:03)
[2022-09-20 08:53] LABS: HEMOGLOBIN A1c 4.8 % (4.0-6.0)
[2022-09-20] MEDS: PANTOPRAZOLE 40MG VIAL IV SCH ×2 (09:46→20:54)
[2022-09-20 11:42] VITALS: BP 93/51
[2022-09-20] MEDS ORDERED: DARBEPOETIN 100MCG/0.5ML *DIALYSIS* SYRINGE IV SCH (13:00)
[2022-09-20 13:38] LABS: ACETONE/KETONE 0.8 MMOL/L (0.02-0.27)
[2022-09-20] MEDS: (RENVELA) SEVELAMER **CARBONate** 800 MG TAB PO SCH ×2 (14:20→17:37)
[2022-09-20 17:27] VITALS: BP 95/54
[2022-09-20 20:09] VITALS: BP 139/56
[2022-09-20] MEDS: ATORVASTATIN 20 MG TAB PO SCH (20:53)
[2022-09-21 04:07] VITALS: BP 120/62
[2022-09-21] MEDS: METOPROLOL TART 25 MG TABLET PO SCH (06:31)
[2022-09-21] MEDS: PANTOPRAZOLE 40MG VIAL IV SCH (06:36)
[2022-09-21] MEDS: GABAPENTIN 100 MG CAP PO SCH ×2 (06:36→21:03)
[2022-09-21 07:33] VITALS: BP 117/69
[2022-09-21] MEDS: (RENVELA) SEVELAMER **CARBONate** 800 MG TAB PO SCH ×3 (08:07→18:57)
[2022-09-21 11:26] VITALS: BP 98/50
[2022-09-21] MEDS ORDERED: PERCOCET 5MG/325MG TAB PO ONE (11:40)
[2022-09-21] MEDS: LIDOCAINE 5% OINT 30GM TUBE TOP SCH ×3 (13:09→21:20)
[2022-09-21 16:20] VITALS: BP 98/70
[2022-09-21 20:00] VITALS: BP 114/70
[2022-09-21] MEDS: ATORVASTATIN 20 MG TAB PO SCH (21:03)
[2022-09-21] MEDS: APIXABAN 5 MG TAB (ELIQUIS) PO SCH (21:19)
[2022-09-21] MEDS: LIDOCAINE 5% (LIDODERM) PATCH TOP SCH (21:21)
[2022-09-21] MEDS: traMADol 50 MG TAB PO PRN (21:21)
[2022-09-21] MEDS: PANTOPRAZOLE 40MG TAB (PROTONIX) PO SCH (21:23)
[2022-09-22] MEDS ORDERED: LIDOCAINE 1% SDV 5ML VIAL SC PRN (00:20)
[2022-09-22] MEDS ORDERED: HEPARIN 1,000UNITS/ML 10ML VIAL (FOR RADIOLOGY & DIALYSIS ONLY) XX SCH (00:20)
[2022-09-22] MEDS ORDERED: SODIUM CHLORIDE 0.9% 1000ML IV PRN (00:20)
[2022-09-22] MEDS ORDERED: HEPARIN 1,000UNITS/ML 10ML VIAL (FOR RADIOLOGY & DIALYSIS ONLY) IV PRN (00:20)
[2022-09-22 04:06] VITALS: BP 102/52
[2022-09-22] MEDS: METOPROLOL TART 25 MG TABLET PO SCH (05:06)
[2022-09-22] MEDS: GABAPENTIN 100 MG CAP PO SCH ×2 (06:34→20:49)
[2022-09-22] MEDS: APIXABAN 5 MG TAB (ELIQUIS) PO SCH ×2 (06:34→20:49)
[2022-09-22] MEDS: PANTOPRAZOLE 40MG TAB (PROTONIX) PO SCH ×2 (06:34→20:49)
[2022-09-22] MEDS: (RENVELA) SEVELAMER **CARBONate** 800 MG TAB PO SCH ×3 (06:35→18:17)
[2022-09-22] MEDS: SUCROFERRIC OXYHYDROXIDE 500MG CHEW TAB (VELPHORO) PO SCH ×3 (06:42→18:17)
[2022-09-22] MEDS: LIDOCAINE 5% OINT 30GM TUBE TOP SCH ×4 (06:43→20:49)
[2022-09-22] MEDS ORDERED: SUCR1TA PO (07:36)
[2022-09-22] MEDS ORDERED: PANT40TA29 PO (07:36)
[2022-09-22 07:50] VITALS: BP 98/51
[2022-09-22] MEDS: LIDOCAINE 5% (LIDODERM) PATCH TOP SCH (08:08)
[2022-09-22] MEDS ORDERED: OMEPRAZOLE 20MG CAP PO SCH (09:00)
[2022-09-22 09:14] LABS: HEMATOCRIT 30.6 % (36.0-47.0); HEMOGLOBIN 9.4 g/dl (12.0-15.5); MEAN CORPUSCULAR HEMOGLOBIN 32.8 pg (27.0-33.0); MEAN CORPUSCULAR HGB CONC 30.7 g/dl (32.0-36.5); MEAN CORPUSCULAR VOLUME 106.6 fl (80.0-96.0); PLATELET COUNT, AUTOMATED 273 10^3/uL (150-450); RED BLOOD COUNT 2.87 10^6/uL (4.00-5.40); WHITE BLOOD COUNT 5.7 10^3/uL (4.0-10.0)
[2022-09-22 09:36] LABS: PERCENT SATURATION 2.9 % (13.2-45.0)
[2022-09-22] MEDS ORDERED: LANC30MI XX ×3 (09:59→11:52)
[2022-09-22] MEDS ORDERED: BLOOKIT21 XX ×3 (09:59→11:52)
[2022-09-22] MEDS ORDERED: GLUC1TES2 XX ×3 (09:59→11:52)
[2022-09-22] MEDS ORDERED: ALCOPAD25 TOP ×3 (09:59→11:52)
[2022-09-22] MEDS ORDERED: DEXT4TAB83 PO ×2 (10:01→11:52)
[2022-09-22 10:41] LABS: CALCIUM LEVEL 9.8 MG/DL (8.5-10.1); CREATININE FOR GFR 8.18 MG/DL (0.55-1.30); GLOMERULAR FILTRATION RATE 5.7 (>58); PHOSPHORUS LEVEL 6.6 MG/DL (2.5-4.9); POTASSIUM SERUM 4.8 MMOL/L (3.5-5.1)
[2022-09-22 12:32] VITALS: BP 108/63
[2022-09-22] MEDS ORDERED: FERRIC CARBOXYMALTOSE INJ 750 MG, VIAL MATE ADAPTER 1 EACH in NS 250 ML IV ONE ×2 (14:00→18:05)
[2022-09-22 20:00] VITALS: BP 100/58
[2022-09-22] MEDS: ATORVASTATIN 20 MG TAB PO SCH (20:49)
[2022-09-22] MEDS: traMADol 50 MG TAB PO PRN (20:49)
[2022-09-23] VITALS: BP 98/47
[2022-09-23] MEDS: SUCROFERRIC OXYHYDROXIDE 500MG CHEW TAB (VELPHORO) PO SCH ×2 (08:49→12:10)
[2022-09-23] MEDS: APIXABAN 5 MG TAB (ELIQUIS) PO SCH (08:49)
[2022-09-23] MEDS: LIDOCAINE 5% (LIDODERM) PATCH TOP SCH (08:49)
[2022-09-23 08:50] VITALS: BP 98/47
[2022-09-23] MEDS: METOPROLOL TART 25 MG TABLET PO SCH (08:50)
[2022-09-23] MEDS: (RENVELA) SEVELAMER **CARBONate** 800 MG TAB PO SCH ×2 (08:50→12:10)
[2022-09-23] MEDS: traMADol 50 MG TAB PO PRN ×2 (08:51→14:53)
[2022-09-23] MEDS: PANTOPRAZOLE 40MG TAB (PROTONIX) PO SCH (08:51)
[2022-09-23] MEDS: LIDOCAINE 5% OINT 30GM TUBE TOP SCH ×2 (08:52→12:19)
[2022-09-23] MEDS: GABAPENTIN 100 MG CAP PO SCH (08:52)
[2022-09-23 08:55] VITALS: BP 90/53
[2022-09-23] MEDS ORDERED: MIDODRINE 5 MG TAB PO ONE (10:50)
[2022-09-27 04:07] LABS: C-PEPTIDE 6.1 ng/mL (1.1-4.4); INSULIN ANTIBODY <5.0 uU/mL (.)
== END 2022-09-23 15:28 | disposition home health service (06) | DRG 377 ==
LOC: M ED 14:34 → EDBD 14:34 → M ED INP 17:24 → M PCU 17:24
PROVIDERS: ADMIT Internal Medicine; ATTEND General Practice
PROC: 5A1D70Z Performance of Urinary Filtration, Intermittent, Less than 6 Hours Per Day (ICD-10-PCS; principal; 2022-09-19)
DX: K92.2 Gastrointestinal hemorrhage, unspecified (principal); N18.6 End stage renal disease; Z68.42 Body mass index [BMI] 45.0-49.9, adult; E87.20 Acidosis, unspecified; K90.9 Intestinal malabsorption, unspecified; D62 Acute posthemorrhagic anemia; E21.2 Other hyperparathyroidism; E66.01 Morbid (severe) obesity due to excess calories; G43.909 Migraine, unspecified, not intractable, without status migrainosus; F32.A Depression, unspecified; D53.9 Nutritional anemia, unspecified; K64.8 Other hemorrhoids; I95.89 Other hypotension; K21.9 Gastro-esophageal reflux disease without esophagitis; E87.5 Hyperkalemia; M76.9 Unspecified enthesopathy, lower limb, excluding foot; D63.1 Anemia in chronic kidney disease; E78.5 Hyperlipidemia, unspecified; E87.70 Fluid overload, unspecified; G89.29 Other chronic pain; K44.9 Diaphragmatic hernia without obstruction or gangrene; E16.2 Hypoglycemia, unspecified; G47.33 Obstructive sleep apnea (adult) (pediatric); Z99.2 Dependence on renal dialysis; Z90.5 Acquired absence of kidney; Z90.49 Acquired absence of other specified parts of digestive tract; Z79.01 Long term (current) use of anticoagulants; Z98.84 Bariatric surgery status; Z79.899 Other long term (current) drug therapy; Z88.8 Allergy status to other drugs, medicaments and biological substances; Z91.158 Patient's noncompliance with renal dialysis for other reason; Z91.048 Other nonmedicinal substance allergy status

== ENCOUNTER 2022-10-11 06:00 | Inpatient (IN) | payer MEDICARE, MEDICAID ==
[~2022-10-11] VITALS: Ht 165.1 cm; Wt 140.8 kg
[~2022-10-11 06:00] MED LIST changes: +ACET650T61 PO; +ALCOPAD25 TOP; +BLOOKIT21 XX; +DEXT4TAB83 PO; +GLUC1TES2 XX; +LANC30MI XX; +PANT40TA29 PO; +SUCR1TA PO
[2022-10-11 07:14] LABS: BASO # 0.1 10^3/uL (0.0-0.2); BASO % 2.1 % (0.0-1.0); EOS # 0.4 10^3/uL (0.0-0.5); EOS % 6.3 % (0.0-3.0); HEMATOCRIT 35.7 % (36.0-47.0); HEMOGLOBIN 11.4 g/dl (12.0-15.5); LYMPH # 1.5 10^3/uL (1.5-5.0); LYMPH % 24.4 % (24.0-44.0); MEAN CORPUSCULAR HEMOGLOBIN 32.4 pg (27.0-33.0); MEAN CORPUSCULAR HGB CONC 31.9 g/dl (32.0-36.5); MEAN CORPUSCULAR VOLUME 101.4 fl (80.0-96.0); MONO # 0.5 10^3/uL (0.0-0.8); MONO % 7.5 % (2.0-8.0); NEUTROPHILS # 3.7 10^3/uL (1.5-8.5); NEUTROPHILS % 59.4 % (36.0-66.0); PLATELET COUNT, AUTOMATED 311 10^3/uL (150-450); RED BLOOD COUNT 3.52 10^6/uL (4.00-5.40); WHITE BLOOD COUNT 6.2 10^3/uL (4.0-10.0)
[2022-10-11 07:41] LABS: LIPASE 33 U/L (12-53)
[2022-10-11 07:43] LABS: CPK CREATINE PHOSPHOKINASE 72 U/L (34-145)
[2022-10-11 07:47] LABS: ALBUMIN 3.1 G/DL (3.2-5.2); ALKALINE PHOSPHATASE 83 U/L (46-116); ALT/SGPT < 9 U/L (7.0-40); AST/SGOT < 8 U/L (<34); BILIRUBIN,DIRECT 0.2 MG/DL (<0.4); BILIRUBIN,TOTAL 0.3 MG/DL (0.3-1.2); BLOOD UREA NITROGEN 50 MG/DL (9-23); CARBON DIOXIDE LEVEL 23 MMOL/L (20-31); CHLORIDE LEVEL 97 MMOL/L (98-107); CK-MB VALUE MASS < 1.0 NG/ML (<3.6); CREATININE FOR GFR 10.46 MG/DL (0.55-1.30); GLOMERULAR FILTRATION RATE 4.3 (>58); GLUCOSE, FASTING 79 MG/DL (60-100); MB/CK RELATIVE INDEX 1.38 (< OR =4); POTASSIUM SERUM 5.4 MMOL/L (3.5-5.1); SODIUM LEVEL 136 MMOL/L (136-145); THYROID STIMULATING HORMONE > 150.000 uIU/ML (0.55-4.78); TOTAL PROTEIN 6.7 G/DL (5.7-8.2)
[2022-10-11 08:13] LABS: INR 1.18; PROTHROMBIN TIME 15.3 SECONDS (12.5-14.5)
[2022-10-11 08:14] LABS: PARTIAL THROMBOPLASTIN TIME 31.2 SECONDS (24.8-34.2)
[2022-10-11 08:31] LABS: CK-MB VALUE MASS < 1.0 NG/ML (<3.6)
[2022-10-11 08:33] LABS: CPK CREATINE PHOSPHOKINASE 66 U/L (34-145); MB/CK RELATIVE INDEX 1.51 (< OR =4)
[2022-10-11] MEDS ORDERED: LIDOCAINE 1% SDV 5ML VIAL SC PRN (09:05)
[2022-10-11] MEDS ORDERED: HEPARIN 1,000UNITS/ML 10ML VIAL (FOR RADIOLOGY & DIALYSIS ONLY) IV PRN (09:05)
[2022-10-11] MEDS ORDERED: HEPARIN 1,000UNITS/ML 10ML VIAL (FOR RADIOLOGY & DIALYSIS ONLY) XX SCH (09:05)
[2022-10-11] MEDS ORDERED: SODIUM CHLORIDE 0.9% 1000ML IV PRN (09:05)
[2022-10-11 10:12] LABS: RSV AMPLIFICATION NEGATIVE (NEGATIVE)
[2022-10-11] MEDS ORDERED: ACETAMINOPHEN TAB 650MG DOSE (2X325MG) PO PRN (10:50)
[2022-10-11] MEDS ORDERED: [UNRECOGNIZED DRUG - CODE] PO (11:21)
[2022-10-11] MEDS ORDERED: VELP5CHW PO (11:21)
[2022-10-11] MEDS ORDERED: SUCR1TAB56 PO (11:21)
[2022-10-11] MEDS ORDERED: LIDO1ADH20 TOP (11:21)
[2022-10-11] MEDS ORDERED: PANT40TA29 PO (11:21)
[2022-10-11] MEDS ORDERED: RENV2TAB PO (11:21)
[2022-10-11] MEDS ORDERED: LIDO76.52 TOP (11:21)
[2022-10-11] MEDS ORDERED: HOME MED LIST COMPLETE! XX SCH (11:25)
[2022-10-11] MEDS ORDERED: LIDOCAINE 5% (LIDODERM) PATCH TD PRN (12:15)
[2022-10-11] MEDS ORDERED: LIDOCAINE 4% CREAM 5GM (LMX4) TOP PRN (12:15)
[2022-10-11] MEDS ORDERED: GLUCOSE 4GM CHEW TABLET PO PRN (12:15)
[2022-10-11] MEDS: (RENVELA) SEVELAMER **CARBONate** 800 MG TAB PO SCH ×2 (12:30→18:15)
[2022-10-11 12:40] VITALS: BP 129/77
[2022-10-11 16:34] VITALS: BP 106/74
[2022-10-11 16:48] LABS: FREE T4 0.18 NG/DL (0.89-1.76)
[2022-10-11] MEDS: ATORVASTATIN 20 MG TAB PO SCH (16:58)
[2022-10-11] MEDS: GABAPENTIN 100 MG CAP PO SCH ×2 (16:58→21:48)
[2022-10-11] MEDS: SUCRALFATE 1 GM TAB PO SCH ×2 (16:58→21:48)
[2022-10-11] MEDS ORDERED: LEVOTHYROXINE 150MCG TABLET (0.15MG) PO STA (17:18)
[2022-10-11] MEDS: SUCROFERRIC OXYHYDROXIDE 500MG CHEW TAB (VELPHORO) PO SCH (18:15)
[2022-10-11 20:14] VITALS: BP 131/64
[2022-10-11] MEDS: PANTOPRAZOLE 40MG TAB (PROTONIX) PO SCH (21:48)
[2022-10-11] MEDS: APIXABAN 5 MG TAB (ELIQUIS) PO SCH (21:48)
[2022-10-12 00:25] VITALS: BP 147/65
[2022-10-12 04:34] VITALS: BP 162/76
[2022-10-12 05:20] LABS: HEMATOCRIT 34.5 % (36.0-47.0); HEMOGLOBIN 11.2 g/dl (12.0-15.5); MEAN CORPUSCULAR HEMOGLOBIN 32.3 pg (27.0-33.0); MEAN CORPUSCULAR HGB CONC 32.5 g/dl (32.0-36.5); MEAN CORPUSCULAR VOLUME 99.4 fl (80.0-96.0); PLATELET COUNT, AUTOMATED 274 10^3/uL (150-450); RED BLOOD COUNT 3.47 10^6/uL (4.00-5.40); WHITE BLOOD COUNT 7.3 10^3/uL (4.0-10.0)
[2022-10-12 05:47] LABS: ALBUMIN 3.1 G/DL (3.2-5.2); ALKALINE PHOSPHATASE 76 U/L (46-116); ALT/SGPT < 9 U/L (7.0-40); AST/SGOT < 8 U/L (<34); BILIRUBIN,TOTAL 0.4 MG/DL (0.3-1.2); BLOOD UREA NITROGEN 29 MG/DL (9-23); CARBON DIOXIDE LEVEL 26 MMOL/L (20-31); CHLORIDE LEVEL 98 MMOL/L (98-107); CREATININE FOR GFR 7.17 MG/DL (0.55-1.30); GLOMERULAR FILTRATION RATE 6.6 (>58); GLUCOSE, FASTING 71 MG/DL (60-100); POTASSIUM SERUM 4.4 MMOL/L (3.5-5.1); SODIUM LEVEL 137 MMOL/L (136-145); TOTAL PROTEIN 6.1 G/DL (5.7-8.2)
[2022-10-12] MEDS ORDERED: SODIUM CHLORIDE 0.9% 1000ML IV PRN (06:00)
[2022-10-12] MEDS ORDERED: HEPARIN 1,000UNITS/ML 10ML VIAL (FOR RADIOLOGY & DIALYSIS ONLY) IV PRN (06:00)
[2022-10-12] MEDS ORDERED: HEPARIN 1,000UNITS/ML 10ML VIAL (FOR RADIOLOGY & DIALYSIS ONLY) XX SCH (06:00)
[2022-10-12] MEDS ORDERED: LIDOCAINE 1% SDV 5ML VIAL SC PRN (06:00)
[2022-10-12] MEDS: GABAPENTIN 100 MG CAP PO SCH ×3 (06:03→20:31)
[2022-10-12] MEDS: SUCRALFATE 1 GM TAB PO SCH ×4 (06:03→20:31)
[2022-10-12] MEDS: LEVOTHYROXINE 150MCG TABLET (0.15MG) PO SCH (06:03)
[2022-10-12] MEDS: SUCROFERRIC OXYHYDROXIDE 500MG CHEW TAB (VELPHORO) PO SCH ×4 (07:21→17:52)
[2022-10-12] MEDS: (RENVELA) SEVELAMER **CARBONate** 800 MG TAB PO SCH ×3 (07:22→17:52)
[2022-10-12] MEDS: ATORVASTATIN 20 MG TAB PO SCH (07:23)
[2022-10-12] MEDS: APIXABAN 5 MG TAB (ELIQUIS) PO SCH ×2 (07:23→20:30)
[2022-10-12] MEDS: PANTOPRAZOLE 40MG TAB (PROTONIX) PO SCH ×2 (07:23→20:28)
[2022-10-12 07:50] VITALS: BP 113/58
[2022-10-12 13:20] VITALS: BP 127/55
[2022-10-12 16:17] VITALS: BP 110/53
[2022-10-12] MEDS: traMADol 50 MG TAB PO PRN (20:31)
[2022-10-12 21:02] VITALS: BP 158/72
[2022-10-13 00:07] VITALS: BP 134/74
[2022-10-13 03:50] VITALS: BP 126/60
[2022-10-13] MEDS: traMADol 50 MG TAB PO PRN (03:57)
[2022-10-13] MEDS: LEVOTHYROXINE 150MCG TABLET (0.15MG) PO SCH (06:01)
[2022-10-13 06:35] LABS: HEMATOCRIT 35.4 % (36.0-47.0); HEMOGLOBIN 10.8 g/dl (12.0-15.5); MEAN CORPUSCULAR HEMOGLOBIN 31.6 pg (27.0-33.0); MEAN CORPUSCULAR HGB CONC 30.5 g/dl (32.0-36.5); MEAN CORPUSCULAR VOLUME 103.5 fl (80.0-96.0); PLATELET COUNT, AUTOMATED 245 10^3/uL (150-450); RED BLOOD COUNT 3.42 10^6/uL (4.00-5.40); WHITE BLOOD COUNT 6.8 10^3/uL (4.0-10.0)
[2022-10-13 06:55] LABS: ALKALINE PHOSPHATASE 73 U/L (46-116); ALT/SGPT < 9 U/L (7.0-40); AST/SGOT < 8 U/L (<34); BILIRUBIN,TOTAL 0.3 MG/DL (0.3-1.2); BLOOD UREA NITROGEN 16 MG/DL (9-23); CALCIUM LEVEL 9.6 MG/DL (8.5-10.1); CARBON DIOXIDE LEVEL 29 MMOL/L (20-31); CHLORIDE LEVEL 98 MMOL/L (98-107); CREATININE FOR GFR 5.06 MG/DL (0.55-1.30); GLOMERULAR FILTRATION RATE 9.9 (>58); GLUCOSE, FASTING 73 MG/DL (60-100); POTASSIUM SERUM 3.9 MMOL/L (3.5-5.1); SODIUM LEVEL 137 MMOL/L (136-145); TOTAL PROTEIN 6.2 G/DL (5.7-8.2)
[2022-10-13] MEDS: SUCROFERRIC OXYHYDROXIDE 500MG CHEW TAB (VELPHORO) PO SCH ×2 (08:00→11:44)
[2022-10-13] MEDS: SUCRALFATE 1 GM TAB PO SCH ×2 (08:11→11:44)
[2022-10-13] MEDS: (RENVELA) SEVELAMER **CARBONate** 800 MG TAB PO SCH ×2 (08:11→11:44)
[2022-10-13] MEDS: GABAPENTIN 100 MG CAP PO SCH (08:11)
[2022-10-13] MEDS: APIXABAN 5 MG TAB (ELIQUIS) PO SCH (08:11)
[2022-10-13] MEDS: ATORVASTATIN 20 MG TAB PO SCH (08:12)
[2022-10-13] MEDS: PANTOPRAZOLE 40MG TAB (PROTONIX) PO SCH (08:12)
[2022-10-13 08:26] VITALS: BP 125/73
[2022-10-13] MEDS ORDERED: TRAM50TA2 PO (12:02)
[2022-10-13] MEDS ORDERED: LEVO150T7 PO (12:02)
== END 2022-10-13 15:08 | DRG 308 ==
LOC: M ED 06:00 → M ED INP 10:47 → M PCU 12:37
PROVIDERS: ADMIT Internal Medicine; ATTEND Internal Medicine
PROC: 5A1D70Z Performance of Urinary Filtration, Intermittent, Less than 6 Hours Per Day (ICD-10-PCS; principal; 2022-10-11)
PROC: B246ZZZ Ultrasonography of Right and Left Heart (ICD-10-PCS; 2022-10-13)
DX: I48.92 Unspecified atrial flutter (principal); N18.6 End stage renal disease; Z68.43 Body mass index [BMI] 50.0-59.9, adult; Q61.3 Polycystic kidney, unspecified; Z99.2 Dependence on renal dialysis; K21.9 Gastro-esophageal reflux disease without esophagitis; E66.01 Morbid (severe) obesity due to excess calories; E78.5 Hyperlipidemia, unspecified; G43.909 Migraine, unspecified, not intractable, without status migrainosus; F32.A Depression, unspecified; E03.9 Hypothyroidism, unspecified; Z91.158 Patient's noncompliance with renal dialysis for other reason; E87.5 Hyperkalemia; E21.1 Secondary hyperparathyroidism, not elsewhere classified; R26.9 Unspecified abnormalities of gait and mobility; G89.29 Other chronic pain; I95.89 Other hypotension; Z98.84 Bariatric surgery status; I48.91 Unspecified atrial fibrillation; M79.605 Pain in left leg; Z86.711 Personal history of pulmonary embolism; Z86.718 Personal history of other venous thrombosis and embolism; D50.9 Iron deficiency anemia, unspecified; E83.39 Other disorders of phosphorus metabolism; Z79.01 Long term (current) use of anticoagulants; Z79.899 Other long term (current) drug therapy; Z88.8 Allergy status to other drugs, medicaments and biological substances; Z91.048 Other nonmedicinal substance allergy status; Z90.5 Acquired absence of kidney

== ENCOUNTER 2022-10-13 11:43 | Inpatient (IN) | payer MEDICARE, MEDICAID ==
[~2022-10-13] VITALS: Ht 167.6 cm; Wt 135.5 kg
[~2022-10-13 11:43] MED LIST changes: +LIDO1ADH20 TOP; +LIDO76.52 TOP; +SUCR1TAB56 PO; +[UNRECOGNIZED DRUG - CODE] PO
[2022-10-13] MEDS ORDERED: LEVO150T7 PO (12:02)
[2022-10-13] MEDS ORDERED: TRAM50TA2 PO (12:02)
[2022-10-13] MEDS ORDERED: ACETAMINOPHEN TAB 650MG DOSE (2X325MG) PO PRN (14:05)
[2022-10-13] MEDS ORDERED: BISACODYL 10MG SUPP PR PRN (14:05)
[2022-10-13] MEDS ORDERED: traMADol 50 MG TAB PO PRN (14:05)
[2022-10-13 15:10] VITALS: BP 112/68
[2022-10-13] MEDS: REMEDY PHYTOPLEX Z-GUARD PASTE 113GM TUBE (FROM STOREROOM PRODUCT) TOP SCH ×2 (16:00→20:02)
[2022-10-13] MEDS: (RENVELA) SEVELAMER **CARBONate** 800 MG TAB PO SCH (17:53)
[2022-10-13] MEDS: GABAPENTIN 100 MG CAP PO SCH ×2 (17:53→20:01)
[2022-10-13] MEDS: SUCRALFATE 1 GM TAB PO SCH ×2 (17:53→20:01)
[2022-10-13] MEDS: SUCROFERRIC OXYHYDROXIDE 500MG CHEW TAB (VELPHORO) PO SCH (17:54)
[2022-10-13 20:00] VITALS: BP 98/54
[2022-10-13] MEDS: SENNA 8.6 MG TAB (SENOKOT) PO SCH (20:01)
[2022-10-13] MEDS: APIXABAN 5 MG TAB (ELIQUIS) PO SCH (20:01)
[2022-10-13] MEDS: DOCUSATE SODIUM 100MG CAPSULE PO SCH (20:01)
[2022-10-13] MEDS: PANTOPRAZOLE 40MG TAB (PROTONIX) PO SCH (20:02)
[2022-10-14 06:00] VITALS: BP 112/55
[2022-10-14] MEDS ORDERED: LEVOTHYROXINE 150MCG TABLET (0.15MG) PO SCH (06:00)
[2022-10-14 06:39] LABS: BASO # 0.1 10^3/uL (0.0-0.2); BASO % 1.8 % (0.0-1.0); EOS # 0.6 10^3/uL (0.0-0.5); EOS % 10.2 % (0.0-3.0); HEMATOCRIT 37.1 % (36.0-47.0); HEMOGLOBIN 11.4 g/dl (12.0-15.5); LYMPH # 1.8 10^3/uL (1.5-5.0); LYMPH % 29.7 % (24.0-44.0); MEAN CORPUSCULAR HEMOGLOBIN 32.1 pg (27.0-33.0); MEAN CORPUSCULAR HGB CONC 30.7 g/dl (32.0-36.5); MEAN CORPUSCULAR VOLUME 104.5 fl (80.0-96.0); MONO # 0.8 10^3/uL (0.0-0.8); MONO % 13.1 % (2.0-8.0); NEUTROPHILS # 2.8 10^3/uL (1.5-8.5); PLATELET COUNT, AUTOMATED 271 10^3/uL (150-450); RED BLOOD COUNT 3.55 10^6/uL (4.00-5.40); WHITE BLOOD COUNT 6.2 10^3/uL (4.0-10.0)
[2022-10-14 07:13] LABS: ALKALINE PHOSPHATASE 73 U/L (46-116); ALT/SGPT < 9 U/L (7.0-40); AST/SGOT 8 U/L (<34); BILIRUBIN,TOTAL 0.3 MG/DL (0.3-1.2); BLOOD UREA NITROGEN 25 MG/DL (9-23); CALCIUM LEVEL 9.7 MG/DL (8.5-10.1); CARBON DIOXIDE LEVEL 27 MMOL/L (20-31); CHLORIDE LEVEL 99 MMOL/L (98-107); CREATININE FOR GFR 6.27 MG/DL (0.55-1.30); GLOMERULAR FILTRATION RATE 7.7 (>58); GLUCOSE, FASTING 71 MG/DL (60-100); POTASSIUM SERUM 4.5 MMOL/L (3.5-5.1); SODIUM LEVEL 139 MMOL/L (136-145); TOTAL PROTEIN 6.2 G/DL (5.7-8.2)
[2022-10-14] MEDS ORDERED: HEPARIN 1,000UNITS/ML 10ML VIAL (FOR RADIOLOGY & DIALYSIS ONLY) XX SCH (08:30)
[2022-10-14] MEDS ORDERED: HEPARIN 1,000UNITS/ML 10ML VIAL (FOR RADIOLOGY & DIALYSIS ONLY) IV PRN (08:30)
[2022-10-14] MEDS ORDERED: SODIUM CHLORIDE 0.9% 1000ML IV PRN (08:30)
[2022-10-14] MEDS ORDERED: LIDOCAINE 1% SDV 5ML VIAL SC PRN (08:30)
[2022-10-14] MEDS ORDERED: DULoxetine 20MG CAP (CYMBALTA) PO SCH (09:00)
[2022-10-14] MEDS: REMEDY PHYTOPLEX Z-GUARD PASTE 113GM TUBE (FROM STOREROOM PRODUCT) TOP SCH ×3 (09:00→20:08)
[2022-10-14] MEDS: (RENVELA) SEVELAMER **CARBONate** 800 MG TAB PO SCH ×3 (09:09→18:05)
[2022-10-14] MEDS: APIXABAN 5 MG TAB (ELIQUIS) PO SCH ×2 (09:10→20:09)
[2022-10-14] MEDS: PANTOPRAZOLE 40MG TAB (PROTONIX) PO SCH ×2 (09:10→20:09)
[2022-10-14] MEDS: SUCROFERRIC OXYHYDROXIDE 500MG CHEW TAB (VELPHORO) PO SCH ×3 (09:10→18:00)
[2022-10-14] MEDS: GABAPENTIN 100 MG CAP PO SCH ×3 (09:10→20:09)
[2022-10-14] MEDS: DOCUSATE SODIUM 100MG CAPSULE PO SCH ×2 (09:10→20:09)
[2022-10-14] MEDS: SUCRALFATE 1 GM TAB PO SCH ×4 (09:10→20:09)
[2022-10-14] MEDS: ATORVASTATIN 20 MG TAB PO SCH (09:10)
[2022-10-14] MEDS: LIDOCAINE 5% (LIDODERM) PATCH TD SCH (11:16)
[2022-10-14] MEDS: DICLOFENAC EPOLAMINE 1.3% PATCH TOP SCH ×2 (11:17→20:09)
[2022-10-14] MEDS: oxyCODONE 5MG TAB PO PRN (18:12)
[2022-10-14 18:41] VITALS: BP 128/69
[2022-10-14 20:00] VITALS: BP 106/64
[2022-10-14] MEDS: SENNA 8.6 MG TAB (SENOKOT) PO SCH (20:09)
[2022-10-14] MEDS ORDERED: LIDOCAINE 5% (LIDODERM) PATCH TD SCH (21:00)
[2022-10-15] MEDS: oxyCODONE 5MG TAB PO PRN ×5 (00:35→21:29)
[2022-10-15] MEDS: LEVOTHYROXINE 100MCG TABLET (0.1MG) PO SCH (05:40)
[2022-10-15 06:00] VITALS: BP 101/52
[2022-10-15] MEDS: ATORVASTATIN 20 MG TAB PO SCH (07:19)
[2022-10-15] MEDS: (RENVELA) SEVELAMER **CARBONate** 800 MG TAB PO SCH ×3 (07:20→17:25)
[2022-10-15] MEDS: DICLOFENAC EPOLAMINE 1.3% PATCH TOP SCH ×2 (07:20→21:29)
[2022-10-15] MEDS: GABAPENTIN 100 MG CAP PO SCH ×3 (07:20→21:28)
[2022-10-15] MEDS: DOCUSATE SODIUM 100MG CAPSULE PO SCH ×2 (07:20→21:29)
[2022-10-15] MEDS: SUCRALFATE 1 GM TAB PO SCH ×4 (07:20→21:28)
[2022-10-15] MEDS: PANTOPRAZOLE 40MG TAB (PROTONIX) PO SCH ×2 (07:20→21:28)
[2022-10-15] MEDS: APIXABAN 5 MG TAB (ELIQUIS) PO SCH ×2 (07:20→21:28)
[2022-10-15] MEDS: DULoxetine 20MG CAP (CYMBALTA) PO SCH (07:20)
[2022-10-15] MEDS: REMEDY PHYTOPLEX Z-GUARD PASTE 113GM TUBE (FROM STOREROOM PRODUCT) TOP SCH ×3 (07:21→21:00)
[2022-10-15] MEDS: LIDOCAINE 5% (LIDODERM) PATCH TD SCH (07:21)
[2022-10-15] MEDS: SUCROFERRIC OXYHYDROXIDE 500MG CHEW TAB (VELPHORO) PO SCH ×3 (07:21→17:27)
[2022-10-15 14:00] VITALS: BP 103/55
[2022-10-15 20:00] VITALS: BP_SYST 117; BP_SYST 90; BP_DIAS 53; BP_DIAS 73
[2022-10-15] MEDS: SENNA 8.6 MG TAB (SENOKOT) PO SCH (21:28)
[2022-10-16] MEDS: LEVOTHYROXINE 100MCG TABLET (0.1MG) PO SCH (05:41)
[2022-10-16 06:00] VITALS: BP 90/55
[2022-10-16] MEDS: SUCROFERRIC OXYHYDROXIDE 500MG CHEW TAB (VELPHORO) PO SCH ×3 (07:47→17:01)
[2022-10-16 08:45] VITALS: BP 105/53
[2022-10-16] MEDS: SUCRALFATE 1 GM TAB PO SCH ×4 (08:45→19:47)
[2022-10-16] MEDS: DICLOFENAC EPOLAMINE 1.3% PATCH TOP SCH ×2 (08:46→19:47)
[2022-10-16] MEDS: APIXABAN 5 MG TAB (ELIQUIS) PO SCH ×2 (08:46→19:46)
[2022-10-16] MEDS: PANTOPRAZOLE 40MG TAB (PROTONIX) PO SCH ×2 (08:46→19:46)
[2022-10-16] MEDS: ATORVASTATIN 20 MG TAB PO SCH ×2 (08:46→19:46)
[2022-10-16] MEDS: (RENVELA) SEVELAMER **CARBONate** 800 MG TAB PO SCH ×3 (08:46→17:00)
[2022-10-16] MEDS: DULoxetine 20MG CAP (CYMBALTA) PO SCH (08:46)
[2022-10-16] MEDS: GABAPENTIN 100 MG CAP PO SCH ×3 (08:46→19:46)
[2022-10-16] MEDS: DOCUSATE SODIUM 100MG CAPSULE PO SCH ×2 (08:46→19:47)
[2022-10-16] MEDS: REMEDY PHYTOPLEX Z-GUARD PASTE 113GM TUBE (FROM STOREROOM PRODUCT) TOP SCH ×3 (08:47→19:48)
[2022-10-16] MEDS: LIDOCAINE 5% (LIDODERM) PATCH TD SCH (08:47)
[2022-10-16] MEDS: oxyCODONE 5MG TAB PO PRN ×2 (08:51→14:16)
[2022-10-16 14:00] VITALS: BP 95/50
[2022-10-16] MEDS: SENNA 8.6 MG TAB (SENOKOT) PO SCH (19:47)
[2022-10-16 20:00] VITALS: BP 92/60
[2022-10-17] MEDS: LEVOTHYROXINE 100MCG TABLET (0.1MG) PO SCH (05:51)
[2022-10-17 06:00] VITALS: BP 95/54
[2022-10-17 07:14] LABS: BASO # 0.1 10^3/uL (0.0-0.2); BASO % 1.7 % (0.0-1.0); EOS # 0.7 10^3/uL (0.0-0.5); EOS % 10.2 % (0.0-3.0); HEMOGLOBIN 10.4 g/dl (12.0-15.5); LYMPH # 1.8 10^3/uL (1.5-5.0); LYMPH % 25.1 % (24.0-44.0); MEAN CORPUSCULAR HEMOGLOBIN 31.7 pg (27.0-33.0); MEAN CORPUSCULAR HGB CONC 30.6 g/dl (32.0-36.5); MEAN CORPUSCULAR VOLUME 103.7 fl (80.0-96.0); MONO # 0.9 10^3/uL (0.0-0.8); MONO % 13.2 % (2.0-8.0); NEUTROPHILS # 3.5 10^3/uL (1.5-8.5); NEUTROPHILS % 49.7 % (36.0-66.0); PLATELET COUNT, AUTOMATED 276 10^3/uL (150-450); RED BLOOD COUNT 3.28 10^6/uL (4.00-5.40)
[2022-10-17] MEDS: REMEDY PHYTOPLEX Z-GUARD PASTE 113GM TUBE (FROM STOREROOM PRODUCT) TOP SCH ×3 (07:33→21:00)
[2022-10-17] MEDS: SUCROFERRIC OXYHYDROXIDE 500MG CHEW TAB (VELPHORO) PO SCH ×3 (07:33→16:37)
[2022-10-17 07:53] LABS: CALCIUM LEVEL 9.9 MG/DL (8.5-10.1); CREATININE FOR GFR 7.3 MG/DL (0.55-1.30); GLOMERULAR FILTRATION RATE 6.5 (>58); POTASSIUM SERUM 4.6 MMOL/L (3.5-5.1)
[2022-10-17] MEDS: LIDOCAINE 5% (LIDODERM) PATCH TD SCH (08:25)
[2022-10-17] MEDS: SUCRALFATE 1 GM TAB PO SCH ×4 (08:26→21:28)
[2022-10-17] MEDS: APIXABAN 5 MG TAB (ELIQUIS) PO SCH ×2 (08:26→21:28)
[2022-10-17] MEDS: PANTOPRAZOLE 40MG TAB (PROTONIX) PO SCH ×2 (08:26→21:29)
[2022-10-17] MEDS: DICLOFENAC EPOLAMINE 1.3% PATCH TOP SCH ×2 (08:26→21:29)
[2022-10-17] MEDS: (RENVELA) SEVELAMER **CARBONate** 800 MG TAB PO SCH ×3 (08:27→18:38)
[2022-10-17] MEDS: DULoxetine 20MG CAP (CYMBALTA) PO SCH (08:27)
[2022-10-17] MEDS: GABAPENTIN 100 MG CAP PO SCH ×3 (08:27→21:29)
[2022-10-17] MEDS: DOCUSATE SODIUM 100MG CAPSULE PO SCH ×2 (08:27→21:28)
[2022-10-17] MEDS: oxyCODONE 5MG TAB PO PRN ×2 (09:14→21:29)
[2022-10-17] MEDS ORDERED: LIDOCAINE 1% SDV 5ML VIAL SC PRN (09:30)
[2022-10-17] MEDS ORDERED: HEPARIN 1,000UNITS/ML 10ML VIAL (FOR RADIOLOGY & DIALYSIS ONLY) IV PRN (09:30)
[2022-10-17] MEDS ORDERED: HEPARIN 1,000UNITS/ML 10ML VIAL (FOR RADIOLOGY & DIALYSIS ONLY) XX SCH (09:30)
[2022-10-17] MEDS ORDERED: SODIUM CHLORIDE 0.9% 1000ML IV PRN (09:30)
[2022-10-17 09:59] LABS: PHOSPHORUS LEVEL 6.8 MG/DL (2.5-4.9)
[2022-10-17 18:00] VITALS: BP 106/56
[2022-10-17 20:00] VITALS: BP 108/55
[2022-10-17] MEDS: SENNA 8.6 MG TAB (SENOKOT) PO SCH (21:28)
[2022-10-18] MEDS: LEVOTHYROXINE 100MCG TABLET (0.1MG) PO SCH (05:39)
[2022-10-18 06:00] VITALS: BP 100/53
[2022-10-18] MEDS: SUCROFERRIC OXYHYDROXIDE 500MG CHEW TAB (VELPHORO) PO SCH ×3 (07:56→16:37)
[2022-10-18] MEDS: REMEDY PHYTOPLEX Z-GUARD PASTE 113GM TUBE (FROM STOREROOM PRODUCT) TOP SCH ×3 (07:57→20:56)
[2022-10-18] MEDS: (RENVELA) SEVELAMER **CARBONate** 800 MG TAB PO SCH ×3 (08:37→17:32)
[2022-10-18] MEDS: ATORVASTATIN 20 MG TAB PO SCH (08:37)
[2022-10-18] MEDS: DULoxetine 20MG CAP (CYMBALTA) PO SCH (08:38)
[2022-10-18] MEDS: APIXABAN 5 MG TAB (ELIQUIS) PO SCH ×2 (08:38→20:55)
[2022-10-18] MEDS: SUCRALFATE 1 GM TAB PO SCH ×4 (08:38→20:55)
[2022-10-18] MEDS: GABAPENTIN 100 MG CAP PO SCH ×3 (08:38→20:56)
[2022-10-18] MEDS: DOCUSATE SODIUM 100MG CAPSULE PO SCH ×2 (08:38→20:55)
[2022-10-18] MEDS: PANTOPRAZOLE 40MG TAB (PROTONIX) PO SCH ×2 (08:38→20:56)
[2022-10-18] MEDS: oxyCODONE 5MG TAB PO PRN ×2 (08:39→16:05)
[2022-10-18] MEDS: DICLOFENAC EPOLAMINE 1.3% PATCH TOP SCH ×2 (08:39→20:56)
[2022-10-18] MEDS: LIDOCAINE 5% (LIDODERM) PATCH TD SCH (08:40)
[2022-10-18 14:00] VITALS: BP 96/50
[2022-10-18] MEDS ORDERED: FLEET ENEMA PR ONE (16:30)
[2022-10-18 20:00] VITALS: BP 120/58
[2022-10-18] MEDS: ANALGESIC BALM CRM 3OZ TOP SCH (20:56)
[2022-10-18] MEDS: SENNA 8.6 MG TAB (SENOKOT) PO SCH (20:56)
[2022-10-19 06:00] VITALS: BP 90/55
[2022-10-19] MEDS: LEVOTHYROXINE 100MCG TABLET (0.1MG) PO SCH (06:28)
[2022-10-19] MEDS: oxyCODONE 5MG TAB PO SCH ×3 (06:28→15:00)
[2022-10-19 07:26] LABS: BASO # 0.1 10^3/uL (0.0-0.2); BASO % 1.7 % (0.0-1.0); EOS # 0.6 10^3/uL (0.0-0.5); HEMATOCRIT 33.8 % (36.0-47.0); HEMOGLOBIN 10.7 g/dl (12.0-15.5); LYMPH # 1.5 10^3/uL (1.5-5.0); LYMPH % 28.1 % (24.0-44.0); MEAN CORPUSCULAR HEMOGLOBIN 32.7 pg (27.0-33.0); MEAN CORPUSCULAR HGB CONC 31.7 g/dl (32.0-36.5); MEAN CORPUSCULAR VOLUME 103.4 fl (80.0-96.0); MONO # 0.7 10^3/uL (0.0-0.8); MONO % 13.2 % (2.0-8.0); NEUTROPHILS # 2.5 10^3/uL (1.5-8.5); NEUTROPHILS % 45.8 % (36.0-66.0); PLATELET COUNT, AUTOMATED 231 10^3/uL (150-450); RED BLOOD COUNT 3.27 10^6/uL (4.00-5.40); WHITE BLOOD COUNT 5.4 10^3/uL (4.0-10.0)
[2022-10-19] MEDS: SUCROFERRIC OXYHYDROXIDE 500MG CHEW TAB (VELPHORO) PO SCH ×3 (07:33→17:17)
[2022-10-19] MEDS: ATORVASTATIN 20 MG TAB PO SCH (07:37)
[2022-10-19] MEDS: (RENVELA) SEVELAMER **CARBONate** 800 MG TAB PO SCH ×3 (07:37→17:14)
[2022-10-19] MEDS: GABAPENTIN 100 MG CAP PO SCH ×3 (07:37→20:04)
[2022-10-19] MEDS: PANTOPRAZOLE 40MG TAB (PROTONIX) PO SCH ×2 (07:37→20:04)
[2022-10-19] MEDS: DOCUSATE SODIUM 100MG CAPSULE PO SCH ×2 (07:37→20:04)
[2022-10-19] MEDS: APIXABAN 5 MG TAB (ELIQUIS) PO SCH ×2 (07:37→20:04)
[2022-10-19] MEDS: DULoxetine 20MG CAP (CYMBALTA) PO SCH (07:37)
[2022-10-19] MEDS: SUCRALFATE 1 GM TAB PO SCH ×4 (07:37→20:04)
[2022-10-19] MEDS: LIDOCAINE 5% (LIDODERM) PATCH TD SCH (07:38)
[2022-10-19] MEDS: ANALGESIC BALM CRM 3OZ TOP SCH ×2 (07:38→20:05)
[2022-10-19] MEDS: DICLOFENAC EPOLAMINE 1.3% PATCH TOP SCH ×2 (07:38→20:04)
[2022-10-19] MEDS: REMEDY PHYTOPLEX Z-GUARD PASTE 113GM TUBE (FROM STOREROOM PRODUCT) TOP SCH ×3 (07:39→19:58)
[2022-10-19] MEDS ORDERED: HEPARIN 1,000UNITS/ML 10ML VIAL (FOR RADIOLOGY & DIALYSIS ONLY) XX SCH (07:50)
[2022-10-19] MEDS ORDERED: SODIUM CHLORIDE 0.9% 1000ML IV PRN (07:50)
[2022-10-19] MEDS ORDERED: LIDOCAINE 1% SDV 5ML VIAL SC PRN (07:50)
[2022-10-19] MEDS ORDERED: HEPARIN 1,000UNITS/ML 10ML VIAL (FOR RADIOLOGY & DIALYSIS ONLY) IV PRN (07:50)
[2022-10-19 08:12] LABS: CREATININE FOR GFR 6.87 MG/DL (0.55-1.30); GLOMERULAR FILTRATION RATE 6.9 (>58); POTASSIUM SERUM 4.7 MMOL/L (3.5-5.1)
[2022-10-19 08:24] LABS: PHOSPHORUS LEVEL 5.5 MG/DL (2.5-4.9)
[2022-10-19] MEDS ORDERED: BISACODYL 5MG TAB PO SCH (09:00)
[2022-10-19] MEDS ORDERED: BISACODYL 5MG TAB PO ONE (10:55)
[2022-10-19] MEDS: SIMETHICONE 80MG CHEW TAB PO SCH ×3 (11:36→20:04)
[2022-10-19] MEDS: predniSONE 5 MG TAB PO SCH ×2 (11:36→20:04)
[2022-10-19 18:00] VITALS: BP 120/60
[2022-10-19 20:00] VITALS: BP 106/50
[2022-10-19] MEDS: SENNA 8.6 MG TAB (SENOKOT) PO SCH (20:04)
[2022-10-19] MEDS: oxyCODONE 5MG TAB PO PRN (20:05)
[2022-10-20 06:00] VITALS: BP 114/56
[2022-10-20] MEDS: LEVOTHYROXINE 100MCG TABLET (0.1MG) PO SCH (06:06)
[2022-10-20] MEDS: oxyCODONE 5MG TAB PO SCH ×3 (06:07→15:00)
[2022-10-20] MEDS: PANTOPRAZOLE 40MG TAB (PROTONIX) PO SCH ×2 (07:25→20:09)
[2022-10-20] MEDS: SUCRALFATE 1 GM TAB PO SCH ×4 (07:25→20:08)
[2022-10-20] MEDS: BISACODYL 5MG TAB PO SCH (07:25)
[2022-10-20] MEDS: (RENVELA) SEVELAMER **CARBONate** 800 MG TAB PO SCH ×3 (07:25→17:00)
[2022-10-20] MEDS: predniSONE 5 MG TAB PO SCH ×2 (07:25→20:09)
[2022-10-20] MEDS: SIMETHICONE 80MG CHEW TAB PO SCH ×3 (07:25→20:09)
[2022-10-20] MEDS: DULoxetine 20MG CAP (CYMBALTA) PO SCH (07:25)
[2022-10-20] MEDS: APIXABAN 5 MG TAB (ELIQUIS) PO SCH ×2 (07:25→20:08)
[2022-10-20] MEDS: GABAPENTIN 100 MG CAP PO SCH ×3 (07:25→20:08)
[2022-10-20] MEDS: DOCUSATE SODIUM 100MG CAPSULE PO SCH ×2 (07:25→20:08)
[2022-10-20] MEDS: ATORVASTATIN 20 MG TAB PO SCH (07:25)
[2022-10-20] MEDS: DICLOFENAC EPOLAMINE 1.3% PATCH TOP SCH ×2 (07:27→20:09)
[2022-10-20] MEDS: SUCROFERRIC OXYHYDROXIDE 500MG CHEW TAB (VELPHORO) PO SCH ×3 (07:27→17:00)
[2022-10-20] MEDS: LIDOCAINE 5% (LIDODERM) PATCH TD SCH (07:27)
[2022-10-20] MEDS: REMEDY PHYTOPLEX Z-GUARD PASTE 113GM TUBE (FROM STOREROOM PRODUCT) TOP SCH ×3 (07:28→20:10)
[2022-10-20] MEDS: ANALGESIC BALM CRM 3OZ TOP SCH ×2 (07:28→20:09)
[2022-10-20 14:00] VITALS: BP 102/49
[2022-10-20 20:00] VITALS: BP 93/54
[2022-10-20] MEDS: SENNA 8.6 MG TAB (SENOKOT) PO SCH (20:08)
[2022-10-21 06:00] VITALS: BP 122/55
[2022-10-21] MEDS: LEVOTHYROXINE 100MCG TABLET (0.1MG) PO SCH (06:15)
[2022-10-21] MEDS: oxyCODONE 5MG TAB PO SCH ×4 (06:15→15:00)
[2022-10-21] MEDS ORDERED: SODIUM CHLORIDE 0.9% 1000ML IV PRN (07:50)
[2022-10-21] MEDS ORDERED: HEPARIN 1,000UNITS/ML 10ML VIAL (FOR RADIOLOGY & DIALYSIS ONLY) IV PRN (07:50)
[2022-10-21] MEDS ORDERED: HEPARIN 1,000UNITS/ML 10ML VIAL (FOR RADIOLOGY & DIALYSIS ONLY) XX SCH (07:50)
[2022-10-21] MEDS ORDERED: LIDOCAINE 1% SDV 5ML VIAL SC PRN (07:50)
[2022-10-21 08:11] LABS: BASO # 0.1 10^3/uL (0.0-0.2); BASO % 1.3 % (0.0-1.0); EOS # 0.1 10^3/uL (0.0-0.5); EOS % 2.1 % (0.0-3.0); HEMATOCRIT 33.6 % (36.0-47.0); HEMOGLOBIN 10.4 g/dl (12.0-15.5); LYMPH # 1.2 10^3/uL (1.5-5.0); LYMPH % 25.5 % (24.0-44.0); MEAN CORPUSCULAR HEMOGLOBIN 32.1 pg (27.0-33.0); MEAN CORPUSCULAR VOLUME 103.7 fl (80.0-96.0); MONO # 0.5 10^3/uL (0.0-0.8); MONO % 10.5 % (2.0-8.0); NEUTROPHILS # 2.9 10^3/uL (1.5-8.5); NEUTROPHILS % 60.4 % (36.0-66.0); PLATELET COUNT, AUTOMATED 229 10^3/uL (150-450); RED BLOOD COUNT 3.24 10^6/uL (4.00-5.40); WHITE BLOOD COUNT 4.8 10^3/uL (4.0-10.0)
[2022-10-21 08:46] LABS: CALCIUM LEVEL 10.2 MG/DL (8.5-10.1); CREATININE FOR GFR 6.48 MG/DL (0.55-1.30); GLOMERULAR FILTRATION RATE 7.4 (>58); POTASSIUM SERUM 4.7 MMOL/L (3.5-5.1)
[2022-10-21] MEDS: BISACODYL 5MG TAB PO SCH (09:00)
[2022-10-21] MEDS: DOCUSATE SODIUM 100MG CAPSULE PO SCH ×2 (09:00→20:41)
[2022-10-21] MEDS: REMEDY PHYTOPLEX Z-GUARD PASTE 113GM TUBE (FROM STOREROOM PRODUCT) TOP SCH ×3 (09:00→20:42)
[2022-10-21] MEDS: (RENVELA) SEVELAMER **CARBONate** 800 MG TAB PO SCH ×4 (09:25→18:02)
[2022-10-21] MEDS: SIMETHICONE 80MG CHEW TAB PO SCH ×3 (09:25→20:41)
[2022-10-21] MEDS: predniSONE 5 MG TAB PO SCH ×2 (09:25→20:40)
[2022-10-21] MEDS: GABAPENTIN 100 MG CAP PO SCH ×3 (09:25→20:41)
[2022-10-21] MEDS: ATORVASTATIN 20 MG TAB PO SCH (09:25)
[2022-10-21] MEDS: PANTOPRAZOLE 40MG TAB (PROTONIX) PO SCH ×2 (09:25→20:41)
[2022-10-21] MEDS: APIXABAN 5 MG TAB (ELIQUIS) PO SCH ×2 (09:25→20:41)
[2022-10-21] MEDS: SUCRALFATE 1 GM TAB PO SCH ×5 (09:25→20:40)
[2022-10-21] MEDS: SUCROFERRIC OXYHYDROXIDE 500MG CHEW TAB (VELPHORO) PO SCH ×3 (09:26→18:00)
[2022-10-21] MEDS: DULoxetine 20MG CAP (CYMBALTA) PO SCH (09:26)
[2022-10-21] MEDS: LIDOCAINE 5% (LIDODERM) PATCH TD SCH (09:27)
[2022-10-21] MEDS: DICLOFENAC EPOLAMINE 1.3% PATCH TOP SCH ×2 (09:27→20:41)
[2022-10-21] MEDS: ANALGESIC BALM CRM 3OZ TOP SCH ×2 (09:30→20:42)
[2022-10-21 16:00] VITALS: BP 95/51
[2022-10-21] MEDS: oxyCODONE 5MG TAB PO PRN (18:24)
[2022-10-21 19:41] VITALS: BP 109/69
[2022-10-21] MEDS: SENNA 8.6 MG TAB (SENOKOT) PO SCH (20:41)
[2022-10-22] MEDS: oxyCODONE 5MG TAB PO PRN (03:14)
[2022-10-22 05:19] VITALS: BP 111/59
[2022-10-22] MEDS: LEVOTHYROXINE 100MCG TABLET (0.1MG) PO SCH (06:10)
[2022-10-22] MEDS: oxyCODONE 5MG TAB PO SCH ×3 (06:10→15:20)
[2022-10-22] MEDS: BISACODYL 5MG TAB PO SCH (07:28)
[2022-10-22] MEDS: REMEDY PHYTOPLEX Z-GUARD PASTE 113GM TUBE (FROM STOREROOM PRODUCT) TOP SCH ×3 (09:00→19:56)
[2022-10-22] MEDS: SIMETHICONE 80MG CHEW TAB PO SCH ×3 (09:25→19:55)
[2022-10-22] MEDS: SUCRALFATE 1 GM TAB PO SCH ×4 (09:25→19:55)
[2022-10-22] MEDS: APIXABAN 5 MG TAB (ELIQUIS) PO SCH ×2 (09:26→19:56)
[2022-10-22] MEDS: GABAPENTIN 100 MG CAP PO SCH ×3 (09:26→19:55)
[2022-10-22] MEDS: DULoxetine 20MG CAP (CYMBALTA) PO SCH (09:26)
[2022-10-22] MEDS: DOCUSATE SODIUM 100MG CAPSULE PO SCH ×2 (09:26→19:57)
[2022-10-22] MEDS: (RENVELA) SEVELAMER **CARBONate** 800 MG TAB PO SCH ×3 (09:26→17:42)
[2022-10-22] MEDS: PANTOPRAZOLE 40MG TAB (PROTONIX) PO SCH ×2 (09:26→19:55)
[2022-10-22] MEDS: ATORVASTATIN 20 MG TAB PO SCH (09:26)
[2022-10-22] MEDS: SUCROFERRIC OXYHYDROXIDE 500MG CHEW TAB (VELPHORO) PO SCH ×3 (09:26→17:42)
[2022-10-22] MEDS: predniSONE 5 MG TAB PO SCH ×2 (09:26→19:55)
[2022-10-22] MEDS: ANALGESIC BALM CRM 3OZ TOP SCH ×2 (09:27→19:56)
[2022-10-22] MEDS: DICLOFENAC EPOLAMINE 1.3% PATCH TOP SCH ×2 (09:28→19:56)
[2022-10-22] MEDS: LIDOCAINE 5% (LIDODERM) PATCH TD SCH (09:28)
[2022-10-22 14:00] VITALS: BP 113/62
[2022-10-22] MEDS ORDERED: ONDANSETRON 4MG TAB PO ONE (18:15)
[2022-10-22] MEDS: SENNA 8.6 MG TAB (SENOKOT) PO SCH (19:56)
[2022-10-22 20:00] VITALS: BP 107/53
[2022-10-23] MEDS: LEVOTHYROXINE 100MCG TABLET (0.1MG) PO SCH (05:53)
[2022-10-23 06:00] VITALS: BP 114/53
[2022-10-23] MEDS: SUCROFERRIC OXYHYDROXIDE 500MG CHEW TAB (VELPHORO) PO SCH ×3 (06:38→17:48)
[2022-10-23] MEDS: SUCRALFATE 1 GM TAB PO SCH ×4 (06:45→21:04)
[2022-10-23] MEDS: (RENVELA) SEVELAMER **CARBONate** 800 MG TAB PO SCH ×3 (06:45→17:48)
[2022-10-23] MEDS: oxyCODONE 5MG TAB PO SCH ×3 (06:46→15:42)
[2022-10-23] MEDS: REMEDY PHYTOPLEX Z-GUARD PASTE 113GM TUBE (FROM STOREROOM PRODUCT) TOP SCH ×3 (09:00→21:00)
[2022-10-23] MEDS: SIMETHICONE 80MG CHEW TAB PO SCH ×3 (09:13→21:05)
[2022-10-23] MEDS: ATORVASTATIN 20 MG TAB PO SCH (09:13)
[2022-10-23] MEDS: APIXABAN 5 MG TAB (ELIQUIS) PO SCH ×2 (09:13→21:05)
[2022-10-23] MEDS: DULoxetine 20MG CAP (CYMBALTA) PO SCH (09:13)
[2022-10-23] MEDS: PANTOPRAZOLE 40MG TAB (PROTONIX) PO SCH ×2 (09:13→21:05)
[2022-10-23] MEDS: GABAPENTIN 100 MG CAP PO SCH ×3 (09:13→21:04)
[2022-10-23] MEDS: DOCUSATE SODIUM 100MG CAPSULE PO SCH ×2 (09:13→21:04)
[2022-10-23] MEDS: BISACODYL 5MG TAB PO SCH (09:13)
[2022-10-23] MEDS: predniSONE 5 MG TAB PO SCH ×2 (09:13→21:04)
[2022-10-23] MEDS: LIDOCAINE 5% (LIDODERM) PATCH TD SCH (09:14)
[2022-10-23] MEDS: DICLOFENAC EPOLAMINE 1.3% PATCH TOP SCH ×2 (09:14→21:05)
[2022-10-23] MEDS: ANALGESIC BALM CRM 3OZ TOP SCH ×2 (09:15→21:08)
[2022-10-23 14:03] VITALS: BP_SYST 91; BP_SYST 96; BP_DIAS 44
[2022-10-23 20:00] VITALS: BP 98/50
[2022-10-23] MEDS: SENNA 8.6 MG TAB (SENOKOT) PO SCH (21:05)
[2022-10-24 06:00] VITALS: BP 103/54
[2022-10-24] MEDS ORDERED: HEPARIN 1,000UNITS/ML 10ML VIAL (FOR RADIOLOGY & DIALYSIS ONLY) XX SCH (06:00)
[2022-10-24] MEDS ORDERED: LIDOCAINE 1% SDV 5ML VIAL SC PRN (06:00)
[2022-10-24] MEDS ORDERED: HEPARIN 1,000UNITS/ML 10ML VIAL (FOR RADIOLOGY & DIALYSIS ONLY) IV PRN (06:00)
[2022-10-24] MEDS ORDERED: SODIUM CHLORIDE 0.9% 1000ML IV PRN (06:00)
[2022-10-24] MEDS: oxyCODONE 5MG TAB PO SCH ×3 (06:09→15:00)
[2022-10-24] MEDS: LEVOTHYROXINE 100MCG TABLET (0.1MG) PO SCH (06:10)
[2022-10-24 07:14] LABS: BASO % 0.6 % (0.0-1.0); EOS # 0.1 10^3/uL (0.0-0.5); HEMATOCRIT 34.2 % (36.0-47.0); HEMOGLOBIN 10.6 g/dl (12.0-15.5); LYMPH # 1.4 10^3/uL (1.5-5.0); MEAN CORPUSCULAR HEMOGLOBIN 32.6 pg (27.0-33.0); MEAN CORPUSCULAR VOLUME 105.2 fl (80.0-96.0); MONO # 0.6 10^3/uL (0.0-0.8); MONO % 9.3 % (2.0-8.0); NEUTROPHILS # 4.1 10^3/uL (1.5-8.5); NEUTROPHILS % 65.8 % (36.0-66.0); PLATELET COUNT, AUTOMATED 225 10^3/uL (150-450); RED BLOOD COUNT 3.25 10^6/uL (4.00-5.40); WHITE BLOOD COUNT 6.3 10^3/uL (4.0-10.0)
[2022-10-24 07:35] LABS: CALCIUM LEVEL 10.5 MG/DL (8.5-10.1); CREATININE FOR GFR 7.02 MG/DL (0.55-1.30); GLOMERULAR FILTRATION RATE 6.8 (>58); POTASSIUM SERUM 5.2 MMOL/L (3.5-5.1)
[2022-10-24] MEDS: SUCROFERRIC OXYHYDROXIDE 500MG CHEW TAB (VELPHORO) PO SCH ×3 (08:00→16:58)
[2022-10-24] MEDS: ANALGESIC BALM CRM 3OZ TOP SCH ×2 (09:00→19:51)
[2022-10-24] MEDS: REMEDY PHYTOPLEX Z-GUARD PASTE 113GM TUBE (FROM STOREROOM PRODUCT) TOP SCH ×3 (09:00→19:50)
[2022-10-24] MEDS: DOCUSATE SODIUM 100MG CAPSULE PO SCH ×2 (09:09→19:47)
[2022-10-24] MEDS: (RENVELA) SEVELAMER **CARBONate** 800 MG TAB PO SCH ×3 (09:09→17:01)
[2022-10-24] MEDS: SUCRALFATE 1 GM TAB PO SCH ×4 (09:09→19:47)
[2022-10-24] MEDS: DULoxetine 20MG CAP (CYMBALTA) PO SCH (09:09)
[2022-10-24] MEDS: predniSONE 5 MG TAB PO SCH ×2 (09:10→19:47)
[2022-10-24] MEDS: LIDOCAINE 5% (LIDODERM) PATCH TD SCH (09:10)
[2022-10-24] MEDS: BISACODYL 5MG TAB PO SCH (09:10)
[2022-10-24] MEDS: GABAPENTIN 100 MG CAP PO SCH ×3 (09:10→19:50)
[2022-10-24] MEDS: PANTOPRAZOLE 40MG TAB (PROTONIX) PO SCH ×2 (09:10→19:47)
[2022-10-24] MEDS: APIXABAN 5 MG TAB (ELIQUIS) PO SCH ×2 (09:10→19:47)
[2022-10-24] MEDS: DICLOFENAC EPOLAMINE 1.3% PATCH TOP SCH ×2 (09:10→19:50)
[2022-10-24] MEDS: SIMETHICONE 80MG CHEW TAB PO SCH ×3 (09:10→19:47)
[2022-10-24] MEDS: ATORVASTATIN 20 MG TAB PO SCH (09:10)
[2022-10-24 16:27] VITALS: BP 109/37
[2022-10-24] MEDS: oxyCODONE 5MG TAB PO PRN (16:57)
[2022-10-24] MEDS: SENNA 8.6 MG TAB (SENOKOT) PO SCH (19:47)
[2022-10-24 20:00] VITALS: BP 97/54
[2022-10-25] MEDS: oxyCODONE 5MG TAB PO PRN (01:11)
[2022-10-25] MEDS: LEVOTHYROXINE 100MCG TABLET (0.1MG) PO SCH (05:41)
[2022-10-25 06:00] VITALS: BP 121/64
[2022-10-25] MEDS: oxyCODONE 5MG TAB PO SCH ×2 (06:25→11:32)
[2022-10-25] MEDS ORDERED: RENV2TAB PO (06:40)
[2022-10-25] MEDS ORDERED: OXYC-517 PO (06:40)
[2022-10-25] MEDS ORDERED: LEVO100T5 PO (06:40)
[2022-10-25] MEDS ORDERED: PRED5TA PO (06:40)
[2022-10-25] MEDS ORDERED: PANT40TA29 PO (06:40)
[2022-10-25] MEDS ORDERED: ATOR40TA75 PO (06:40)
[2022-10-25] MEDS ORDERED: GABA-1171 PO (06:40)
[2022-10-25] MEDS ORDERED: VELP5CHW PO (06:40)
[2022-10-25] MEDS ORDERED: ELIQ5TAB PO (06:40)
[2022-10-25] MEDS ORDERED: SUCR1TAB56 PO (06:40)
[2022-10-25] MEDS: SUCROFERRIC OXYHYDROXIDE 500MG CHEW TAB (VELPHORO) PO SCH ×2 (08:00→11:32)
[2022-10-25] MEDS: DOCUSATE SODIUM 100MG CAPSULE PO SCH (08:30)
[2022-10-25] MEDS: GABAPENTIN 100 MG CAP PO SCH (08:30)
[2022-10-25] MEDS: ATORVASTATIN 20 MG TAB PO SCH (08:30)
[2022-10-25] MEDS: (RENVELA) SEVELAMER **CARBONate** 800 MG TAB PO SCH ×2 (08:30→11:32)
[2022-10-25] MEDS: APIXABAN 5 MG TAB (ELIQUIS) PO SCH (08:30)
[2022-10-25] MEDS: SUCRALFATE 1 GM TAB PO SCH ×2 (08:30→11:32)
[2022-10-25] MEDS: predniSONE 5 MG TAB PO SCH (08:31)
[2022-10-25] MEDS: SIMETHICONE 80MG CHEW TAB PO SCH (08:31)
[2022-10-25] MEDS: PANTOPRAZOLE 40MG TAB (PROTONIX) PO SCH (08:31)
[2022-10-25] MEDS: DULoxetine 20MG CAP (CYMBALTA) PO SCH (08:31)
[2022-10-25] MEDS: BISACODYL 5MG TAB PO SCH (08:31)
[2022-10-25] MEDS: LIDOCAINE 5% (LIDODERM) PATCH TD SCH (08:35)
[2022-10-25] MEDS: REMEDY PHYTOPLEX Z-GUARD PASTE 113GM TUBE (FROM STOREROOM PRODUCT) TOP SCH (08:36)
[2022-10-25] MEDS: ANALGESIC BALM CRM 3OZ TOP SCH (08:36)
[2022-10-25] MEDS: DICLOFENAC EPOLAMINE 1.3% PATCH TOP SCH (09:00)
== END 2022-10-25 13:20 | disposition home health service (06) | DRG 643 ==
LOC: M PM&R 15:10
PROVIDERS: ADMIT Physical Medicine & Rehabilitation; ATTEND Physical Medicine & Rehabilitation
PROC: 5A1D70Z Performance of Urinary Filtration, Intermittent, Less than 6 Hours Per Day (ICD-10-PCS; principal; 2022-10-14)
DX: E03.9 Hypothyroidism, unspecified (principal); N18.6 End stage renal disease; I48.92 Unspecified atrial flutter; N25.81 Secondary hyperparathyroidism of renal origin; G73.7 Myopathy in diseases classified elsewhere; R60.0 Localized edema; M25.661 Stiffness of right knee, not elsewhere classified; M25.662 Stiffness of left knee, not elsewhere classified; M25.541 Pain in joints of right hand; M25.542 Pain in joints of left hand; E66.01 Morbid (severe) obesity due to excess calories; Z99.2 Dependence on renal dialysis; Z90.5 Acquired absence of kidney; E78.5 Hyperlipidemia, unspecified; K59.09 Other constipation; D63.8 Anemia in other chronic diseases classified elsewhere; G43.909 Migraine, unspecified, not intractable, without status migrainosus; F32.A Depression, unspecified; M19.90 Unspecified osteoarthritis, unspecified site; K21.9 Gastro-esophageal reflux disease without esophagitis; E83.39 Other disorders of phosphorus metabolism; I95.0 Idiopathic hypotension; Z74.09 Other reduced mobility; Z74.1 Need for assistance with personal care; K52.9 Noninfective gastroenteritis and colitis, unspecified; E87.5 Hyperkalemia; M62.81 Muscle weakness (generalized); S76.111D Strain of right quadriceps muscle, fascia and tendon, subsequent encounter; S86.811D Strain of other muscle(s) and tendon(s) at lower leg level, right leg, subsequent encounter; Z90.49 Acquired absence of other specified parts of digestive tract; Z98.84 Bariatric surgery status; Z79.01 Long term (current) use of anticoagulants; Z79.890 Hormone replacement therapy; Z79.899 Other long term (current) drug therapy; Z88.8 Allergy status to other drugs, medicaments and biological substances; Z91.048 Other nonmedicinal substance allergy status; Z91.02 Food additives allergy status; Z86.711 Personal history of pulmonary embolism; Z86.718 Personal history of other venous thrombosis and embolism

== ENCOUNTER 2022-11-03 20:40 | Inpatient (IN) | payer MEDICARE, MEDICAID ==
[~2022-11-03] VITALS: Ht 170.2 cm; Wt 133.3 kg
[~2022-11-03 20:40] MED LIST changes: +LEVO100T5 PO; +LEVO150T7 PO; +PRED5TA PO; +TRAM50TA2 PO
[2022-11-03 21:16] LABS: VENOUS HCO3 26.6 MMOL/L (23.0-27.0); VENOUS O2 SATURATION 98.8 % (60.0-80.0); VENOUS PARTIAL PRESSURE CO2 46.5 mmHg (38.0-50.0); VENOUS PARTIAL PRESSURE O2 138.8 mmHg (30.0-50.0); VENOUS PH 7.376 UNITS (7.330-7.430); VENOUS STANDARD HCO3 25.4 MMOL/L; VENOUS TOTAL CO2 28.1 MMOL/L (24.0-28.0)
[2022-11-03 21:20] LABS: BASO # 0.1 10^3/uL (0.0-0.2); BASO % 1.1 % (0.0-1.0); EOS # 0.8 10^3/uL (0.0-0.5); EOS % 11.6 % (0.0-3.0); HEMATOCRIT 34.9 % (36.0-47.0); HEMOGLOBIN 11.3 g/dl (12.0-15.5); LYMPH # 2.2 10^3/uL (1.5-5.0); LYMPH % 33.4 % (24.0-44.0); MEAN CORPUSCULAR HEMOGLOBIN 32.3 pg (27.0-33.0); MEAN CORPUSCULAR HGB CONC 32.4 g/dl (32.0-36.5); MEAN CORPUSCULAR VOLUME 99.7 fl (80.0-96.0); MONO # 0.8 10^3/uL (0.0-0.8); MONO % 12.8 % (2.0-8.0); NEUTROPHILS # 2.7 10^3/uL (1.5-8.5); NEUTROPHILS % 40.9 % (36.0-66.0); PLATELET COUNT, AUTOMATED 270 10^3/uL (150-450); WHITE BLOOD COUNT 6.6 10^3/uL (4.0-10.0)
[2022-11-03 21:48] LABS: ETHYL ALCOHOL (ETHANOL) 0.004 % (0.000-0.010)
[2022-11-03 21:55] LABS: HCG, SERUM QUALITATIVE NEGATIVE (NEGATIVE)
[2022-11-03 21:57] LABS: BLOOD UREA NITROGEN 61 MG/DL (9-23); CALCIUM LEVEL 9.4 MG/DL (8.5-10.1); CARBON DIOXIDE LEVEL 25 MMOL/L (20-31); CHLORIDE LEVEL 98 MMOL/L (98-107); CREATININE FOR GFR 9.51 MG/DL (0.55-1.30); FREE T4 0.64 NG/DL (0.89-1.76); GLOMERULAR FILTRATION RATE 4.8 (>58); GLUCOSE, FASTING 67 MG/DL (60-100); MAGNESIUM LEVEL 1.9 MG/DL (1.8-2.4); POTASSIUM SERUM 4.8 MMOL/L (3.5-5.1); SODIUM LEVEL 138 MMOL/L (136-145); THYROID STIMULATING HORMONE 62.563 uIU/ML (0.55-4.78)
[2022-11-03 22:10] LABS: RSV AMPLIFICATION NEGATIVE (NEGATIVE)
[2022-11-04] MEDS ORDERED: DEXTROSE 50% 50ML SYRINGE IV STA (00:55)
[2022-11-04] MEDS ORDERED: DEXTROSE 50% 50ML SYRINGE As Ordered ONE (00:56)
[2022-11-04] MEDS ORDERED: ACETAMINOPHEN 650MG ER TAB (TYLENOL ARTHRITIS) PO PRN (03:30)
[2022-11-04] MEDS ORDERED: OXYC-517 PO (03:37)
[2022-11-04] MEDS ORDERED: RENV2TAB PO (03:37)
[2022-11-04] MEDS ORDERED: ATOR40TA75 PO (03:37)
[2022-11-04] MEDS ORDERED: GABA-1171 PO (03:37)
[2022-11-04] MEDS ORDERED: VELP5CHW PO (03:37)
[2022-11-04] MEDS ORDERED: PANT-23 PO (03:37)
[2022-11-04] MEDS ORDERED: ELIQ5TAB PO (03:37)
[2022-11-04] MEDS ORDERED: SYNT100T PO (03:37)
[2022-11-04] MEDS ORDERED: CARA1TAB6 PO (03:38)
[2022-11-04] MEDS ORDERED: [UNRECOGNIZED DRUG - REMARK] PO (03:38)
[2022-11-04] MEDS ORDERED: VICKOIN TOP (03:38)
[2022-11-04] MEDS ORDERED: HOME MED LIST COMPLETE! XX SCH (03:40)
[2022-11-04] MEDS ORDERED: DULO20CA27 PO (03:41)
[2022-11-04 04:18] VITALS: BP_SYST 108; BP_SYST 113; BP_SYST 96; BP_DIAS 68; BP_DIAS 70; BP_DIAS 71
[2022-11-04] MEDS: D10W/0.45% SODIUM CHLORIDE 1,000 ML IV SCH (04:49)
[2022-11-04] MEDS ORDERED: GLUCOSE 4GM CHEW TABLET PO PRN (04:55)
[2022-11-04] MEDS ORDERED: DEXTROSE 50% 50ML SYRINGE IV PRN (04:55)
[2022-11-04] MEDS ORDERED: GLUCAGON INJ 1MG VIAL SC PRN (04:55)
[2022-11-04 05:28] LABS: HEMATOCRIT 34.8 % (36.0-47.0); HEMOGLOBIN 10.9 g/dl (12.0-15.5); MEAN CORPUSCULAR HEMOGLOBIN 31.4 pg (27.0-33.0); MEAN CORPUSCULAR HGB CONC 31.3 g/dl (32.0-36.5); MEAN CORPUSCULAR VOLUME 100.3 fl (80.0-96.0); PLATELET COUNT, AUTOMATED 264 10^3/uL (150-450); RED BLOOD COUNT 3.47 10^6/uL (4.00-5.40); WHITE BLOOD COUNT 5.9 10^3/uL (4.0-10.0)
[2022-11-04 06:00] LABS: BLOOD UREA NITROGEN 61 MG/DL (9-23); CALCIUM LEVEL 9.3 MG/DL (8.5-10.1); CARBON DIOXIDE LEVEL 26 MMOL/L (20-31); CHLORIDE LEVEL 99 MMOL/L (98-107); GLOMERULAR FILTRATION RATE 4.6 (>58); GLUCOSE, FASTING 71 MG/DL (60-100); SODIUM LEVEL 139 MMOL/L (136-145)
[2022-11-04] MEDS: LEVOTHYROXINE 100MCG TABLET (0.1MG) PO SCH (06:25)
[2022-11-04] MEDS: (RENVELA) SEVELAMER **CARBONate** 800 MG TAB PO SCH ×3 (06:56→17:59)
[2022-11-04] MEDS: SUCRALFATE 1 GM TAB PO SCH ×4 (06:56→20:11)
[2022-11-04 07:15] LABS: HEMOGLOBIN A1c 4.4 % (4.0-6.0)
[2022-11-04 07:20] VITALS: BP 107/60
[2022-11-04] MEDS ORDERED: HEPARIN 1,000UNITS/ML 10ML VIAL (FOR RADIOLOGY & DIALYSIS ONLY) XX SCH (07:40)
[2022-11-04] MEDS ORDERED: SODIUM CHLORIDE 0.9% 1000ML IV PRN (07:40)
[2022-11-04] MEDS ORDERED: LIDOCAINE 1% SDV 5ML VIAL SC PRN (07:40)
[2022-11-04] MEDS ORDERED: HEPARIN 1,000UNITS/ML 10ML VIAL (FOR RADIOLOGY & DIALYSIS ONLY) IV PRN (07:40)
[2022-11-04] MEDS: SUCROFERRIC OXYHYDROXIDE 500MG CHEW TAB (VELPHORO) PO SCH ×3 (08:00→17:59)
[2022-11-04] MEDS: PANTOPRAZOLE 40MG TAB (PROTONIX) PO SCH ×2 (08:02→20:11)
[2022-11-04] MEDS: APIXABAN 5 MG TAB (ELIQUIS) PO SCH ×2 (08:02→20:12)
[2022-11-04] MEDS: GABAPENTIN 100 MG CAP PO SCH ×3 (08:02→20:12)
[2022-11-04] MEDS: ATORVASTATIN 20 MG TAB PO SCH (08:02)
[2022-11-04 08:51] LABS: ACETAMINOPHEN LEVEL < 2.0 UG/ML (10.0-20.0)
[2022-11-04] MEDS ORDERED: ISOVUE-370 76% 100ML VIAL As Ordered ONE (13:01)
[2022-11-04] MEDS: DULoxetine 20MG CAP (CYMBALTA) PO SCH ×2 (13:04→20:11)
[2022-11-04 15:43] VITALS: BP 138/76
[2022-11-04 19:42] VITALS: BP 137/73
[2022-11-04] MEDS: oxyCODONE 5MG TAB PO PRN (20:12)
[2022-11-04 23:40] VITALS: BP 126/73
[2022-11-05] MEDS: D10W/0.45% SODIUM CHLORIDE 1,000 ML IV SCH (00:13)
[2022-11-05 04:00] VITALS: BP 125/67
[2022-11-05] MEDS: oxyCODONE 5MG TAB PO PRN (04:10)
[2022-11-05 06:12] LABS: HEMATOCRIT 32.9 % (36.0-47.0); HEMOGLOBIN 10.4 g/dl (12.0-15.5); MEAN CORPUSCULAR HEMOGLOBIN 32.1 pg (27.0-33.0); MEAN CORPUSCULAR HGB CONC 31.6 g/dl (32.0-36.5); MEAN CORPUSCULAR VOLUME 101.5 fl (80.0-96.0); PLATELET COUNT, AUTOMATED 233 10^3/uL (150-450); RED BLOOD COUNT 3.24 10^6/uL (4.00-5.40); WHITE BLOOD COUNT 6.2 10^3/uL (4.0-10.0)
[2022-11-05] MEDS: SUCRALFATE 1 GM TAB PO SCH ×2 (06:20→12:58)
[2022-11-05] MEDS: DULoxetine 20MG CAP (CYMBALTA) PO SCH (06:20)
[2022-11-05] MEDS: (RENVELA) SEVELAMER **CARBONate** 800 MG TAB PO SCH ×2 (06:20→12:57)
[2022-11-05] MEDS: PANTOPRAZOLE 40MG TAB (PROTONIX) PO SCH (06:21)
[2022-11-05] MEDS: LEVOTHYROXINE 100MCG TABLET (0.1MG) PO SCH (06:21)
[2022-11-05] MEDS: ATORVASTATIN 20 MG TAB PO SCH (06:21)
[2022-11-05] MEDS: APIXABAN 5 MG TAB (ELIQUIS) PO SCH (06:21)
[2022-11-05] MEDS: GABAPENTIN 100 MG CAP PO SCH (06:30)
[2022-11-05 06:44] LABS: CREATININE FOR GFR 6.7 MG/DL (0.55-1.30); GLOMERULAR FILTRATION RATE 7.1 (>58); MAGNESIUM LEVEL 1.8 MG/DL (1.8-2.4); PHOSPHORUS LEVEL 5.9 MG/DL (2.5-4.9); POTASSIUM SERUM 4.3 MMOL/L (3.5-5.1)
[2022-11-05] MEDS: SUCROFERRIC OXYHYDROXIDE 500MG CHEW TAB (VELPHORO) PO SCH ×2 (07:27→12:30)
[2022-11-05] MEDS ORDERED: HEPARIN 1,000UNITS/ML 10ML VIAL (FOR RADIOLOGY & DIALYSIS ONLY) IV PRN (07:35)
[2022-11-05] MEDS ORDERED: SODIUM CHLORIDE 0.9% 1000ML IV PRN (07:35)
[2022-11-05] MEDS ORDERED: LIDOCAINE 1% SDV 5ML VIAL SC PRN (07:35)
[2022-11-05] MEDS ORDERED: HEPARIN 1,000UNITS/ML 10ML VIAL (FOR RADIOLOGY & DIALYSIS ONLY) XX SCH (07:35)
[2022-11-05 07:49] VITALS: BP 123/58
[2022-11-05 11:58] VITALS: BP 94/62
== END 2022-11-05 13:32 | disposition home or self-care (01) | DRG 299 ==
LOC: EDBD 20:40 → M ED 20:40 → M ED INP 11-04 02:47 → M PCU 11-04 04:15
PROVIDERS: ADMIT Family Medicine; ATTEND Internal Medicine
PROC: 5A1D70Z Performance of Urinary Filtration, Intermittent, Less than 6 Hours Per Day (ICD-10-PCS; principal; 2022-11-04)
PROC: B246ZZZ Ultrasonography of Right and Left Heart (ICD-10-PCS; 2022-11-05)
DX: I77.75 Dissection of other precerebral arteries (principal); N18.6 End stage renal disease; Z68.42 Body mass index [BMI] 45.0-49.9, adult; E87.20 Acidosis, unspecified; G45.8 Other transient cerebral ischemic attacks and related syndromes; R55 Syncope and collapse; E21.1 Secondary hyperparathyroidism, not elsewhere classified; Z99.2 Dependence on renal dialysis; K21.9 Gastro-esophageal reflux disease without esophagitis; E03.9 Hypothyroidism, unspecified; E66.01 Morbid (severe) obesity due to excess calories; E78.5 Hyperlipidemia, unspecified; G43.909 Migraine, unspecified, not intractable, without status migrainosus; F32.A Depression, unspecified; E83.39 Other disorders of phosphorus metabolism; K64.8 Other hemorrhoids; I65.02 Occlusion and stenosis of left vertebral artery; I95.89 Other hypotension; M25.562 Pain in left knee; G62.9 Polyneuropathy, unspecified; M25.552 Pain in left hip; I48.91 Unspecified atrial fibrillation; E16.2 Hypoglycemia, unspecified; R42 Dizziness and giddiness; G89.29 Other chronic pain; D53.9 Nutritional anemia, unspecified; Z91.158 Patient's noncompliance with renal dialysis for other reason; Z91.048 Other nonmedicinal substance allergy status; Z91.02 Food additives allergy status; Z98.84 Bariatric surgery status; Z90.5 Acquired absence of kidney; Z90.49 Acquired absence of other specified parts of digestive tract; Z79.01 Long term (current) use of anticoagulants; Z88.8 Allergy status to other drugs, medicaments and biological substances; Z79.899 Other long term (current) drug therapy; Z79.890 Hormone replacement therapy

== ENCOUNTER 2022-12-06 04:50 | Observation (INO) | payer MEDICARE, MEDICAID ==
[~2022-12-06] VITALS: Ht 170.2 cm; Wt 134.5 kg
[~2022-12-06 04:50] MED LIST changes: +CARA1TAB6 PO; +DULO20CA27 PO; +SYNT100T PO; +VICKOIN TOP; +[UNRECOGNIZED DRUG - REMARK] PO
[2022-12-06 06:17] LABS: INR 1.39; PARTIAL THROMBOPLASTIN TIME 27.4 SECONDS (24.8-34.2); PROTHROMBIN TIME 17.3 SECONDS (12.5-14.5)
[2022-12-06] MEDS ORDERED: PERCOCET 5MG/325MG TAB PO ONE (06:40)
[2022-12-06] MEDS: DULoxetine 20MG CAP (CYMBALTA) PO SCH ×2 (09:00→21:27)
[2022-12-06] MEDS: DOCUSATE SODIUM 100MG CAPSULE PO SCH ×2 (09:00→21:26)
[2022-12-06 11:05] LABS: BASO # 0.1 10^3/uL (0.0-0.2); BASO % 1.2 % (0.0-1.0); EOS # 0.4 10^3/uL (0.0-0.5); EOS % 8.7 % (0.0-3.0); HEMATOCRIT 34.6 % (36.0-47.0); LYMPH # 1.6 10^3/uL (1.5-5.0); LYMPH % 36.9 % (24.0-44.0); MEAN CORPUSCULAR HEMOGLOBIN 31.2 pg (27.0-33.0); MEAN CORPUSCULAR HGB CONC 31.8 g/dl (32.0-36.5); MONO # 0.7 10^3/uL (0.0-0.8); MONO % 16.9 % (2.0-8.0); NEUTROPHILS # 1.5 10^3/uL (1.5-8.5); NEUTROPHILS % 36.1 % (36.0-66.0); PLATELET COUNT, AUTOMATED 232 10^3/uL (150-450); RED BLOOD COUNT 3.53 10^6/uL (4.00-5.40); WHITE BLOOD COUNT 4.3 10^3/uL (4.0-10.0)
[2022-12-06 11:41] LABS: CALCIUM LEVEL 8.7 MG/DL (8.5-10.1); CREATININE FOR GFR 14.56 MG/DL (0.55-1.30); GLOMERULAR FILTRATION RATE 2.9 (>58); POTASSIUM SERUM 4.7 MMOL/L (3.5-5.1)
[2022-12-06] MEDS ORDERED: MED REC IN PROGRESS XX SCH (12:45)
[2022-12-06 13:35] LABS: RSV AMPLIFICATION NEGATIVE (NEGATIVE)
[2022-12-06] MEDS ORDERED: ACETAMINOPHEN TAB 650MG DOSE (2X325MG) PO PRN (13:35)
[2022-12-06] MEDS ORDERED: HOME MED LIST COMPLETE! XX SCH (13:55)
[2022-12-06 14:44] VITALS: BP 112/61; TEMP 96.7; O2SAT 98
[2022-12-06] MEDS: SUCRALFATE 1 GM TAB PO SCH ×2 (17:06→21:26)
[2022-12-06] MEDS: GABAPENTIN 100 MG CAP PO SCH ×2 (17:06→21:26)
[2022-12-06] MEDS: PERCOCET 5MG/325MG TAB PO PRN (17:07)
[2022-12-06] MEDS: LEVOTHYROXINE 100MCG TABLET (0.1MG) PO SCH (17:10)
[2022-12-06] MEDS: (RENVELA) SEVELAMER **CARBONate** 800 MG TAB PO SCH (17:10)
[2022-12-06] MEDS ORDERED: HEPARIN 1,000UNITS/ML 10ML VIAL (FOR RADIOLOGY & DIALYSIS ONLY) XX SCH (17:20)
[2022-12-06 18:00] VITALS: BP 152/80; TEMP 97.4; O2SAT 98
[2022-12-06 20:00] VITALS: BP 104/50; TEMP 96.8; O2SAT 94
[2022-12-06] MEDS: SUCROFERRIC OXYHYDROXIDE 500MG CHEW TAB (VELPHORO) PO SCH (21:26)
[2022-12-06] MEDS: ATORVASTATIN 20 MG TAB PO SCH (21:27)
[2022-12-06] MEDS: APIXABAN 5 MG TAB (ELIQUIS) PO SCH (21:27)
[2022-12-07] VITALS (7 sets, daily range): BP systolic 92–115; BP diastolic 51–64; TEMP 95.5–98.4; O2SAT 90–96
[2022-12-07] MEDS ORDERED: LIDOCAINE 1% SDV 5ML VIAL SC PRN (06:00)
[2022-12-07] MEDS ORDERED: SODIUM CHLORIDE 0.9% 1000ML IV PRN (06:00)
[2022-12-07] MEDS: APIXABAN 5 MG TAB (ELIQUIS) PO SCH ×2 (06:14→21:15)
[2022-12-07] MEDS: LEVOTHYROXINE 100MCG TABLET (0.1MG) PO SCH (06:14)
[2022-12-07] MEDS: DULoxetine 20MG CAP (CYMBALTA) PO SCH ×2 (06:14→21:15)
[2022-12-07 06:15] LABS: BASO # 0.1 10^3/uL (0.0-0.2); BASO % 1.6 % (0.0-1.0); EOS # 0.4 10^3/uL (0.0-0.5); EOS % 11.5 % (0.0-3.0); HEMATOCRIT 32.4 % (36.0-47.0); HEMOGLOBIN 10.5 g/dl (12.0-15.5); LYMPH # 1.7 10^3/uL (1.5-5.0); MEAN CORPUSCULAR HEMOGLOBIN 31.4 pg (27.0-33.0); MEAN CORPUSCULAR HGB CONC 32.4 g/dl (32.0-36.5); MONO # 0.6 10^3/uL (0.0-0.8); MONO % 15.2 % (2.0-8.0); NEUTROPHILS % 26.2 % (36.0-66.0); PLATELET COUNT, AUTOMATED 244 10^3/uL (150-450); RED BLOOD COUNT 3.34 10^6/uL (4.00-5.40); WHITE BLOOD COUNT 3.8 10^3/uL (4.0-10.0)
[2022-12-07] MEDS: SUCRALFATE 1 GM TAB PO SCH ×4 (06:15→21:15)
[2022-12-07] MEDS: DOCUSATE SODIUM 100MG CAPSULE PO SCH ×2 (06:15→21:15)
[2022-12-07] MEDS: GABAPENTIN 100 MG CAP PO SCH ×3 (06:15→21:15)
[2022-12-07 06:37] LABS: CALCIUM LEVEL 9.5 MG/DL (8.5-10.1); CREATININE FOR GFR 15.21 MG/DL (0.55-1.30); GLOMERULAR FILTRATION RATE 2.8 (>58); POTASSIUM SERUM 4.7 MMOL/L (3.5-5.1)
[2022-12-07] MEDS: (RENVELA) SEVELAMER **CARBONate** 800 MG TAB PO SCH ×3 (07:58→17:41)
[2022-12-07] MEDS: SUCROFERRIC OXYHYDROXIDE 500MG CHEW TAB (VELPHORO) PO SCH ×3 (07:58→17:41)
[2022-12-07] MEDS: PANTOPRAZOLE 40MG TAB (PROTONIX) PO SCH (07:59)
[2022-12-07] MEDS ORDERED: ONDANSETRON 4MG TAB PO ONE ×2 (08:30→15:20)
[2022-12-07] MEDS ORDERED: MIRALAX *UNIT DOSE* 17GM PACKET PO PRN (08:45)
[2022-12-07] MEDS: MOM 30ML SUSPENSION UDC PO PRN (13:59)
[2022-12-07] MEDS: PERCOCET 5MG/325MG TAB PO PRN ×2 (14:00→23:34)
[2022-12-07] MEDS: ATORVASTATIN 20 MG TAB PO SCH (21:15)
[2022-12-08] VITALS (7 sets, daily range): BP systolic 82–133; BP diastolic 48–70; TEMP 96.7–97.9; O2SAT 93–100
[2022-12-08] MEDS: LEVOTHYROXINE 100MCG TABLET (0.1MG) PO SCH (05:19)
[2022-12-08 06:40] LABS: BASO # 0.1 10^3/uL (0.0-0.2); BASO % 1.3 % (0.0-1.0); EOS # 0.5 10^3/uL (0.0-0.5); EOS % 9.7 % (0.0-3.0); HEMATOCRIT 34.8 % (36.0-47.0); HEMOGLOBIN 10.6 g/dl (12.0-15.5); LYMPH # 2.6 10^3/uL (1.5-5.0); LYMPH % 48.5 % (24.0-44.0); MEAN CORPUSCULAR HEMOGLOBIN 31.1 pg (27.0-33.0); MEAN CORPUSCULAR HGB CONC 30.5 g/dl (32.0-36.5); MEAN CORPUSCULAR VOLUME 102.1 fl (80.0-96.0); MONO # 0.8 10^3/uL (0.0-0.8); MONO % 15.5 % (2.0-8.0); NEUTROPHILS # 1.3 10^3/uL (1.5-8.5); NEUTROPHILS % 24.8 % (36.0-66.0); PLATELET COUNT, AUTOMATED 219 10^3/uL (150-450); RED BLOOD COUNT 3.41 10^6/uL (4.00-5.40); WHITE BLOOD COUNT 5.3 10^3/uL (4.0-10.0)
[2022-12-08 07:21] LABS: CALCIUM LEVEL 9.4 MG/DL (8.5-10.1); CREATININE FOR GFR 8.83 MG/DL (0.55-1.30); GLOMERULAR FILTRATION RATE 5.2 (>58); POTASSIUM SERUM 4.6 MMOL/L (3.5-5.1)
[2022-12-08] MEDS ORDERED: MIDODRINE 2.5 MG TAB PO SCH (08:00)
[2022-12-08] MEDS: PANTOPRAZOLE 40MG TAB (PROTONIX) PO SCH (09:41)
[2022-12-08] MEDS: APIXABAN 5 MG TAB (ELIQUIS) PO SCH ×2 (09:41→21:22)
[2022-12-08] MEDS: SUCRALFATE 1 GM TAB PO SCH (09:41)
[2022-12-08] MEDS: DOCUSATE SODIUM 100MG CAPSULE PO SCH ×2 (09:41→21:22)
[2022-12-08] MEDS: DULoxetine 20MG CAP (CYMBALTA) PO SCH ×2 (09:41→21:22)
[2022-12-08] MEDS: GABAPENTIN 100 MG CAP PO SCH ×3 (09:42→21:22)
[2022-12-08] MEDS: (RENVELA) SEVELAMER **CARBONate** 800 MG TAB PO SCH ×3 (09:48→17:08)
[2022-12-08] MEDS: SUCROFERRIC OXYHYDROXIDE 500MG CHEW TAB (VELPHORO) PO SCH ×3 (09:49→17:08)
[2022-12-08] MEDS: PERCOCET 5MG/325MG TAB PO PRN (17:08)
[2022-12-08] MEDS: ATORVASTATIN 20 MG TAB PO SCH (21:22)
[2022-12-09 05:52] VITALS: BP 94/56; TEMP 98.5; O2SAT 95
[2022-12-09] MEDS: SENNA 8.6 MG TAB (SENOKOT) PO PRN ×2 (05:54→18:30)
[2022-12-09] MEDS: LEVOTHYROXINE 100MCG TABLET (0.1MG) PO SCH (05:54)
[2022-12-09] MEDS: APIXABAN 5 MG TAB (ELIQUIS) PO SCH ×2 (05:54→20:38)
[2022-12-09] MEDS: GABAPENTIN 100 MG CAP PO SCH ×3 (05:54→20:38)
[2022-12-09] MEDS: DOCUSATE SODIUM 100MG CAPSULE PO SCH ×2 (05:54→20:38)
[2022-12-09] MEDS: PANTOPRAZOLE 40MG TAB (PROTONIX) PO SCH (05:55)
[2022-12-09] MEDS: DULoxetine 20MG CAP (CYMBALTA) PO SCH ×2 (05:55→20:38)
[2022-12-09] MEDS ORDERED: SODIUM CHLORIDE 0.9% 1000ML IV PRN (06:00)
[2022-12-09 07:03] LABS: BASO # 0.1 10^3/uL (0.0-0.2); BASO % 1.9 % (0.0-1.0); EOS # 0.5 10^3/uL (0.0-0.5); HEMATOCRIT 33.2 % (36.0-47.0); HEMOGLOBIN 10.4 g/dl (12.0-15.5); LYMPH # 1.5 10^3/uL (1.5-5.0); LYMPH % 42.7 % (24.0-44.0); MEAN CORPUSCULAR HEMOGLOBIN 31.5 pg (27.0-33.0); MEAN CORPUSCULAR HGB CONC 31.3 g/dl (32.0-36.5); MEAN CORPUSCULAR VOLUME 100.6 fl (80.0-96.0); MONO # 0.5 10^3/uL (0.0-0.8); MONO % 14.4 % (2.0-8.0); NEUTROPHILS % 27.7 % (36.0-66.0); PLATELET COUNT, AUTOMATED 228 10^3/uL (150-450); WHITE BLOOD COUNT 3.6 10^3/uL (4.0-10.0)
[2022-12-09] MEDS: (RENVELA) SEVELAMER **CARBONate** 800 MG TAB PO SCH ×3 (07:26→18:30)
[2022-12-09] MEDS: SUCROFERRIC OXYHYDROXIDE 500MG CHEW TAB (VELPHORO) PO SCH ×4 (07:27→18:39)
[2022-12-09 08:02] LABS: ALBUMIN 2.8 G/DL (3.2-5.2); CALCIUM LEVEL 9.6 MG/DL (8.5-10.1); CREATININE FOR GFR 9.69 MG/DL (0.55-1.30); GLOMERULAR FILTRATION RATE 4.7 (>58); PHOSPHORUS LEVEL 6.9 MG/DL (2.5-4.9); POTASSIUM SERUM 4.5 MMOL/L (3.5-5.1)
[2022-12-09] MEDS ORDERED: PERCOCET PO (10:23)
[2022-12-09 17:45] VITALS: BP 96/52; TEMP 97; O2SAT 97
[2022-12-09] MEDS: MOM 30ML SUSPENSION UDC PO PRN (18:30)
[2022-12-09] MEDS: PERCOCET 5MG/325MG TAB PO PRN (18:30)
[2022-12-09] MEDS: ATORVASTATIN 20 MG TAB PO SCH (20:38)
[2022-12-10] MEDS: LEVOTHYROXINE 100MCG TABLET (0.1MG) PO SCH (05:39)
[2022-12-10 06:00] VITALS: BP 102/62; TEMP 97.3; O2SAT 92
[2022-12-10 06:28] LABS: BASO # 0.1 10^3/uL (0.0-0.2); BASO % 1.6 % (0.0-1.0); EOS # 0.4 10^3/uL (0.0-0.5); HEMATOCRIT 34.5 % (36.0-47.0); HEMOGLOBIN 10.8 g/dl (12.0-15.5); LYMPH # 1.1 10^3/uL (1.5-5.0); LYMPH % 35.2 % (24.0-44.0); MEAN CORPUSCULAR HEMOGLOBIN 31.1 pg (27.0-33.0); MEAN CORPUSCULAR HGB CONC 31.3 g/dl (32.0-36.5); MEAN CORPUSCULAR VOLUME 99.4 fl (80.0-96.0); MONO # 0.5 10^3/uL (0.0-0.8); MONO % 15.4 % (2.0-8.0); NEUTROPHILS # 1.2 10^3/uL (1.5-8.5); NEUTROPHILS % 36.8 % (36.0-66.0); PLATELET COUNT, AUTOMATED 199 10^3/uL (150-450); RED BLOOD COUNT 3.47 10^6/uL (4.00-5.40); WHITE BLOOD COUNT 3.2 10^3/uL (4.0-10.0)
[2022-12-10 06:44] LABS: CALCIUM LEVEL 9.6 MG/DL (8.5-10.1); CREATININE FOR GFR 6.52 MG/DL (0.55-1.30); GLOMERULAR FILTRATION RATE 7.4 (>58); POTASSIUM SERUM 3.9 MMOL/L (3.5-5.1)
[2022-12-10] MEDS: DOCUSATE SODIUM 100MG CAPSULE PO SCH (09:00)
[2022-12-10] MEDS: GABAPENTIN 100 MG CAP PO SCH (09:28)
[2022-12-10] MEDS: PANTOPRAZOLE 40MG TAB (PROTONIX) PO SCH (09:28)
[2022-12-10] MEDS: APIXABAN 5 MG TAB (ELIQUIS) PO SCH (09:28)
[2022-12-10] MEDS: SUCROFERRIC OXYHYDROXIDE 500MG CHEW TAB (VELPHORO) PO SCH (09:28)
[2022-12-10] MEDS: DULoxetine 20MG CAP (CYMBALTA) PO SCH (09:28)
[2022-12-10] MEDS: (RENVELA) SEVELAMER **CARBONate** 800 MG TAB PO SCH (09:29)
== END 2022-12-10 12:05 | disposition home health service (06) ==
LOC: M ED 04:50 → INTOOBSV 13:07 → M ED INP 13:07 → ENRESERV 13:42 → M PCU 14:32 → M MS4PR 12-08 20:55 → M MS5PR 12-09 17:30
PROVIDERS: ADMIT Internal Medicine; ATTEND Internal Medicine
DX: M25.552 Pain in left hip (principal); M25.562 Pain in left knee; M54.50 Low back pain, unspecified; W06.XXXA Fall from bed, initial encounter; Y92.092 Bedroom in other non-institutional residence as the place of occurrence of the external cause; N18.6 End stage renal disease; Z99.2 Dependence on renal dialysis; E03.9 Hypothyroidism, unspecified; I95.89 Other hypotension; R19.7 Diarrhea, unspecified; E78.5 Hyperlipidemia, unspecified; F32.A Depression, unspecified; S76.111D Strain of right quadriceps muscle, fascia and tendon, subsequent encounter; G43.909 Migraine, unspecified, not intractable, without status migrainosus; E83.39 Other disorders of phosphorus metabolism; K21.00 Gastro-esophageal reflux disease with esophagitis, without bleeding; N25.81 Secondary hyperparathyroidism of renal origin; Z87.19 Personal history of other diseases of the digestive system; T82.898A Other specified complication of vascular prosthetic devices, implants and grafts, initial encounter; Z86.79 Personal history of other diseases of the circulatory system; Z86.69 Personal history of other diseases of the nervous system and sense organs; Z86.718 Personal history of other venous thrombosis and embolism; Z86.711 Personal history of pulmonary embolism; E66.01 Morbid (severe) obesity due to excess calories; Z68.42 Body mass index [BMI] 45.0-49.9, adult; Z87.81 Personal history of (healed) traumatic fracture; Z88.8 Allergy status to other drugs, medicaments and biological substances; Z88.3 Allergy status to other anti-infective agents; Z91.048 Other nonmedicinal substance allergy status; Z91.018 Allergy to other foods; Z79.899 Other long term (current) drug therapy; Z79.01 Long term (current) use of anticoagulants; Z79.890 Hormone replacement therapy; Z90.5 Acquired absence of kidney
CPT/HCPCS: 36415; 70450; 72125; 72131; 73502; 73564; 80048; 80069; 85025; 85610; 85730; 87631; 93005; 97116; 97161; 97165; 97530; 99284; G0257; G0378

== ENCOUNTER → 2023-06-01 | Outpatient (REF) | payer MEDICARE, MEDICAID ==
[~2023-06-01] MED LIST changes: +CINA30TA5 PO; +DICL100G10 TOP; -DICL1GEL3 TOP; +GABA-282 PO; +HYDR-643 PO; +PERCOCET PO; +SYNT88TA2 PO
[2023-06-01 12:32] LABS: HEMATOCRIT 28.9 % (36.0-47.0); HEMOGLOBIN 8.9 g/dl (12.0-15.5); MEAN CORPUSCULAR HEMOGLOBIN 27.1 pg (27.0-33.0); MEAN CORPUSCULAR HGB CONC 30.8 g/dl (32.0-36.5); MEAN CORPUSCULAR VOLUME 88.1 fl (80.0-96.0); PLATELET COUNT, AUTOMATED 250 10^3/uL (150-450); RED BLOOD COUNT 3.28 10^6/uL (4.00-5.40); WHITE BLOOD COUNT 4.8 10^3/uL (4.0-10.0)
[2023-06-01 12:59] LABS: ALBUMIN 3.4 G/DL (3.2-5.2); ALKALINE PHOSPHATASE 110 U/L (46-116); ALT/SGPT < 9 U/L (7.0-40); AST/SGOT 12 U/L (<34); BILIRUBIN,TOTAL 0.7 MG/DL (0.3-1.2); BLOOD UREA NITROGEN 26 MG/DL (9-23); CARBON DIOXIDE LEVEL 32 MMOL/L (20-31); CHLORIDE LEVEL 96 MMOL/L (98-107); CREATININE FOR GFR 3.13 MG/DL (0.55-1.30); GLOMERULAR FILTRATION RATE 17.1 (>58); GLUCOSE, FASTING 64 MG/DL (60-100); POTASSIUM SERUM 3.5 MMOL/L (3.5-5.1); SODIUM LEVEL 136 MMOL/L (136-145)
== END ==
LOC: SKLAB2 12:00
PROVIDERS: ATTEND Internal Medicine
DX: E11.9 Type 2 diabetes mellitus without complications (principal); I10 Essential (primary) hypertension

== ENCOUNTER → 2023-06-19 | Outpatient (CLI) | payer MEDICARE, OTHER | LOC: M RAD 16:23 | PROVIDERS: ATTEND Internal Medicine | DX: M79.641 Pain in right hand (principal) ==

== ENCOUNTER → 2023-06-19 | Outpatient (REF) | payer MEDICARE, MEDICAID | LOC: SKLAB2 14:44 | PROVIDERS: ATTEND Internal Medicine | DX: Z53.8 Procedure and treatment not carried out for other reasons (principal) ==

== ENCOUNTER → 2023-07-12 | Outpatient (REF) | payer MEDICARE, OTHER ==
[2023-07-12 14:21] LABS: HEMATOCRIT 26.8 % (36.0-47.0); HEMOGLOBIN 8.4 g/dl (12.0-15.5); MEAN CORPUSCULAR HEMOGLOBIN 27.1 pg (27.0-33.0); MEAN CORPUSCULAR HGB CONC 31.3 g/dl (32.0-36.5); MEAN CORPUSCULAR VOLUME 86.5 fl (80.0-96.0); PLATELET COUNT, AUTOMATED 259 10^3/uL (150-450); WHITE BLOOD COUNT 6.2 10^3/uL (4.0-10.0)
[2023-07-12 14:42] LABS: FERRITIN 39.4 NG/ML (7.3-270.7)
== END ==
LOC: SKLAB2 13:30
PROVIDERS: ATTEND Internal Medicine
DX: N18.9 Chronic kidney disease, unspecified (principal)

== ENCOUNTER → 2023-07-13 | Outpatient (CLI) | payer MEDICARE, MEDICAID ==
[~2023-07-13] VITALS: Ht 170.2 cm; Wt 111.0 kg
[~2023-07-13] MED LIST changes: +ALBUTEROL SULFATE 2.5MG/0.5ML INH NEB SOLN INH PRN; +EPINEPHrine INJ 1 MG/ML 1ML AMP IM PRN; +FERRIC CARBOXYMALTOSE INJ 750 MG in NS 250 ML (>50kg) IV ONE; +NS 1,000 ML IV SCH; +diphenhydrAMINE 50MG/ML VIAL IV PRN; +methylPREDNISolone 125MG 2ML VIAL IV PRN
[2023-07-13 16:50] VITALS: BP 125/71; O2SAT 100
[2023-07-13 18:25] VITALS: BP 112/55; O2SAT 100
== END ==
LOC: M INFU 16:44
PROVIDERS: ATTEND Internal Medicine Nephrology
DX: E61.1 Iron deficiency (principal); Z88.3 Allergy status to other anti-infective agents; Z88.8 Allergy status to other drugs, medicaments and biological substances
CPT/HCPCS: 96365; J1439

== ENCOUNTER 2023-07-20 15:50 | Outpatient (CLI) | payer MEDICARE, MEDICAID ==
[~2023-07-20] VITALS: Ht 170.2 cm; Wt 111.5 kg
[~2023-07-20 15:50] MED LIST changes: -FERRIC CARBOXYMALTOSE INJ 750 MG in NS 250 ML (>50kg) IV ONE; -NS 1,000 ML IV SCH
[2023-07-20] MEDS: NS 1,000 ML IV SCH (15:55)
[2023-07-20] MEDS: FERRIC CARBOXYMALTOSE INJ 750 MG in NS 250 ML (>50kg) IV ONE (15:58)
[2023-07-20 16:00] VITALS: BP 95/52; O2SAT 94
[2023-07-20 17:16] VITALS: BP 110/62; O2SAT 96
== END 2023-07-20 17:16 | disposition home or self-care (01) ==
LOC: M INFU 15:50
PROVIDERS: ATTEND Internal Medicine Nephrology
DX: E61.1 Iron deficiency (principal); Z88.3 Allergy status to other anti-infective agents; Z88.8 Allergy status to other drugs, medicaments and biological substances
CPT/HCPCS: 96365; J1439

== ENCOUNTER → 2023-08-04 | Outpatient (CLI) | payer MEDICARE, MEDICAID ==
[~2023-08-04] MED LIST changes: -ALBUTEROL SULFATE 2.5MG/0.5ML INH NEB SOLN INH PRN; -EPINEPHrine INJ 1 MG/ML 1ML AMP IM PRN; -diphenhydrAMINE 50MG/ML VIAL IV PRN; -methylPREDNISolone 125MG 2ML VIAL IV PRN
== END ==
LOC: M WHC 11:40
PROVIDERS: ATTEND Nurse Practitioner Family
DX: Z12.31 Encounter for screening mammogram for malignant neoplasm of breast (principal)

== ENCOUNTER → 2023-09-08 | Outpatient (REF) | payer MEDICARE, MEDICAID ==
[2023-09-08 09:08] LABS: CHOLESTEROL RISK RATIO 2.4 (<5); HDL CHOLESTEROL 39.9 MG/DL (>40); LDL CHOLESTEROL 41.1 MG/DL (<100); NON-HDL-C 56.1 MG/DL; THYROID STIMULATING HORMONE 1.427 uIU/ML (0.55-4.78)
== END ==
LOC: SKLAB2 09-07 13:39
PROVIDERS: ATTEND Internal Medicine
DX: E78.5 Hyperlipidemia, unspecified (principal); E03.9 Hypothyroidism, unspecified

== ENCOUNTER → 2023-09-12 | Outpatient (REF) | payer MEDICARE, MEDICAID | LOC: SKLAB2 07:48 | PROVIDERS: ATTEND Internal Medicine | DX: E03.9 Hypothyroidism, unspecified (principal) ==

== ENCOUNTER → 2023-11-11 | Outpatient (CLI) | payer MEDICAID, MEDICARE | LOC: M RAD 14:29 | PROVIDERS: ATTEND Student in an Organized Health Care Education/Training Program | DX: R22.32 Localized swelling, mass and lump, left upper limb (principal); D48.19 Other specified neoplasm of uncertain behavior of connective and other soft tissue ==

== ENCOUNTER → 2023-11-15 | Outpatient (REF) | payer MEDICARE ==
[2023-11-15 14:16] LABS: HEMATOCRIT 34.5 % (36.0-47.0); HEMOGLOBIN 11.1 g/dl (12.0-15.5); MEAN CORPUSCULAR HGB CONC 32.2 g/dl (32.0-36.5); MEAN CORPUSCULAR VOLUME 96.4 fl (80.0-96.0); PLATELET COUNT, AUTOMATED 298 10^3/uL (150-450); RED BLOOD COUNT 3.58 10^6/uL (4.00-5.40); WHITE BLOOD COUNT 6.8 10^3/uL (4.0-10.0)
[2023-11-15 14:36] LABS: ALBUMIN 3.2 G/DL (3.2-5.2); BILIRUBIN,TOTAL 0.4 MG/DL (0.3-1.2); CALCIUM LEVEL 9.9 MG/DL (8.5-10.1); CREATININE FOR GFR 5.27 MG/DL (0.55-1.30); GLOMERULAR FILTRATION RATE 9.4 (>58); POTASSIUM SERUM 4.7 MMOL/L (3.5-5.1)
== END ==
LOC: SKLAB2 13:32
PROVIDERS: ATTEND Internal Medicine
DX: R79.9 Abnormal finding of blood chemistry, unspecified (principal)

== ENCOUNTER 2023-11-22 12:20 | Outpatient (CLI) | payer MEDICARE, MEDICAID ==
[~2023-11-22] VITALS: Ht 170.2 cm; Wt 110.0 kg
[~2023-11-22 12:20] MED LIST changes: +ALBUTEROL SULFATE 2.5MG/0.5ML INH NEB SOLN INH PRN; +EPINEPHrine INJ 1 MG/ML 1ML AMP IM PRN; +diphenhydrAMINE 50MG/ML VIAL IV PRN; +methylPREDNISolone 125MG 2ML VIAL IV PRN
[2023-11-22] MEDS ORDERED: NS 1,000 ML IV SCH (13:00)
[2023-11-22 13:10] VITALS: BP 112/58; O2SAT 98
[2023-11-22] MEDS: FERRIC CARBOXYMALTOSE INJ 750 MG in NS 250 ML (>50kg) IV ONE (13:44)
[2023-11-22 15:05] VITALS: BP 124/68; O2SAT 100
== END 2023-11-22 15:05 ==
LOC: M INFU 12:20
PROVIDERS: ATTEND Internal Medicine Nephrology
DX: D50.9 Iron deficiency anemia, unspecified (principal); Z88.8 Allergy status to other drugs, medicaments and biological substances; Z91.048 Other nonmedicinal substance allergy status
CPT/HCPCS: 96365; J1439

== ENCOUNTER 2023-11-29 10:43 | Outpatient (CLI) | payer MEDICARE, MEDICAID ==
[~2023-11-29] VITALS: Ht 170.2 cm; Wt 109.1 kg
[2023-11-29 10:50] VITALS: BP 96/53; O2SAT 96
[2023-11-29] MEDS ORDERED: FERRIC CARBOXYMALTOSE INJ 750 MG in NS 250 ML (>50kg) IV ONE (11:00)
[2023-11-29] MEDS ORDERED: NS 1,000 ML IV SCH (11:00)
[2023-11-29] MEDS: FERRIC CARBOXYMALTOSE INJ 750 MG in NS 250 ML (>50kg) IV ONE (11:01)
[2023-11-29 12:30] VITALS: BP 89/46; O2SAT 94
== END 2023-11-29 12:30 ==
LOC: M INFU 10:43
PROVIDERS: ATTEND Internal Medicine Nephrology
DX: D50.9 Iron deficiency anemia, unspecified (principal); Z88.8 Allergy status to other drugs, medicaments and biological substances; Z91.048 Other nonmedicinal substance allergy status
CPT/HCPCS: 96365; J1439

== ENCOUNTER 2023-12-21 11:30 | Inpatient (IN) | payer MEDICARE, MEDICAID ==
[2023-12-21] VITALS (17 sets, daily range): BP systolic 64–121; BP diastolic 35–72; TEMP 96.3–97.6; O2SAT 97–99
[~2023-12-21] VITALS: Ht 170.2 cm; Wt 117.8 kg
[~2023-12-21 11:30] MED LIST changes: -ALBUTEROL SULFATE 2.5MG/0.5ML INH NEB SOLN INH PRN; -EPINEPHrine INJ 1 MG/ML 1ML AMP IM PRN; -diphenhydrAMINE 50MG/ML VIAL IV PRN; -methylPREDNISolone 125MG 2ML VIAL IV PRN
[2023-12-21 12:16] LABS: BASO # 0.1 10^3/uL (0.0-0.2); EOS # 0.5 10^3/uL (0.0-0.5); EOS % 6.5 % (0.0-3.0); HEMATOCRIT 23.8 % (36.0-47.0); HEMOGLOBIN 7.8 g/dl (12.0-15.5); LYMPH # 2.3 10^3/uL (1.5-5.0); MEAN CORPUSCULAR HEMOGLOBIN 32.4 pg (27.0-33.0); MEAN CORPUSCULAR HGB CONC 32.8 g/dl (32.0-36.5); MEAN CORPUSCULAR VOLUME 98.8 fl (80.0-96.0); MONO # 0.8 10^3/uL (0.0-0.8); MONO % 10.3 % (2.0-8.0); NEUTROPHILS # 4.1 10^3/uL (1.5-8.5); NEUTROPHILS % 52.9 % (36.0-66.0); PLATELET COUNT, AUTOMATED 379 10^3/uL (150-450); RED BLOOD COUNT 2.41 10^6/uL (4.00-5.40); WHITE BLOOD COUNT 7.8 10^3/uL (4.0-10.0)
[2023-12-21 12:35] LABS: BILIRUBIN,TOTAL 0.5 MG/DL (0.3-1.2); CALCIUM LEVEL 9.2 MG/DL (8.5-10.1); CREATININE FOR GFR 2.73 MG/DL (0.55-1.30); POTASSIUM SERUM 3.9 MMOL/L (3.5-5.1); TOTAL PROTEIN 6.1 G/DL (5.7-8.2)
[2023-12-21 13:48] LABS: INR 1.42; PROTHROMBIN TIME 16.9 SECONDS (12.5-14.5)
[2023-12-21] MEDS: NS 500 ML IV ONE ×3 (14:30→16:10)
[2023-12-21] MEDS: MIDODRINE 5 MG TAB PO SCH (17:09)
[2023-12-21 20:53] LABS: HEMATOCRIT 25.5 % (36.0-47.0); HEMOGLOBIN 8.2 g/dl (12.0-15.5)
[2023-12-21] MEDS ORDERED: LEVO88TA3 PO (21:06)
[2023-12-21] MEDS ORDERED: BISA10SU4 PR (21:06)
[2023-12-21] MEDS ORDERED: TRAZ-252 PO (21:06)
[2023-12-21] MEDS ORDERED: PREG50CA PO (21:06)
[2023-12-21] MEDS ORDERED: DICL100G10 TOP (21:06)
[2023-12-21] MEDS ORDERED: LEVO100T5 PO (21:06)
[2023-12-21] MEDS ORDERED: CETI5TAB2 PO (21:06)
[2023-12-21] MEDS ORDERED: EXCETAB32 PO (21:06)
[2023-12-21] MEDS ORDERED: [UNRECOGNIZED DRUG - CODE] TOP (21:06)
[2023-12-21] MEDS ORDERED: CYCL-707 PO (21:06)
[2023-12-21] MEDS ORDERED: OXYC-517 PO (21:06)
[2023-12-21] MEDS ORDERED: MIDO5TA PO (21:06)
[2023-12-21 21:15] LABS: FOLLICLE STIMULATING HORMONE 10.4 mIU/ML; LUTEINIZING HORMONE 8.2 mIU/ML
[2023-12-21] MEDS ORDERED: HOME MED LIST COMPLETE! XX SCH (21:20)
[2023-12-21] MEDS: ATORVASTATIN 20 MG TAB PO SCH (22:08)
[2023-12-21] MEDS: oxyCODONE 5MG TAB PO PRN (22:08)
[2023-12-21] MEDS: MIDODRINE 5 MG TAB PO ONE (22:34)
[2023-12-22] VITALS (65 sets, daily range): BP systolic 66–136; BP diastolic 36–73; TEMP 97.3–98.1; O2SAT 97–100
[2023-12-22] MEDS: NOREPINEPHRINE 4MG IN D5 250ML 4 MG in IV 1 EA IV SCH (02:32)
[2023-12-22 05:00] LABS: HEMATOCRIT 28.4 % (36.0-47.0); HEMOGLOBIN 9.2 g/dl (12.0-15.5); MEAN CORPUSCULAR HEMOGLOBIN 31.5 pg (27.0-33.0); MEAN CORPUSCULAR HGB CONC 32.4 g/dl (32.0-36.5); MEAN CORPUSCULAR VOLUME 97.3 fl (80.0-96.0); PLATELET COUNT, AUTOMATED 369 10^3/uL (150-450); RED BLOOD COUNT 2.92 10^6/uL (4.00-5.40); WHITE BLOOD COUNT 8.1 10^3/uL (4.0-10.0)
[2023-12-22 05:29] LABS: ALBUMIN 2.9 G/DL (3.2-5.2); BILIRUBIN,TOTAL 1.3 MG/DL (0.3-1.2); CALCIUM LEVEL 9.2 MG/DL (8.5-10.1); CREATININE FOR GFR 4.26 MG/DL (0.55-1.30); GLOMERULAR FILTRATION RATE 11.9 (>58); POTASSIUM SERUM 4.7 MMOL/L (3.5-5.1); TOTAL PROTEIN 5.7 G/DL (5.7-8.2)
[2023-12-22] MEDS: LEVOTHYROXINE 88MCG TABLET (0.088 MG) PO SCH (05:56)
[2023-12-22] MEDS: LEVOTHYROXINE 100MCG TABLET (0.1MG) PO SCH (05:57)
[2023-12-22] MEDS: PANTOPRAZOLE 40MG TAB (PROTONIX) PO SCH (08:44)
[2023-12-22] MEDS: (RENVELA) SEVELAMER **CARBONate** 800 MG TAB PO SCH (08:44)
[2023-12-22] MEDS: DULoxetine 20MG CAP (CYMBALTA) PO SCH (08:44)
[2023-12-22] MEDS: CETIRIZINE (ZyrTEC) 5 MG/5 ML UDC DYE FREE PO SCH (08:45)
[2023-12-22] MEDS: medroxyPROGESTERone 5MG TABLET PO SCH ×2 (08:48→19:01)
[2023-12-22 10:31] LABS: HEMATOCRIT 27.8 % (36.0-47.0); HEMOGLOBIN 9.2 g/dl (12.0-15.5)
[2023-12-22] MEDS: FERRIC CARBOXYMALTOSE INJ 750 MG, VIAL MATE ADAPTER 1 EACH in NS 250 ML IV ONE (12:21)
[2023-12-22] MEDS: LACTATED RINGER'S 1000 ML IV ONE (14:08)
[2023-12-22] MEDS: PREGABALIN 50 MG CAP (LYRICA) PO SCH (14:36)
[2023-12-22 16:28] LABS: HEMATOCRIT 24.5 % (36.0-47.0)
[2023-12-22] MEDS: MIDODRINE 5 MG TAB PO SCH (17:02)
[2023-12-22] MEDS: traZODone 50 MG TAB PO SCH (21:13)
[2023-12-22] MEDS: CYCLOBENZAPRINE 10MG TABLET PO PRN (21:14)
[2023-12-22 22:16] LABS: HEMATOCRIT 24.5 % (36.0-47.0)
[2023-12-23 03:40] VITALS: BP 102/44; TEMP 97.5; O2SAT 93
[2023-12-23 03:58] LABS: HEMATOCRIT 23.9 % (36.0-47.0); HEMOGLOBIN 7.8 g/dl (12.0-15.5); MEAN CORPUSCULAR HEMOGLOBIN 32.4 pg (27.0-33.0); MEAN CORPUSCULAR HGB CONC 32.6 g/dl (32.0-36.5); MEAN CORPUSCULAR VOLUME 99.2 fl (80.0-96.0); PLATELET COUNT, AUTOMATED 321 10^3/uL (150-450); RED BLOOD COUNT 2.41 10^6/uL (4.00-5.40); WHITE BLOOD COUNT 9.3 10^3/uL (4.0-10.0)
[2023-12-23 04:47] LABS: ALBUMIN 2.5 G/DL (3.2-5.2); BILIRUBIN,TOTAL 0.4 MG/DL (0.3-1.2); CALCIUM LEVEL 8.2 MG/DL (8.5-10.1); CREATININE FOR GFR 6.35 MG/DL (0.55-1.30); GLOMERULAR FILTRATION RATE 7.5 (>58); POTASSIUM SERUM 4.7 MMOL/L (3.5-5.1); TOTAL PROTEIN 4.9 G/DL (5.7-8.2)
[2023-12-23] MEDS ORDERED: HEPARIN 1,000UNITS/ML 10ML VIAL (FOR RADIOLOGY & DIALYSIS ONLY) IV PRN (07:25)
[2023-12-23] MEDS ORDERED: LIDOCAINE 1% SDV 5ML VIAL SC PRN (07:25)
[2023-12-23] MEDS ORDERED: SODIUM CHLORIDE 0.9% 1000ML IV PRN (07:25)
[2023-12-23] MEDS ORDERED: HEPARIN 1,000UNITS/ML 10ML VIAL (FOR RADIOLOGY & DIALYSIS ONLY) XX SCH (07:25)
[2023-12-23] MEDS: DARBEPOETIN 200MCG/0.4ML *DIALYSIS* SYRINGE IV SCH (09:47)
[2023-12-23 12:31] LABS: HEMATOCRIT 26.6 % (36.0-47.0); HEMOGLOBIN 8.7 g/dl (12.0-15.5)
[2023-12-23] MEDS: medroxyPROGESTERone 5MG TABLET PO ONE (12:31)
[2023-12-23 12:39] VITALS: BP 134/72; TEMP 97.3; O2SAT 93
[2023-12-23 15:40] VITALS: BP 96/47
[2023-12-23 16:34] LABS: HEMATOCRIT 27.6 % (36.0-47.0); HEMOGLOBIN 8.8 g/dl (12.0-15.5)
[2023-12-23 19:47] VITALS: BP 105/67; TEMP 97.7; O2SAT 96
[2023-12-23 22:34] LABS: HEMATOCRIT 26.6 % (36.0-47.0); HEMOGLOBIN 8.6 g/dl (12.0-15.5)
[2023-12-24 04:35] VITALS: BP 104/67; TEMP 97.5; O2SAT 92
[2023-12-24 06:58] LABS: HEMATOCRIT 27.6 % (36.0-47.0); HEMOGLOBIN 8.9 g/dl (12.0-15.5); MEAN CORPUSCULAR HEMOGLOBIN 32.4 pg (27.0-33.0); MEAN CORPUSCULAR HGB CONC 32.2 g/dl (32.0-36.5); MEAN CORPUSCULAR VOLUME 100.4 fl (80.0-96.0); PLATELET COUNT, AUTOMATED 315 10^3/uL (150-450); RED BLOOD COUNT 2.75 10^6/uL (4.00-5.40); WHITE BLOOD COUNT 8.3 10^3/uL (4.0-10.0)
[2023-12-24 07:03] LABS: ALBUMIN 2.6 G/DL (3.2-5.2); BILIRUBIN,TOTAL 0.4 MG/DL (0.3-1.2); CALCIUM LEVEL 8.5 MG/DL (8.5-10.1); CREATININE FOR GFR 5.4 MG/DL (0.55-1.30); GLOMERULAR FILTRATION RATE 9.1 (>58); POTASSIUM SERUM 5.2 MMOL/L (3.5-5.1); TOTAL PROTEIN 5.3 G/DL (5.7-8.2)
[2023-12-24 08:30] VITALS: BP 127/58
[2023-12-24 11:00] VITALS: BP 80/37
[2023-12-24 12:33] VITALS: BP 103/52; TEMP 97.5; O2SAT 91
[2023-12-24 15:00] VITALS: BP 122/78
[2023-12-24 20:24] VITALS: BP 110/57; TEMP 97.3; O2SAT 100
[2023-12-25 04:00] VITALS: BP 94/41; TEMP 97.7; O2SAT 99
[2023-12-25 05:15] VITALS: BP 102/59
[2023-12-25 07:11] LABS: HEMATOCRIT 27.3 % (36.0-47.0); HEMOGLOBIN 8.6 g/dl (12.0-15.5); MEAN CORPUSCULAR HEMOGLOBIN 32.6 pg (27.0-33.0); MEAN CORPUSCULAR HGB CONC 31.5 g/dl (32.0-36.5); MEAN CORPUSCULAR VOLUME 103.4 fl (80.0-96.0); PLATELET COUNT, AUTOMATED 335 10^3/uL (150-450); RED BLOOD COUNT 2.64 10^6/uL (4.00-5.40); WHITE BLOOD COUNT 8.8 10^3/uL (4.0-10.0)
[2023-12-25 07:35] LABS: ALBUMIN 2.7 G/DL (3.2-5.2); BILIRUBIN,TOTAL 0.2 MG/DL (0.3-1.2); CALCIUM LEVEL 8.6 MG/DL (8.5-10.1); CREATININE FOR GFR 7.52 MG/DL (0.55-1.30); GLOMERULAR FILTRATION RATE 6.2 (>58); POTASSIUM SERUM 4.9 MMOL/L (3.5-5.1); TOTAL PROTEIN 5.3 G/DL (5.7-8.2)
[2023-12-25 09:06] VITALS: BP 87/56
[2023-12-25] MEDS ORDERED: MIDO5TA PO (10:43)
[2023-12-25 11:45] VITALS: BP 89/55
[2023-12-25 12:00] VITALS: TEMP 97.7; O2SAT 98
[2023-12-25] MEDS ORDERED: MEDR5TAB3 PO (12:54)
== END 2023-12-25 13:51 | DRG 314 ==
LOC: M ED 11:30 → M ED INP 15:45 → M ICU 17:53 → M MSPAV 12-22 17:17
PROVIDERS: ADMIT Internal Medicine Pulmonary Disease; ATTEND Internal Medicine
PROC: 30233N1 Transfusion of Nonautologous Red Blood Cells into Peripheral Vein, Percutaneous Approach (ICD-10-PCS; principal; 2023-12-21)
PROC: 5A1D70Z Performance of Urinary Filtration, Intermittent, Less than 6 Hours Per Day (ICD-10-PCS; 2023-12-23)
DX: I95.89 Other hypotension (principal); N18.6 End stage renal disease; K22.10 Ulcer of esophagus without bleeding; Z68.41 Body mass index [BMI] 40.0-44.9, adult; D62 Acute posthemorrhagic anemia; I48.91 Unspecified atrial fibrillation; I95.3 Hypotension of hemodialysis; E03.9 Hypothyroidism, unspecified; E78.5 Hyperlipidemia, unspecified; M54.9 Dorsalgia, unspecified; K21.9 Gastro-esophageal reflux disease without esophagitis; E66.01 Morbid (severe) obesity due to excess calories; D25.9 Leiomyoma of uterus, unspecified; E21.3 Hyperparathyroidism, unspecified; N93.9 Abnormal uterine and vaginal bleeding, unspecified; G89.29 Other chronic pain; Z86.711 Personal history of pulmonary embolism; Z86.718 Personal history of other venous thrombosis and embolism; Z79.01 Long term (current) use of anticoagulants; Z79.890 Hormone replacement therapy; Z79.899 Other long term (current) drug therapy; Z99.2 Dependence on renal dialysis; Z88.8 Allergy status to other drugs, medicaments and biological substances; Z91.048 Other nonmedicinal substance allergy status; Z91.02 Food additives allergy status

== ENCOUNTER → 2024-01-08 | Outpatient (REF) | payer MEDICARE, MEDICAID ==
[~2024-01-08] MED LIST changes: +BISA10SU4 PR; +CETI5TAB2 PO; +CYCL-707 PO; +EXCETAB32 PO; +LEVO88TA3 PO; +MEDR5TAB3 PO; +PREG50CA PO; +TRAZ-252 PO; +[UNRECOGNIZED DRUG - CODE] TOP
[2024-01-08 09:53] LABS: PHOSPHORUS LEVEL 5.5 MG/DL (2.5-4.9); PTH INTACT 790.8 PG/ML (18.5-88.0)
== END ==
LOC: SKLAB7 07:29
PROVIDERS: ATTEND Internal Medicine
DX: N18.6 End stage renal disease (principal)

== ENCOUNTER → 2024-01-17 | Outpatient (REF) | payer MEDICARE, MEDICAID ==
[2024-01-17 08:42] LABS: MEAN CORPUSCULAR HGB CONC 31.4 g/dl (32.0-36.5); MEAN CORPUSCULAR VOLUME 101.7 fl (80.0-96.0); PLATELET COUNT, AUTOMATED 257 10^3/uL (150-450); RED BLOOD COUNT 3.44 10^6/uL (4.00-5.40); WHITE BLOOD COUNT 5.8 10^3/uL (4.0-10.0)
[2024-01-17 09:06] LABS: ALBUMIN 3.1 G/DL (3.2-5.2); BILIRUBIN,TOTAL 0.4 MG/DL (0.3-1.2); CALCIUM LEVEL 9.3 MG/DL (8.5-10.1); CREATININE FOR GFR 6.22 MG/DL (0.55-1.30); GLOMERULAR FILTRATION RATE 7.7 (>58); POTASSIUM SERUM 4.9 MMOL/L (3.5-5.1); TOTAL PROTEIN 6.4 G/DL (5.7-8.2)
[2024-01-17 09:08] LABS: THYROID STIMULATING HORMONE 1.156 uIU/ML (0.55-4.78)
== END ==
LOC: SKLAB7 06:59
PROVIDERS: ATTEND Internal Medicine
DX: N18.6 End stage renal disease (principal); E03.9 Hypothyroidism, unspecified

== ENCOUNTER → 2024-02-08 | Outpatient (REF) | payer MEDICARE, MEDICAID ==
[2024-02-08 13:05] LABS: HEMATOCRIT 40.1 % (36.0-47.0); HEMOGLOBIN 13.4 g/dl (12.0-15.5); MEAN CORPUSCULAR HEMOGLOBIN 32.4 pg (27.0-33.0); MEAN CORPUSCULAR HGB CONC 33.4 g/dl (32.0-36.5); MEAN CORPUSCULAR VOLUME 96.9 fl (80.0-96.0); PLATELET COUNT, AUTOMATED 204 10^3/uL (150-450); RED BLOOD COUNT 4.14 10^6/uL (4.00-5.40); WHITE BLOOD COUNT 5.4 10^3/uL (4.0-10.0)
[2024-02-08 13:34] LABS: CALCIUM LEVEL 10.1 MG/DL (8.5-10.1); CREATININE FOR GFR 3.86 MG/DL (0.55-1.30); GLOMERULAR FILTRATION RATE 13.4 (>58); POTASSIUM SERUM 4.3 MMOL/L (3.5-5.1)
== END ==
LOC: SKLAB7 12:04
PROVIDERS: ATTEND Internal Medicine
DX: R42 Dizziness and giddiness (principal)

== ENCOUNTER → 2024-02-16 | Outpatient (CLI) | payer MEDICARE, MEDICAID ==
[~2024-02-16] MED LIST changes: +GASTROGRAFIN SOLUTION 30ML As Ordered ONE
== END ==
LOC: M RAD 13:15
PROVIDERS: ATTEND Nurse Practitioner
DX: R10.9 Unspecified abdominal pain (principal); K44.9 Diaphragmatic hernia without obstruction or gangrene; Z90.5 Acquired absence of kidney
CPT/HCPCS: 74150; Q9963

== ENCOUNTER 2024-03-14 10:27 | Emergency (ER) | payer MEDICARE, MEDICAID ==
[~2024-03-14] VITALS: Ht 170.2 cm; Wt 113.6 kg
[~2024-03-14 10:27] MED LIST changes: +GABA-1172 PO; -GABA-282 PO; -GASTROGRAFIN SOLUTION 30ML As Ordered ONE
[2024-03-14] MEDS: NS 500 ML IV ONE ×3 (10:49→16:47)
[2024-03-14 11:34] LABS: BASO # 0.1 10^3/uL (0.0-0.2); BASO % 0.8 % (0.0-1.0); EOS # 0.4 10^3/uL (0.0-0.5); EOS % 6.1 % (0.0-3.0); HEMATOCRIT 34.6 % (36.0-47.0); HEMOGLOBIN 11.6 g/dl (12.0-15.5); LYMPH # 2.4 10^3/uL (1.5-5.0); LYMPH % 36.4 % (24.0-44.0); MEAN CORPUSCULAR HGB CONC 33.5 g/dl (32.0-36.5); MEAN CORPUSCULAR VOLUME 92.5 fl (80.0-96.0); MONO # 0.7 10^3/uL (0.0-0.8); MONO % 10.4 % (2.0-8.0); PLATELET COUNT, AUTOMATED 287 10^3/uL (150-450); RED BLOOD COUNT 3.74 10^6/uL (4.00-5.40); WHITE BLOOD COUNT 6.5 10^3/uL (4.0-10.0)
[2024-03-14 11:41] LABS: VENOUS BASE EXCESS 9.1 (-2.0-2.0); VENOUS HCO3 33.1 MMOL/L (23.0-27.0); VENOUS O2 SATURATION 96.9 % (60.0-80.0); VENOUS PARTIAL PRESSURE CO2 42.8 mmHg (38.0-50.0); VENOUS PARTIAL PRESSURE O2 93.5 mmHg (30.0-50.0); VENOUS PH 7.506 UNITS (7.330-7.430); VENOUS STANDARD HCO3 32.8 MMOL/L; VENOUS TOTAL CO2 34.4 MMOL/L (24.0-28.0)
[2024-03-14 11:52] LABS: INR 1.45; PARTIAL THROMBOPLASTIN TIME 20.6 SECONDS (24.8-34.2); PROTHROMBIN TIME 17.2 SECONDS (12.5-14.5)
[2024-03-14 11:54] LABS: C REACTIVE PROTEIN QUANTITATIV 0.9 MG/DL (<1.0)
[2024-03-14 11:55] LABS: ALBUMIN 3.2 G/DL (3.2-5.2); BILIRUBIN,DIRECT 0.4 MG/DL (<0.4); BILIRUBIN,TOTAL 0.8 MG/DL (0.3-1.2); CALCIUM LEVEL 9.2 MG/DL (8.5-10.1); CREATININE FOR GFR 3.54 MG/DL (0.55-1.30); GLOMERULAR FILTRATION RATE 14.8 (>58); POTASSIUM SERUM 3.9 MMOL/L (3.5-5.1); TOTAL PROTEIN 7.2 G/DL (5.7-8.2)
[2024-03-14 12:11] LABS: PROCALCITONIN 0.36 ng/ml
[2024-03-14] MEDS ORDERED: MIDO10TA PO (12:51)
[2024-03-14] MEDS ORDERED: MEDR10TA9 PO (12:51)
[2024-03-14] MEDS ORDERED: HOME MED LIST COMPLETE! XX SCH (12:55)
[2024-03-14] MEDS ORDERED: NS 500 ML IV ONE (18:00)
[2024-03-14] MEDS ORDERED: MIDODRINE 5 MG TAB PO STA (18:23)
[2024-03-14 18:38] VITALS: BP 91/56; TEMP 98.4; O2SAT 98
== END 2024-03-14 19:32 | disposition home or self-care (01) ==
LOC: EDBD 10:27 → M ED 10:27
DX: E86.1 Hypovolemia (principal); I48.91 Unspecified atrial fibrillation; E78.5 Hyperlipidemia, unspecified; E03.9 Hypothyroidism, unspecified; N18.6 End stage renal disease; Z88.8 Allergy status to other drugs, medicaments and biological substances; Z79.01 Long term (current) use of anticoagulants; Z79.1 Long term (current) use of non-steroidal anti-inflammatories (NSAID); Z79.899 Other long term (current) drug therapy

== ENCOUNTER → 2024-03-20 | Outpatient (REF) | payer MEDICARE, MEDICAID ==
[~2024-03-20] MED LIST changes: +MEDR10TA9 PO; +MIDO10TA PO
== END ==
LOC: SKLAB7 13:39
PROVIDERS: ATTEND Internal Medicine
DX: I95.9 Hypotension, unspecified (principal); I44.0 Atrioventricular block, first degree; I45.10 Unspecified right bundle-branch block

== ENCOUNTER 2024-04-04 11:13 | Inpatient (IN) | payer MEDICAID, MEDICARE ==
[~2024-04-04] VITALS: Ht 170.2 cm; Wt 131.6 kg
[2024-04-04] MEDS ORDERED: DEXTROSE 50% 50ML SYRINGE As Ordered ONE (12:36)
[2024-04-04] MEDS: DEXTROSE 50% 50ML SYRINGE IV STA ×5 (13:00→18:58)
[2024-04-04 13:31] LABS: BASO # 0.1 10^3/uL (0.0-0.2); BASO % 0.8 % (0.0-1.0); EOS # 0.3 10^3/uL (0.0-0.5); EOS % 5.1 % (0.0-3.0); HEMATOCRIT 32.2 % (36.0-47.0); HEMOGLOBIN 10.5 g/dl (12.0-15.5); LYMPH # 1.6 10^3/uL (1.5-5.0); MEAN CORPUSCULAR HEMOGLOBIN 30.9 pg (27.0-33.0); MEAN CORPUSCULAR HGB CONC 32.6 g/dl (32.0-36.5); MEAN CORPUSCULAR VOLUME 94.7 fl (80.0-96.0); MONO # 0.7 10^3/uL (0.0-0.8); MONO % 10.1 % (2.0-8.0); NEUTROPHILS % 59.7 % (36.0-66.0); PLATELET COUNT, AUTOMATED 273 10^3/uL (150-450); WHITE BLOOD COUNT 6.7 10^3/uL (4.0-10.0)
[2024-04-04] MEDS: MIDODRINE 5 MG TAB PO ONE (13:56)
[2024-04-04 13:58] LABS: CK-MB VALUE MASS < 1.0 NG/ML (<3.6)
[2024-04-04 14:01] LABS: ALBUMIN 2.9 G/DL (3.2-5.2); ALKALINE PHOSPHATASE 176 U/L (46-116); ALT/SGPT 25 U/L (7.0-40); AST/SGOT 26 U/L (<34); BILIRUBIN,DIRECT 0.3 MG/DL (<0.4); BILIRUBIN,TOTAL 0.8 MG/DL (0.3-1.2); BLOOD UREA NITROGEN 20 MG/DL (9-23); CALCIUM LEVEL 8.8 MG/DL (8.5-10.1); CARBON DIOXIDE LEVEL 33 MMOL/L (20-31); CHLORIDE LEVEL 99 MMOL/L (98-107); GLOMERULAR FILTRATION RATE 12.5 (>58); GLUCOSE, FASTING 124 MG/DL (60-100); MAGNESIUM LEVEL 1.9 MG/DL (1.8-2.4); PHOSPHORUS LEVEL 3.6 MG/DL (2.5-4.9); POTASSIUM SERUM 4.6 MMOL/L (3.5-5.1); SODIUM LEVEL 136 MMOL/L (136-145); TOTAL PROTEIN 6.8 G/DL (5.7-8.2)
[2024-04-04 14:02] LABS: FREE T4 1.39 NG/DL (0.89-1.76)
[2024-04-04 14:03] LABS: THYROID STIMULATING HORMONE 0.374 uIU/ML (0.55-4.78)
[2024-04-04 14:05] LABS: CPK CREATINE PHOSPHOKINASE 53 U/L (34-145); MB/CK RELATIVE INDEX 1.88 (< OR =4)
[2024-04-04] MEDS ORDERED: CLEO300C2 PO (15:00)
[2024-04-04] MEDS ORDERED: DULO1CAP4 PO (15:00)
[2024-04-04] MEDS ORDERED: RENV2TAB PO (15:00)
[2024-04-04] MEDS ORDERED: BISA10SU4 PR (15:05)
[2024-04-04] MEDS ORDERED: ACET1TAB55 PO (15:05)
[2024-04-04] MEDS ORDERED: HOME MED LIST COMPLETE! XX SCH (15:05)
[2024-04-04] MEDS ORDERED: MED REC COMMENT (15:06)
[2024-04-04] MEDS: D10W/0.45% SODIUM CHLORIDE 1,000 ML IV SCH (15:56)
[2024-04-04] MEDS ORDERED: CYCLOBENZAPRINE 10MG TABLET PO PRN (16:15)
[2024-04-04] MEDS ORDERED: ACETAMINOPHEN 325 MG TAB PO PRN (16:15)
[2024-04-04] MEDS ORDERED: oxyCODONE 5MG TAB PO PRN (16:15)
[2024-04-04] MEDS ORDERED: BISACODYL 10MG SUPP PR PRN (16:15)
[2024-04-04] MEDS ORDERED: EXCEDRIN MIGRAINE TABLET PO PRN (16:15)
[2024-04-04] MEDS ORDERED: PILL CUTTER 1 EACH XX PRN (16:25)
[2024-04-04] MEDS: (RENVELA) SEVELAMER **CARBONate** 800 MG TAB PO SCH (18:00)
[2024-04-04 18:17] VITALS: BP 110/57; TEMP 97; O2SAT 97
[2024-04-04 20:20] VITALS: BP 84/52; TEMP 97.3; O2SAT 98
[2024-04-04] MEDS: ATORVASTATIN 20 MG TAB PO SCH (20:36)
[2024-04-04] MEDS: traZODone 50 MG TAB PO SCH (20:36)
[2024-04-04] MEDS: medroxyPROGESTERone 5MG TABLET PO SCH (20:36)
[2024-04-04] MEDS: CLINDAMYCIN 150MG CAPSULE PO SCH (20:36)
[2024-04-04] MEDS: APIXABAN 5 MG TAB (ELIQUIS) PO SCH (20:36)
[2024-04-04 21:38] VITALS: BP 95/53
[2024-04-05] VITALS (12 sets, daily range): BP systolic 72–132; BP diastolic 35–77; TEMP 97.1–98.4; O2SAT 95–99
[2024-04-05] MEDS: MIDODRINE 5 MG TAB PO STA (00:40)
[2024-04-05] MEDS: dexAMETHasone 20MG/5ML VIAL IV STA (00:42)
[2024-04-05 06:22] LABS: HEMATOCRIT 30.5 % (36.0-47.0); MEAN CORPUSCULAR HEMOGLOBIN 30.9 pg (27.0-33.0); MEAN CORPUSCULAR HGB CONC 32.8 g/dl (32.0-36.5); MEAN CORPUSCULAR VOLUME 94.1 fl (80.0-96.0); PLATELET COUNT, AUTOMATED 320 10^3/uL (150-450); RED BLOOD COUNT 3.24 10^6/uL (4.00-5.40); WHITE BLOOD COUNT 5.1 10^3/uL (4.0-10.0)
[2024-04-05 06:46] LABS: CORTISOL AM 3.2 UG/DL (4.3-22.4)
[2024-04-05] MEDS: LEVOTHYROXINE 100MCG TABLET (0.1MG) PO SCH (06:46)
[2024-04-05 06:51] LABS: CALCIUM LEVEL 8.3 MG/DL (8.5-10.1); CREATININE FOR GFR 6.08 MG/DL (0.55-1.30); GLOMERULAR FILTRATION RATE 7.9 (>58); POTASSIUM SERUM 5.4 MMOL/L (3.5-5.1)
[2024-04-05] MEDS: DULoxetine 20MG CAP (CYMBALTA) PO SCH (09:00)
[2024-04-05] MEDS: PANTOPRAZOLE 40MG TAB (PROTONIX) PO SCH (09:19)
[2024-04-05] MEDS: CETIRIZINE (ZyrTEC) 10 MG TAB PO SCH (09:19)
[2024-04-05] MEDS: MIDODRINE 5 MG TAB PO SCH (09:22)
[2024-04-05] MEDS: COSYNTROPIN 0.25 MG/ML 1ML VIAL IV ONE (10:44)
[2024-04-05 16:41] LABS: CREATININE FOR GFR 6.94 MG/DL (0.55-1.30); GLOMERULAR FILTRATION RATE 6.8 (>58); POTASSIUM SERUM 4.6 MMOL/L (3.5-5.1)
[2024-04-05] MEDS: HYDROCORTISONE 10 MG TAB PO SCH (21:42)
[2024-04-05] MEDS: CLINDAMYCIN 150MG CAPSULE PO STA (22:12)
[2024-04-06] VITALS (9 sets, daily range): BP systolic 88–119; BP diastolic 48–61; TEMP 97.1–98.4; O2SAT 91–100
[2024-04-06] MEDS ORDERED: SODIUM CHLORIDE 0.9% 1000ML IV PRN (06:00)
[2024-04-06] MEDS ORDERED: LIDOCAINE 1% SDV 5ML VIAL SC PRN (06:00)
[2024-04-06] MEDS ORDERED: HEPARIN 1,000UNITS/ML 10ML VIAL (FOR RADIOLOGY & DIALYSIS ONLY) XX SCH (06:00)
[2024-04-06] MEDS ORDERED: HEPARIN 1,000UNITS/ML 10ML VIAL (FOR RADIOLOGY & DIALYSIS ONLY) IV PRN (06:00)
[2024-04-06] MEDS: LEVOTHYROXINE 88MCG TABLET (0.088 MG) PO SCH (06:01)
[2024-04-07 03:37] VITALS: BP 99/50; TEMP 97.4; O2SAT 96
[2024-04-07 07:37] VITALS: BP 139/63; TEMP 97.6; O2SAT 96
[2024-04-07 09:17] VITALS: BP 92/50
[2024-04-07] MEDS ORDERED: LEVO88TA3 PO (09:27)
[2024-04-07] MEDS ORDERED: HYDR-4468 PO (09:27)
[2024-04-07 12:26] VITALS: BP 108/51
== END 2024-04-07 12:38 | DRG 640 ==
LOC: M ED 11:13 → M ED INP 11:14 → M PCU 18:04 → OBSVTOIN 04-05 13:47
PROVIDERS: ADMIT Internal Medicine; ATTEND Internal Medicine
PROC: 5A1D70Z Performance of Urinary Filtration, Intermittent, Less than 6 Hours Per Day (ICD-10-PCS; principal; 2024-04-06)
DX: E16.2 Hypoglycemia, unspecified (principal); N18.6 End stage renal disease; N25.81 Secondary hyperparathyroidism of renal origin; E27.40 Unspecified adrenocortical insufficiency; Z68.42 Body mass index [BMI] 45.0-49.9, adult; I95.89 Other hypotension; I48.91 Unspecified atrial fibrillation; E03.9 Hypothyroidism, unspecified; K21.9 Gastro-esophageal reflux disease without esophagitis; N80.9 Endometriosis, unspecified; R55 Syncope and collapse; M79.7 Fibromyalgia; E66.01 Morbid (severe) obesity due to excess calories; E83.39 Other disorders of phosphorus metabolism; E87.5 Hyperkalemia; N61.1 Abscess of the breast and nipple; D63.1 Anemia in chronic kidney disease; G47.00 Insomnia, unspecified; Z79.01 Long term (current) use of anticoagulants; Z79.899 Other long term (current) drug therapy; Z88.8 Allergy status to other drugs, medicaments and biological substances; Z91.02 Food additives allergy status; Z91.048 Other nonmedicinal substance allergy status; Z99.2 Dependence on renal dialysis; Z79.891 Long term (current) use of opiate analgesic; Z86.711 Personal history of pulmonary embolism; Z86.718 Personal history of other venous thrombosis and embolism; Z90.49 Acquired absence of other specified parts of digestive tract

== ENCOUNTER → 2024-04-24 | Outpatient (REF) | payer MEDICARE, MEDICAID ==
[~2024-04-24] MED LIST changes: +CLEO300C2 PO; -CYCL5TAB PO; +CYCL5TAB4 PO; +DULO1CAP4 PO; +HYDR-4468 PO; +MED REC COMMENT; -MIDO10TA PO; +MIDO10TA3 PO
[2024-04-24 16:04] LABS: BASO % 0.2 % (0.0-1.0); EOS % 0.4 % (0.0-3.0); HEMATOCRIT 29.8 % (36.0-47.0); HEMOGLOBIN 9.4 g/dl (12.0-15.5); LYMPH # 1.4 10^3/uL (1.5-5.0); LYMPH % 15.3 % (24.0-44.0); MEAN CORPUSCULAR HEMOGLOBIN 31.4 pg (27.0-33.0); MEAN CORPUSCULAR HGB CONC 31.5 g/dl (32.0-36.5); MEAN CORPUSCULAR VOLUME 99.7 fl (80.0-96.0); MONO # 0.5 10^3/uL (0.0-0.8); MONO % 5.1 % (2.0-8.0); NEUTROPHILS # 7.2 10^3/uL (1.5-8.5); NEUTROPHILS % 78.7 % (36.0-66.0); PLATELET COUNT, AUTOMATED 353 10^3/uL (150-450); RED BLOOD COUNT 2.99 10^6/uL (4.00-5.40); WHITE BLOOD COUNT 9.1 10^3/uL (4.0-10.0)
[2024-04-24 17:46] LABS: BILIRUBIN,TOTAL 0.6 MG/DL (0.3-1.2); CALCIUM LEVEL 7.3 MG/DL (8.5-10.1); CREATININE FOR GFR 6.86 MG/DL (0.55-1.30); GLOMERULAR FILTRATION RATE 6.9 (>58); TOTAL PROTEIN 6.1 G/DL (5.7-8.2)
[2024-04-24 17:50] LABS: POTASSIUM SERUM 6.1 MMOL/L (3.5-5.1)
== END ==
LOC: SKLAB7 11:22
PROVIDERS: ATTEND Internal Medicine
DX: Z01.818 Encounter for other preprocedural examination (principal)

== ENCOUNTER → 2024-04-24 | Outpatient (CLI) | payer MEDICARE, MEDICAID | LOC: M RAD 12:15 | PROVIDERS: ATTEND Nurse Practitioner | DX: Z01.818 Encounter for other preprocedural examination (principal) ==

== ENCOUNTER → 2024-04-26 | Outpatient (REF) | payer MEDICARE, MEDICAID | LOC: SKLAB7 08:28 | PROVIDERS: ATTEND Internal Medicine | DX: Z53.8 Procedure and treatment not carried out for other reasons (principal) ==

== ENCOUNTER → 2024-04-26 | Outpatient (REF) | payer MEDICARE, MEDICAID ==
[2024-04-26 08:03] LABS: PROLACTIN 15.43 NG/ML
[2024-04-26 09:14] LABS: CALCIUM LEVEL 7.5 MG/DL (8.5-10.1); CREATININE FOR GFR 5.64 MG/DL (0.55-1.30); GLOMERULAR FILTRATION RATE 8.6 (>58); POTASSIUM SERUM 4.5 MMOL/L (3.5-5.1)
== END ==
LOC: SKLAB7 04-25 07:00
PROVIDERS: ATTEND Internal Medicine
DX: E27.40 Unspecified adrenocortical insufficiency (principal)

== ENCOUNTER 2024-04-30 08:16 | Day surgery (SDC) | payer MEDICARE, MEDICAID ==
[~2024-04-30] VITALS: Ht 170.2 cm; Wt 133.8 kg
[2024-04-30 09:36] LABS: HEMATOCRIT 32.8 % (36.0-47.0); HEMOGLOBIN 10.7 g/dl (12.0-15.5)
[2024-04-30] MEDS: HYDROCORTISONE 100MG/2ML VIAL IV ONE ×2 (09:54→16:10)
[2024-04-30 10:03] LABS: ALBUMIN 3.3 G/DL (3.2-5.2); ALKALINE PHOSPHATASE 166 U/L (35-104); ALT/SGPT 37 U/L (7.0-40); AST/SGOT 20 U/L (<34); BILIRUBIN,TOTAL 0.6 MG/DL (0.3-1.2); BLOOD UREA NITROGEN 52 MG/DL (9-23); CALCIUM LEVEL 7.9 MG/DL (8.5-10.1); CARBON DIOXIDE LEVEL 30 MMOL/L (20-31); CHLORIDE LEVEL 99 MMOL/L (98-107); CREATININE FOR GFR 6.02 MG/DL (0.55-1.30); GLUCOSE, FASTING 91 MG/DL (60-100); POTASSIUM SERUM 5.3 MMOL/L (3.5-5.1); SODIUM LEVEL 138 MMOL/L (136-145); TOTAL PROTEIN 6.9 G/DL (5.7-8.2)
[2024-04-30 10:04] LABS: HCG, SERUM QUALITATIVE NEGATIVE (NEGATIVE)
[2024-04-30] MEDS ORDERED: fentaNYL 100 MCG/2 ML INJECTION As Ordered ONE (10:31)
[2024-04-30] MEDS ORDERED: dexmedeTOMIDine (4MCG/ML)200MCG/50ML BTL (PRECEDEX) As Ordered ONE (10:31)
[2024-04-30] MEDS ORDERED: propofoL 200 MG/20 ML VIAL As Ordered ONE (10:31)
[2024-04-30] MEDS ORDERED: MIDAZOLAM INJ 2MG/2ML VIAL As Ordered ONE (10:31)
[2024-04-30] MEDS ORDERED: ACETAMINOPHEN 1000MG/100ML IV BAG As Ordered ONE (10:31)
[2024-04-30] MEDS ORDERED: METOCLOPRAMIDE INJ 10MG/2ML VIAL As Ordered ONE (10:31)
[2024-04-30] MEDS ORDERED: ONDANSETRON 4MG 2ML VIAL As Ordered ONE (10:31)
[2024-04-30] MEDS ORDERED: PHENYLephrine 500MCG 5ML (100MCG/ML) SYRINGE As Ordered ONE (10:31)
[2024-04-30] MEDS ORDERED: LIDOCAINE 2% 100MG/5ML SDV (FOR ANES.) As Ordered ONE (10:31)
[2024-04-30 16:10] VITALS: BP 99/59; TEMP 97.3; O2SAT 99
== END 2024-04-30 16:31 | disposition home or self-care (01) ==
LOC: M SDC 08:16
PROVIDERS: ATTEND Obstetrics & Gynecology
DX: N84.0 Polyp of corpus uteri (principal); N95.0 Postmenopausal bleeding; I20.9 Angina pectoris, unspecified; I48.91 Unspecified atrial fibrillation; R07.9 Chest pain, unspecified; Z91.048 Other nonmedicinal substance allergy status; Z91.018 Allergy to other foods; Z88.8 Allergy status to other drugs, medicaments and biological substances; Z79.899 Other long term (current) drug therapy
CPT/HCPCS: 36415; 58558; 80053; 84703; 85014; 85018; 88305; J0131; J0665; J1100; J1720; J2250; J2371; J2405; J2765; J3010

== ENCOUNTER → 2024-05-16 | Outpatient (CLI) | payer MEDICARE, MEDICAID | LOC: M RAD 11:08 | PROVIDERS: ATTEND Nurse Practitioner | DX: D35.2 Benign neoplasm of pituitary gland (principal) ==

== ENCOUNTER 2024-06-26 13:14 | Observation (INO) | payer MEDICARE, MEDICAID ==
[~2024-06-26] VITALS: Ht 170.2 cm; Wt 149.8 kg
[~2024-06-26 13:14] MED LIST changes: -ACAR25TA2 PO; -BISA10SU59 PR; -[UNRECOGNIZED DRUG - CODE] PO
[2024-06-26 14:03] LABS: HEMATOCRIT 30.7 % (36.0-47.0); HEMOGLOBIN 10.1 g/dl (12.0-15.5); MEAN CORPUSCULAR HEMOGLOBIN 33.2 pg (27.0-33.0); MEAN CORPUSCULAR HGB CONC 32.9 g/dl (32.0-36.5); PLATELET COUNT, AUTOMATED 346 10^3/uL (150-450); RED BLOOD COUNT 3.04 10^6/uL (4.00-5.40); WHITE BLOOD COUNT 10.1 10^3/uL (4.0-10.0)
[2024-06-26] MEDS: PATIROMER SORBITEX CALCIUM 8.4 GM POWDER PACKET (VELTASSA) PO ONE (14:14)
[2024-06-26 15:00] LABS: CALCIUM LEVEL 8.2 MG/DL (8.5-10.1); CREATININE FOR GFR 10.05 MG/DL (0.55-1.30); GLOMERULAR FILTRATION RATE 4.4 (>58); POTASSIUM SERUM 6.2 MMOL/L (3.5-5.1)
[2024-06-26] MEDS: HYDROCORTISONE 100MG/2ML VIAL IV ONE (15:24)
[2024-06-26] MEDS: D5W/0.9% SODIUM CHLORIDE 1,000 ML IV ONE (15:25)
[2024-06-26] MEDS ORDERED: MOM 30ML SUSPENSION UDC PO PRN (19:10)
[2024-06-26] MEDS ORDERED: MED REC CURRENTLY UNOBTAINABLE XX SCH (19:15)
[2024-06-26 20:40] LABS: CALCIUM LEVEL 8.1 MG/DL (8.5-10.1); CREATININE FOR GFR 10.32 MG/DL (0.55-1.30); GLOMERULAR FILTRATION RATE 4.3 (>58); POTASSIUM SERUM 6.7 MMOL/L (3.5-5.1)
[2024-06-26] MEDS: CALCIUM GLUCONATE 1,000 MG in DEXTROSE 5% (D5W) MINI-BAG PLU 100 ML IV ONE (21:17)
[2024-06-26] MEDS: DEXTROSE 50% 50ML SYRINGE IV STA (21:17)
[2024-06-26] MEDS: SOD POLYSTYRENE SULFONATE SUSP 15GM 60ML UD PO ONE (21:17)
[2024-06-26] MEDS: HumuLIN R (REGULAR) INSULIN (NovoLIN R) **100U/ML** PER UNIT IV STA (21:17)
[2024-06-26] MEDS: FUROSEMIDE 40MG/4ML VIAL IV ONE (21:18)
[2024-06-26] MEDS: DOCUSATE SODIUM 100MG CAPSULE PO SCH (21:26)
[2024-06-26 22:02] VITALS: BP 122/58; TEMP 98.4; O2SAT 100
[2024-06-26 22:06] LABS: MAGNESIUM LEVEL 1.6 MG/DL (1.8-2.4); POTASSIUM SERUM 6.9 MMOL/L (3.5-5.1)
[2024-06-26] MEDS: ALBUTEROL SULFATE 2.5MG/0.5ML INH NEB SOLN NEB ONE (22:41)
[2024-06-26] MEDS: APIXABAN 5 MG TAB (ELIQUIS) PO SCH (23:58)
[2024-06-27 00:04] VITALS: BP 100/74; TEMP 98.6; O2SAT 99
[2024-06-27 04:00] VITALS: BP 116/50; TEMP 97.6; O2SAT 100
[2024-06-27 05:48] LABS: CALCIUM LEVEL 7.8 MG/DL (8.5-10.1); CREATININE FOR GFR 11.21 MG/DL (0.55-1.30); GLOMERULAR FILTRATION RATE 3.9 (>58); POTASSIUM SERUM 4.7 MMOL/L (3.5-5.1)
[2024-06-27] MEDS ORDERED: SODIUM CHLORIDE 0.9% 1000 ML IV PRN (06:50)
[2024-06-27] MEDS ORDERED: LIDOCAINE 1% SDV 5ML VIAL SC PRN (06:50)
[2024-06-27] MEDS ORDERED: HEPARIN 1,000UNITS/ML 10ML VIAL (FOR RADIOLOGY & DIALYSIS ONLY) IV PRN (06:50)
[2024-06-27] MEDS ORDERED: [UNRECOGNIZED DRUG - CODE] PO (08:01)
[2024-06-27] MEDS ORDERED: BISA10SU59 PR (08:01)
[2024-06-27] MEDS ORDERED: HYDR-4468 PO (08:01)
[2024-06-27] MEDS ORDERED: ACAR25TA2 PO (08:01)
[2024-06-27 08:03] VITALS: BP 153/54; TEMP 98.1; O2SAT 96
[2024-06-27] MEDS ORDERED: HOME MED LIST COMPLETE! XX SCH (08:05)
[2024-06-27] MEDS: HEPARIN 1,000UNITS/ML 10ML VIAL (FOR RADIOLOGY & DIALYSIS ONLY) XX SCH (09:35)
[2024-06-27] MEDS ORDERED: MAG SULF 1GM/100ML (MAG RUN) 1 GM in IV 1 EA IV SCH (12:00)
[2024-06-27] MEDS ORDERED: BISACODYL 10MG SUPP PR PRN (12:25)
[2024-06-27] MEDS ORDERED: oxyCODONE 5MG TAB PO PRN (12:25)
[2024-06-27] MEDS: LEVOTHYROXINE 88MCG TABLET (0.088 MG) PO SCH (12:36)
[2024-06-27] MEDS: CETIRIZINE (ZyrTEC) 5 MG/5 ML UDC DYE FREE PO SCH (13:47)
[2024-06-27] MEDS: PANTOPRAZOLE 40MG TAB (PROTONIX) PO SCH (13:47)
[2024-06-27] MEDS: HYDROCORTISONE 5MG TABLET PO SCH (13:47)
[2024-06-27] MEDS: DULoxetine 20MG CAP (CYMBALTA) PO SCH (13:48)
[2024-06-27] MEDS ORDERED: MIDODRINE 5 MG TAB PO SCH (16:00)
[2024-06-27] MEDS ORDERED: (RENVELA) SEVELAMER **CARBONate** 800 MG TAB PO SCH (16:00)
[2024-06-27] MEDS ORDERED: traZODone 50 MG TAB PO SCH (21:00)
[2024-06-27] MEDS ORDERED: ATORVASTATIN 20 MG TAB PO SCH (21:00)
== END 2024-06-27 14:04 ==
LOC: EDBD 13:14 → M ED 13:14 → M ED INP 19:08 → M PCU 21:57
PROVIDERS: ADMIT Student in an Organized Health Care Education/Training Program; ATTEND Student in an Organized Health Care Education/Training Program
DX: E87.5 Hyperkalemia (principal); N18.6 End stage renal disease; E16.2 Hypoglycemia, unspecified; E66.01 Morbid (severe) obesity due to excess calories; E86.0 Dehydration; I95.89 Other hypotension; E21.1 Secondary hyperparathyroidism, not elsewhere classified; R19.7 Diarrhea, unspecified; I48.91 Unspecified atrial fibrillation; D63.8 Anemia in other chronic diseases classified elsewhere; E27.40 Unspecified adrenocortical insufficiency; E28.2 Polycystic ovarian syndrome; Z90.49 Acquired absence of other specified parts of digestive tract; Z79.01 Long term (current) use of anticoagulants; Z79.899 Other long term (current) drug therapy; Z99.2 Dependence on renal dialysis; Z79.890 Hormone replacement therapy; Z91.048 Other nonmedicinal substance allergy status; Z91.018 Allergy to other foods; Z88.8 Allergy status to other drugs, medicaments and biological substances
CPT/HCPCS: 36415; 71045; 80048; 82947; 83735; 84132; 85027; 87350; 87426; 87486; 87581; 87633; 87798; 94640; 96361; 96365; 96375; 99285; G0257; G0378; J0612; J1720; J1940

== ENCOUNTER → 2024-06-26 | Outpatient (REF) | payer MEDICARE, MEDICAID ==
[~2024-06-26] MED LIST changes: +ACAR25TA2 PO; +BISA10SU59 PR; +[UNRECOGNIZED DRUG - CODE] PO
== END ==
LOC: SKLAB7 10:47
PROVIDERS: ATTEND Internal Medicine
DX: Z53.9 Procedure and treatment not carried out, unspecified reason (principal)

== ENCOUNTER → 2024-06-26 | Outpatient (REF) | payer MEDICARE, MEDICAID ==
[2024-06-26 11:50] LABS: HEMATOCRIT 28.6 % (36.0-47.0); HEMOGLOBIN 9.3 g/dl (12.0-15.5); MEAN CORPUSCULAR HEMOGLOBIN 33.1 pg (27.0-33.0); MEAN CORPUSCULAR HGB CONC 32.5 g/dl (32.0-36.5); MEAN CORPUSCULAR VOLUME 101.8 fl (80.0-96.0); PLATELET COUNT, AUTOMATED 312 10^3/uL (150-450); RED BLOOD COUNT 2.81 10^6/uL (4.00-5.40); WHITE BLOOD COUNT 8.1 10^3/uL (4.0-10.0)
[2024-06-26 12:31] LABS: CALCIUM LEVEL 7.8 MG/DL (8.5-10.1); CREATININE FOR GFR 10.02 MG/DL (0.55-1.30); GLOMERULAR FILTRATION RATE 4.4 (>58); POTASSIUM SERUM 5.7 MMOL/L (3.5-5.1)
== END ==
LOC: SKLAB7 11:00
PROVIDERS: ATTEND Internal Medicine
DX: J06.9 Acute upper respiratory infection, unspecified (principal); R11.2 Nausea with vomiting, unspecified

== ENCOUNTER 2024-08-22 11:33 | Observation (INO) | payer MEDICARE, MEDICAID ==
[~2024-08-22] VITALS: Ht 170.2 cm; Wt 142.0 kg
[2024-08-22] MEDS: medroxyPROGESTERone 5MG TABLET PO SCH (01:10)
[2024-08-22] MEDS: HYDROCORTISONE 10 MG TAB PO SCH (01:10)
[~2024-08-22 11:33] MED LIST changes: +ACAR25TA2 PO; +BISA10SU59 PR; +[UNRECOGNIZED DRUG - CODE] PO
[2024-08-22 12:28] LABS: HEMATOCRIT 33.1 % (36.0-47.0); MEAN CORPUSCULAR HEMOGLOBIN 32.4 pg (27.0-33.0); MEAN CORPUSCULAR HGB CONC 33.2 g/dl (32.0-36.5); MEAN CORPUSCULAR VOLUME 97.6 fl (80.0-96.0); PLATELET COUNT, AUTOMATED 467 10^3/uL (150-450); RED BLOOD COUNT 3.39 10^6/uL (4.00-5.40); WHITE BLOOD COUNT 13.6 10^3/uL (4.0-10.0)
[2024-08-22] MEDS: NS (Normal Saline) 0.9% 1,000 ML IV SCH ×2 (12:45→21:35)
[2024-08-22 12:47] LABS: CALCIUM LEVEL 8.3 MG/DL (8.5-10.1)
[2024-08-22 13:47] LABS: BASO # 0.1 10^3/uL (0.0-0.2); BASO % 0.5 % (0.0-1.0); EOS # 0.1 10^3/uL (0.0-0.5); EOS % 0.8 % (0.0-3.0); HEMATOCRIT 33.4 % (36.0-47.0); HEMOGLOBIN 11.1 g/dl (12.0-15.5); LYMPH # 2.8 10^3/uL (1.5-5.0); LYMPH % 21.6 % (24.0-44.0); MEAN CORPUSCULAR HEMOGLOBIN 32.5 pg (27.0-33.0); MEAN CORPUSCULAR HGB CONC 33.2 g/dl (32.0-36.5); MEAN CORPUSCULAR VOLUME 97.7 fl (80.0-96.0); MONO # 1.3 10^3/uL (0.0-0.8); MONO % 10.1 % (2.0-8.0); NEUTROPHILS # 8.7 10^3/uL (1.5-8.5); NEUTROPHILS % 66.3 % (36.0-66.0); PLATELET COUNT, AUTOMATED 479 10^3/uL (150-450); RED BLOOD COUNT 3.42 10^6/uL (4.00-5.40); WHITE BLOOD COUNT 13.1 10^3/uL (4.0-10.0)
[2024-08-22 14:00] LABS: INR 1.23; PARTIAL THROMBOPLASTIN TIME 27.1 SECONDS (24.8-34.2); PROTHROMBIN TIME 15.8 SECONDS (12.5-14.5)
[2024-08-22 14:11] LABS: ALBUMIN 3.1 G/DL (3.2-5.2); BILIRUBIN,DIRECT 0.2 MG/DL (<0.4); BILIRUBIN,TOTAL 0.7 MG/DL (0.3-1.2); C REACTIVE PROTEIN QUANTITATIV 0.63 MG/DL (<1.0); TOTAL PROTEIN 6.8 G/DL (5.7-8.2)
[2024-08-22 14:22] LABS: PROCALCITONIN 0.31 ng/ml
[2024-08-22] MEDS: MIDODRINE 5 MG TAB PO STA (14:59)
[2024-08-22] MEDS: (RENVELA) SEVELAMER **CARBONate** 800 MG TAB PO SCH ×2 (15:22→20:00)
[2024-08-22] MEDS: NS 0.9% IV STA (17:52)
[2024-08-22] MEDS: [UNRECOGNIZED DRUG - OTHER] IV STA (17:52)
[2024-08-22] MEDS: HYDROCORTISONE 100MG/2ML VIAL IV ONE (17:53)
[2024-08-22] MEDS: CEFEPIME HCL 2 GM in DEXTROSE 5% (D5W) ADV/MINI-BAG 50 ML IV ONE (18:21)
[2024-08-22] MEDS ORDERED: CORT20TA PO (20:43)
[2024-08-22] MEDS ORDERED: DICL20GE TP (20:43)
[2024-08-22] MEDS ORDERED: HOME MED LIST COMPLETE! XX SCH (20:45)
[2024-08-22] MEDS ORDERED: EXCEDRIN MIGRAINE TABLET PO PRN (21:35)
[2024-08-22] MEDS ORDERED: ACETAMINOPHEN 325 MG TAB PO PRN (21:35)
[2024-08-22] MEDS ORDERED: GLUCAGON INJ 1MG VIAL SC PRN (21:35)
[2024-08-22] MEDS ORDERED: GLUCOSE 4 GM CHEW PO PRN (21:35)
[2024-08-22] MEDS ORDERED: BISACODYL 10MG SUPP PR PRN (21:35)
[2024-08-22] MEDS ORDERED: DEXTROSE 50% 50ML SYRINGE IV PRN (21:35)
[2024-08-22] MEDS ORDERED: VANCOMYCIN HCL 1,000 MG, VIAL MATE ADAPTER 1 EACH in NS 250 ML IV SCH (21:45)
[2024-08-22] MEDS: INSULIN LISPRO (NovoLOG) PER UNIT SC SCH (22:13)
[2024-08-22] MEDS: APIXABAN 5 MG TAB (ELIQUIS) PO SCH (22:17)
[2024-08-22] MEDS: ATORVASTATIN 20 MG TAB PO SCH (22:17)
[2024-08-22 23:17] VITALS: BP 91/50; TEMP 97.6
[2024-08-22] MEDS: VANCOMYCIN HCL 1,500 MG, VIAL MATE ADAPTER 1 EACH in NS 500 ML IV ONE (23:32)
[2024-08-22] MEDS: traZODone 50 MG TAB PO SCH (23:32)
[2024-08-22] MEDS: DICLOFENAC EPOLAMINE 1.3% PATCH TOP SCH (23:33)
[2024-08-22] MEDS: oxyCODONE 5MG TAB PO PRN (23:40)
[2024-08-22] MEDS: CYCLOBENZAPRINE 10MG TABLET PO PRN (23:40)
[2024-08-23 03:39] VITALS: BP 90/47; TEMP 98.5; O2SAT 95
[2024-08-23 03:45] VITALS: BP 98/62
[2024-08-23] MEDS: LEVOTHYROXINE 88MCG TABLET (0.088 MG) PO SCH (05:40)
[2024-08-23 06:10] LABS: HEMATOCRIT 30.7 % (36.0-47.0); HEMOGLOBIN 9.8 g/dl (12.0-15.5); MEAN CORPUSCULAR HEMOGLOBIN 31.7 pg (27.0-33.0); MEAN CORPUSCULAR HGB CONC 31.9 g/dl (32.0-36.5); MEAN CORPUSCULAR VOLUME 99.4 fl (80.0-96.0); PLATELET COUNT, AUTOMATED 470 10^3/uL (150-450); RED BLOOD COUNT 3.09 10^6/uL (4.00-5.40); WHITE BLOOD COUNT 8.2 10^3/uL (4.0-10.0)
[2024-08-23 06:33] LABS: CALCIUM LEVEL 7.6 MG/DL (8.5-10.1); CREATININE FOR GFR 8.19 MG/DL (0.55-1.30); GLOMERULAR FILTRATION RATE 5.6 (>58); POTASSIUM SERUM 4.9 MMOL/L (3.5-5.1)
[2024-08-23] MEDS: INSULIN LISPRO (NovoLOG) PER UNIT SC SCH (07:30)
[2024-08-23 07:36] LABS: VANCOMYCIN RANDOM 35.5 UG/ML
[2024-08-23 07:58] VITALS: BP 108/66; TEMP 97.1; O2SAT 99
[2024-08-23] MEDS: (RENVELA) SEVELAMER **CARBONate** 800 MG TAB PO SCH (08:57)
[2024-08-23] MEDS: PANTOPRAZOLE 40MG TAB (PROTONIX) PO SCH (08:57)
[2024-08-23] MEDS: MIDODRINE 5 MG TAB PO SCH (08:58)
[2024-08-23] MEDS: CETIRIZINE (ZyrTEC) 5 MG/5 ML UDC DYE FREE PO SCH (08:58)
[2024-08-23] MEDS: DULoxetine 20MG CAP (CYMBALTA) PO SCH (08:59)
[2024-08-23] MEDS ORDERED: CORT5TAB2 PO (10:13)
[2024-08-23] MEDS ORDERED: CEFEPIME HCL 1 GM in DEXTROSE 5% (D5W) ADV/MINI-BAG 50 ML IV SCH (18:00)
[2024-08-24] MEDS ORDERED: VANCOMYCIN HCL 1,000 MG, VIAL MATE ADAPTER 1 EACH in NS 250 ML IV SCH (16:00)
== END 2024-08-23 13:24 ==
LOC: M ED 11:33 → EDBD 11:33 → M ED INP 11:34 → M PCU 23:07
PROVIDERS: ADMIT Internal Medicine; ATTEND Internal Medicine
DX: I95.9 Hypotension, unspecified (principal); Z99.2 Dependence on renal dialysis; E16.2 Hypoglycemia, unspecified; N18.6 End stage renal disease; D72.829 Elevated white blood cell count, unspecified; R74.02 Elevation of levels of lactic acid dehydrogenase [LDH]; E66.01 Morbid (severe) obesity due to excess calories; Z86.711 Personal history of pulmonary embolism; E27.40 Unspecified adrenocortical insufficiency; N25.81 Secondary hyperparathyroidism of renal origin; R00.0 Tachycardia, unspecified; E28.2 Polycystic ovarian syndrome; L98.499 Non-pressure chronic ulcer of skin of other sites with unspecified severity; Z79.2 Long term (current) use of antibiotics; D51.0 Vitamin B12 deficiency anemia due to intrinsic factor deficiency; M48.00 Spinal stenosis, site unspecified; R26.81 Unsteadiness on feet; R53.1 Weakness; Z90.89 Acquired absence of other organs; Z90.49 Acquired absence of other specified parts of digestive tract; Z90.81 Acquired absence of spleen; Z98.890 Other specified postprocedural states; Z88.8 Allergy status to other drugs, medicaments and biological substances; Z91.048 Other nonmedicinal substance allergy status; Z91.018 Allergy to other foods; Z79.899 Other long term (current) drug therapy; Z79.01 Long term (current) use of anticoagulants; Z79.890 Hormone replacement therapy
CPT/HCPCS: 36415; 71045; 80048; 80076; 80202; 82150; 83605; 84145; 85025; 85027; 85610; 85730; 86140; 86850; 86900; 86901; 87040; 93005; 93041; 94760; 96374; 96375; 97161; 99285; G0378; J0692; J1720; J3370

== ENCOUNTER → 2024-10-09 | Outpatient (REF) | payer MEDICARE, MEDICAID ==
[~2024-10-09] MED LIST changes: +CORT20TA PO; +CORT5TAB2 PO; +DICL20GE TP; -PREG50CA PO; +PREG50CA87 PO
[2024-10-09 08:56] LABS: HEMATOCRIT 34.7 % (36.0-47.0); HEMOGLOBIN 11.2 g/dl (12.0-15.5); MEAN CORPUSCULAR HEMOGLOBIN 32.4 pg (27.0-33.0); MEAN CORPUSCULAR HGB CONC 32.3 g/dl (32.0-36.5); MEAN CORPUSCULAR VOLUME 100.3 fl (80.0-96.0); PLATELET COUNT, AUTOMATED 414 10^3/uL (150-450); RED BLOOD COUNT 3.46 10^6/uL (4.00-5.40)
[2024-10-09 09:28] LABS: ALBUMIN 3.1 G/DL (3.2-5.2); BILIRUBIN,TOTAL 0.3 MG/DL (0.3-1.2); CALCIUM LEVEL 7.6 MG/DL (8.5-10.1); CHOLESTEROL RISK RATIO 4.88 (<5); CREATININE FOR GFR 7.83 MG/DL (0.55-1.30); LDL CHOLESTEROL 84.4 MG/DL (<100); POTASSIUM SERUM 4.4 MMOL/L (3.5-5.1); TOTAL PROTEIN 6.6 G/DL (5.7-8.2)
[2024-10-09 09:30] LABS: THYROID STIMULATING HORMONE 0.053 uIU/ML (0.55-4.78)
== END ==
LOC: SKLAB2 06:48
PROVIDERS: ATTEND Internal Medicine
DX: Z01.818 Encounter for other preprocedural examination (principal); I44.0 Atrioventricular block, first degree; I45.19 Other right bundle-branch block; Z79.899 Other long term (current) drug therapy

== ENCOUNTER → 2024-12-25 | Outpatient (REF) | payer MEDICARE, MEDICAID ==
[2024-12-25 08:29] LABS: PLATELET COUNT, AUTOMATED 318 10^3/uL (150-450)
[2024-12-25 08:54] LABS: ESTIMATED AVERAGE GLUCOSE 103.0 MG/DL (60-110)
[2024-12-25 09:04] LABS: CALCIUM LEVEL 7.1 MG/DL (8.5-10.1); CARBON DIOXIDE LEVEL 30.0 MMOL/L (20-31); CHLORIDE LEVEL 93.0 MMOL/L (98-107); CREATININE FOR GFR 7.88 MG/DL (0.55-1.30); GLOMERULAR FILTRATION RATE 5.9 (>58); POTASSIUM SERUM 5.1 MMOL/L (3.5-5.1); SODIUM LEVEL 140.0 MMOL/L (136-145)
== END ==
LOC: SKLAB2 07:00
PROVIDERS: ATTEND Internal Medicine
DX: N18.6 End stage renal disease (principal); E03.9 Hypothyroidism, unspecified; E11.9 Type 2 diabetes mellitus without complications

== ENCOUNTER → 2024-12-27 | Outpatient (REF) | payer MEDICARE, MEDICAID ==
[2024-12-27 10:56] LABS: PLATELET COUNT, AUTOMATED 338 10^3/uL (150-450)
== END ==
LOC: SKLAB2 09:35
PROVIDERS: ATTEND Internal Medicine
DX: D72.829 Elevated white blood cell count, unspecified (principal)

== ENCOUNTER → 2024-12-30 | Outpatient (REF) | payer MEDICARE, MEDICAID ==
[2024-12-30 10:44] LABS: PLATELET COUNT, AUTOMATED 335 10^3/uL (150-450)
== END ==
LOC: SKLAB2 09:26
PROVIDERS: ATTEND Internal Medicine
DX: D72.829 Elevated white blood cell count, unspecified (principal)

== ENCOUNTER → 2025-02-21 | Outpatient (REF) | payer MEDICARE, MEDICAID ==
[2025-02-21 12:35] LABS: BASO # 0.0 10^3/uL (0.0-0.2); BASO % 0.2 % (0.0-1.0); EOS # 0.1 10^3/uL (0.0-0.5); EOS % 0.5 % (0.0-3.0); LYMPH # 2.4 10^3/uL (1.5-5.0); LYMPH % 17.8 % (24.0-44.0); MONO # 1.7 10^3/uL (0.0-0.8); MONO % 12.2 % (2.0-8.0); NEUTROPHILS # 9.2 10^3/uL (1.5-8.5); NEUTROPHILS % 68.7 % (36.0-66.0); PLATELET COUNT, AUTOMATED 351 10^3/uL (150-450)
[2025-02-21 13:35] LABS: ALT/SGPT 17 U/L (7.0-40); AST/SGOT < 8 U/L (<34); CALCIUM LEVEL 7.2 MG/DL (8.5-10.1); CARBON DIOXIDE LEVEL 26 MMOL/L (20-31); CHLORIDE LEVEL 96 MMOL/L (98-107); CREATININE FOR GFR 14.91 MG/DL (0.55-1.30); GLOMERULAR FILTRATION RATE 2.7 (>58); POTASSIUM SERUM 4.6 MMOL/L (3.5-5.1); SODIUM LEVEL 142 MMOL/L (136-145)
== END ==
LOC: SKLAB2 06:46
PROVIDERS: ATTEND Nurse Practitioner Women's Health
DX: R19.7 Diarrhea, unspecified (principal)